=== PATIENT | male | born 1930 | race Caucasian/White ===

== ENCOUNTER 2017-01-13 18:18 | Inpatient (IN) | payer OTHER ==
--- NOTE | 2017-01-13 18:29 | PDOC ---
History of Present Illness - General History Source: Patient, EMS Exam Limitations: Other - History of Present Illness Initial Comments: 01/13/17 18:45 The patient is a 86 year old male, with a significant past medical history of A- Fib(on coumadin), CHF, hypertension, aortic aneurysm repair, aortic valve replacement, GI bleeds(Hgb was stable so they put the pt back on coumadin due to hx of A-Fib)who presents to the ED BIBA from [facility] for possible sepsis. Per EMS patient was found to be hypotensive when they arrived on scene[facility] reported patient was confused and not at his baseline mental status. As per Dr. Davila, patient did not appear well and bloodwork was done. Dr. Davila reports patient's INR was 3, but the patient does not have H&H results at this ti,e. Patient denies any abdominal pain, nausea, vomiting, diarrhea, or constipation. He denies any chest pain, shortness of breath, diaphoresis, or palpitations. Patients history is limited due to clinical condition. Allergies: NKDA Past Surgical History: Aortic aneurysm repair, aortic valve replacement. Social History: Current everyday smoker. No ETOH or recreational drug use reported. <Aline Steve - Last Filed: 01/13/17 19:08> <Lala Krause - Last Filed: 01/13/17 20:13> - General Stated Complaint: BLOOD PRESSURE PROBLEM Time Seen by Provider: 01/13/17 18:29 Past History <Aline Steve - Last Filed: 01/13/17 19:08> <Lala Krause - Last Filed: 01/13/17 20:13> - Past Medical History Allergies/Adverse Reactions: Allergies Allergy/AdvReac Type Severity Reaction Status Date / Time No Known Allergies Allergy Verified 01/13/17 18:29 Review of Systems - Review of Systems Able to Perform ROS?: No Comments:: 01/13/17 18:45 Unable to obtain due to clinical condition. <Aline Steve - Last Filed: 01/13/17 19:08> *Physical Exam - Vital Signs Last Vital Signs Temp Pulse Resp BP Pulse Ox 96.4 F L 62 18 79/45 89 L 01/13/17 18:20 01/13/17 18:20 01/13/17 18:20 01/13/17 18:20 01/13/17 18:20 - Physical Exam Comments: 01/13/17 18:46 GENERAL: Awake and confused, in no acute distress HEAD: No signs of trauma EYES: PERRLA, EOMI, sclera anicteric, conjunctiva clear ENT: Auricles normal inspection, hearing grossly normal, nares patent, oropharynx clear without exudates. Moist mucosa NECK: Normal ROM, supple, no lymphadenopathy, JVD, or masses LUNGS: Diffuse rales and ronchi. No wheezes, and no crackles HEART: Irregularly irregular. Tachycardic. normal S1 and S2, no murmurs, rubs or gallops ABDOMEN: Soft, nontender, normoactive bowel sounds. No guarding, no rebound. No masses EXTREMITIES: Normal range of motion, no edema. No clubbing or cyanosis. No cords, erythema, or tenderness NEUROLOGICAL: Cranial nerves II through XII grossly intact. limited speech, gait deferred SKIN: Warm, Dry, normal turgor, no rashes or lesions noted. <Aline Steve - Last Filed: 01/13/17 19:08> Heart Score/ECG Review - ECG Intrepretation Comment:: 01/13/17 18:46 Afib at 108, right bundle branch block. t wave inversions in the inferior leads. Abnormal EKG. <Aline Steve - Last Filed: 01/13/17 19:08> ED Treatment Course - LABORATORY CBC & Chemistry Diagram: 01/13/17 19:00 01/13/17 19:00 <Lala Krause - Last Filed: 01/13/17 20:13> Medical Decision Making - Critical Care Time Total Critical Care Time (minutes): 45 Critical Care Statement: The care of this patient involved high complexity decision making to prevent further life threatening deterioration of the patient 's condition and/or to evaluate & treat vital organ system(s) failure or risk of failure. <Aline Steve - Last Filed: 01/13/17 19:08> - Critical Care Time Total Critical Care Time (minutes): 45 Critical Care Statement: The care of this patient involved high complexity decision making to prevent further life threatening deterioration of the patient 's condition and/or to evaluate & treat vital organ system(s) failure or risk of failure. - Medical Decision Making 01/13/17 20:06 a/p: 86yo male presents for eval of hypotension and confusion -pt with hx of aortic valve replacement, gi bleed, on coumadin, hx of aortic aneurysm repair at [place], hx of etoh use. -pt with melena -pt with hematuria -pt hypotensive and tachycardic upon arrival -INR per PMD was 3 today -hx of GI bleeding requiring 14units pRBC transfusion. -sepsis protocol started -ivf hydration, labs, cultures, stool for c diff and for heme -bipap for resp distress -pt will need admission and ICU consultation 01/13/17 20:08 pt verbally agreed to blood transfusion. Verbalized full understanding of transufsion. AAOx3 01/13/17 20:08 pt signed out to the oncoming ED physician pending labs, further workup <Lala Krause - Last Filed: 01/13/17 20:13> *DC/Admit/Observation/Transfer - Attestations Scribe Attestion: 01/13/17 18:46 Documentation prepared by Aline Steve, acting as medical doctor md/medical director for Lala Krause DO. <Aline Steve - Last Filed: 01/13/17 19:08> <Lala Krause - Last Filed: 01/13/17 20:13> Diagnosis at time of Disposition: Hypotension, Acidosis, Respiratory acidosis, Gastrointestinal hemorrhage, Hematuria - Discharge Dispostion Condition at time of disposition: Critical - Referrals Referrals: Roque Chandra MD [Primary Care Provider] -
[2017-01-13] MEDS ORDERED: SODIUM CHLORIDE 0.9% 1000 ML INFUS.BAG IV ONE (18:43)
[2017-01-13 18:49] VITALS: BMI 32.5
[2017-01-13 19:20] LABS: BASOPHIL 0.2 % (0-2.0); EOSINOPHIL 0.5 % (0-4.5); MCH 31.2 pg (25.7-33.7); MCHC 32.9 g/dl (32.0-35.9); MEAN CELL VOLUME 94.7 fl (80-96); MEAN PLT VOLUME 7.3 fl (7.5-11.1); NEUTROPHILS 75.8 % (42.8-82.8); PLATELET COUNT 255 K/MM3 (134-434)
--- NOTE | 2017-01-13 19:31 | PDOC ---
*Physical Exam - Vital Signs Last Vital Signs Temp Pulse Resp BP Pulse Ox 96.3 F L 107 H 24 85/55 99 01/13/17 20:30 01/13/17 21:00 01/13/17 21:00 01/13/17 21:00 01/13/17 21:00 <YudiSandra A - Last Filed: 01/13/17 21:50> - Vital Signs Last Vital Signs Temp Pulse Resp BP Pulse Ox 96.4 F L 62 18 79/45 89 L 01/13/17 18:20 01/13/17 18:20 01/13/17 18:20 01/13/17 18:20 01/13/17 18:20 <Cristobal Dejesus - Last Filed: 01/14/17 05:30> ED Treatment Course - LABORATORY CBC & Chemistry Diagram: 01/13/17 19:00 01/13/17 19:00 - ADDITIONAL ORDERS Additional order review: Laboratory Results 01/13/17 01/13/17 01/13/17 21:35 21:35 20:40 INR PTT (Actin FS) Puncture Site Right brachial ABG pH 7.04 L* ABG pCO2 at Pt Temp 84.5 H* ABG pO2 at Pt Temp 133.0 H D ABG HCO3 21.7 L ABG O2 Sat (Measured) 98.2 ABG O2 Content 12.6 L ABG Base Excess -9.5 L Price Test Positive Carboxyhemoglobin 2.0 Methemoglobin 0.6 O2 Delivery Device Bi-pap Oxygen Flow Rate 60% Vent Mode S/t Vent Rate 17 PEEP 0.0 Pressure Support Vent 14/7 Sodium Potassium Chloride Carbon Dioxide Anion Gap BUN Creatinine Creat Clearance w eGFR Random Glucose Lactic Acid Calcium Magnesium Total Bilirubin AST ALT Alkaline Phosphatase Ammonia Creatine Kinase Troponin I B-Natriuretic Peptide Total Protein Albumin Lipase Urine Color Urine Appearance Urine pH Urine Protein Urine Glucose (UA) Urine Ketones Urine Blood Urine Nitrite Urine Bilirubin Urine Urobilinogen Urine RBC Urine WBC Ur Epithelial Cells Urine Bacteria Hyaline Casts Urine Mucus Stool Occult Blood Alcohol, Quantitative Blood Type O NEGATIVE Antibody Screen Crossmatch 01/13/17 01/13/17 01/13/17 20:25 19:40 19:38 INR PTT (Actin FS) Puncture Site Right radial ABG pH 7.08 L* ABG pCO2 at Pt Temp 78.9 H* ABG pO2 at Pt Temp 159.0 H* ABG HCO3 22.3 ABG O2 Sat (Measured) 98.9 ABG O2 Content 13.0 L ABG Base Excess -8.1 L Price Test Positive Carboxyhemoglobin 2.3 H Methemoglobin 0.6 O2 Delivery Device Bi-pap Oxygen Flow Rate 100% Vent Mode S/t Vent Rate 16 PEEP 0.0 Pressure Support Vent 14/7 Sodium Potassium Chloride Carbon Dioxide Anion Gap BUN Creatinine Creat Clearance w eGFR Random Glucose Lactic Acid Calcium Magnesium Total Bilirubin AST ALT Alkaline Phosphatase Ammonia Creatine Kinase Troponin I B-Natriuretic Peptide Total Protein Albumin Lipase Urine Color Urine Appearance Urine pH Urine Protein Urine Glucose (UA) Urine Ketones Urine Blood Urine Nitrite Urine Bilirubin Urine Urobilinogen Urine RBC Urine WBC Ur Epithelial Cells Urine Bacteria Hyaline Casts Urine Mucus Stool Occult Blood Alcohol, Quantitative 96.2 H* Blood Type Antibody Screen Crossmatch 01/13/17 01/13/17 01/13/17 19:00 19:00 19:00 INR PTT (Actin FS) Puncture Site ABG pH ABG pCO2 at Pt Temp ABG pO2 at Pt Temp ABG HCO3 ABG O2 Sat (Measured) ABG O2 Content ABG Base Excess Price Test Carboxyhemoglobin Methemoglobin O2 Delivery Device Oxygen Flow Rate Vent Mode Vent Rate PEEP Pressure Support Vent Sodium Potassium Chloride Carbon Dioxide Anion Gap BUN Creatinine Creat Clearance w eGFR Random Glucose Lactic Acid 2.7 H* Calcium Magnesium Total Bilirubin AST ALT Alkaline Phosphatase Ammonia 27.79 Creatine Kinase Troponin I B-Natriuretic Peptide Total Protein Albumin Lipase Urine Color Urine Appearance Urine pH Urine Protein Urine Glucose (UA) Urine Ketones Urine Blood Urine Nitrite Urine Bilirubin Urine Urobilinogen Urine RBC Urine WBC Ur Epithelial Cells Urine Bacteria Hyaline Casts Urine Mucus Stool Occult Blood Positive Alcohol, Quantitative Blood Type Antibody Screen Crossmatch 01/13/17 01/13/17 01/13/17 19:00 19:00 19:00 INR PTT (Actin FS) Puncture Site ABG pH ABG pCO2 at Pt Temp ABG pO2 at Pt Temp ABG HCO3 ABG O2 Sat (Measured) ABG O2 Content ABG Base Excess Price Test Carboxyhemoglobin Methemoglobin O2 Delivery Device Oxygen Flow Rate Vent Mode Vent Rate PEEP Pressure Support Vent Sodium 133 L Potassium 5.3 H Chloride 98 Carbon Dioxide 22 Anion Gap 13 BUN 73 H Creatinine 4.1 H Creat Clearance w eGFR 13.97 Random Glucose 121 H Lactic Acid Calcium 8.1 L Magnesium 2.3 Total Bilirubin 0.5 AST 17 ALT 15 Alkaline Phosphatase 72 Ammonia Creatine Kinase 43 Troponin I 0.03 B-Natriuretic Peptide 40076.41 H Total Protein 6.3 L Albumin 2.8 L Lipase 477 H Urine Color Urine Appearance Urine pH Urine Protein Urine Glucose (UA) Urine Ketones Urine Blood Urine Nitrite Urine Bilirubin Urine Urobilinogen Urine RBC Urine WBC Ur Epithelial Cells Urine Bacteria Hyaline Casts Urine Mucus Stool Occult Blood Alcohol, Quantitative Blood Type O NEGATIVE Antibody Screen Negative Crossmatch See Detail 01/13/17 01/13/17 19:00 19:00 INR 6.46 H* PTT (Actin FS) 67.5 H Puncture Site ABG pH ABG pCO2 at Pt Temp ABG pO2 at Pt Temp ABG HCO3 ABG O2 Sat (Measured) ABG O2 Content ABG Base Excess Price Test Carboxyhemoglobin Methemoglobin O2 Delivery Device Oxygen Flow Rate Vent Mode Vent Rate PEEP Pressure Support Vent Sodium Potassium Chloride Carbon Dioxide Anion Gap BUN Creatinine Creat Clearance w eGFR Random Glucose Lactic Acid Calcium Magnesium Total Bilirubin AST ALT Alkaline Phosphatase Ammonia Creatine Kinase Troponin I B-Natriuretic Peptide Total Protein Albumin Lipase Urine Color Dk. orange Urine Appearance Sl cloudy Urine pH 5.0 Urine Protein 1+ H Urine Glucose (UA) Negative Urine Ketones Negative Urine Blood 3+ H Urine Nitrite Negative Urine Bilirubin 1+ H Urine Urobilinogen 1.0 Urine RBC 1387 Urine WBC 27 Ur Epithelial Cells Rare Urine Bacteria Rare Hyaline Casts 3 Urine Mucus Rare Stool Occult Blood Alcohol, Quantitative Blood Type Antibody Screen Crossmatch 01/13/17 19:00 RBC 2.95 L MCV 94.7 MCHC 32.9 RDW 16.0 H MPV 7.3 L Neutrophils % 75.8 Lymphocytes % 9.8 Monocytes % 13.7 H Eosinophils % 0.5 Basophils % 0.2 - Medications Given in the ED: ED Medications Discontinued Medications Generic Name Dose Route Start Last Admin Trade Name Freq PRN Reason Stop Dose Admin Albuterol/Ipratropium 1 amp 01/13/17 21:06 01/13/17 21:33 Duoneb - NEB 01/13/17 21:07 1 amp ONCE ONE Administration Pantoprazole Sodium 80 mg/ 100 mls @ 200 mls/hr 01/13/17 20:03 01/13/17 20:23 Sodium Chloride IVPB 01/13/17 20:32 200 mls/hr ONCE ONE Administration Methylprednisolone Sodium Succinate 125 mg 01/13/17 20:12 01/13/17 21:20 Solu-Medrol - IVPB 01/13/17 20:13 125 mg ONCE ONE Administration Phytonadione 5 mg 01/13/17 19:56 01/13/17 20:30 Aqua Mephyton Injection - IVPB 01/13/17 19:57 5 mg ONCE ONE Administration Sodium Chloride 2,000 ml 01/13/17 18:43 01/13/17 19:25 Normal Saline - IV 01/13/17 18:44 2,000 ml ONCE ONE Administration <Sandra Bagley - Last Filed: 01/13/17 21:50> - LABORATORY CBC & Chemistry Diagram: 01/14/17 02:30 01/14/17 02:30 - ADDITIONAL ORDERS Additional order review: Laboratory Results 01/13/17 19:00 Stool Occult Blood Positive 01/13/17 19:00 RBC 2.95 L MCV 94.7 MCHC 32.9 RDW 16.0 H MPV 7.3 L Neutrophils % 75.8 Lymphocytes % 9.8 Monocytes % 13.7 H Eosinophils % 0.5 Basophils % 0.2 - Medications Given in the ED: ED Medications Discontinued Medications Generic Name Dose Route Start Last Admin Trade Name Yasmaniq PRN Reason Stop Dose Admin Sodium Chloride 2,000 ml 01/13/17 18:43 01/13/17 19:25 Normal Saline - IV 01/13/17 18:44 2,000 ml ONCE ONE Administration <Cristobal Dejesus - Last Filed: 01/14/17 05:30> Medical Decision Making - Medical Decision Making 01/13/17 21:[address] Dylon Chandra. [phone]. 01/13/17 21:[address] Dory Whipple. [phone]. 01/13/17 21:[address] Merissa So. [phone]. 01/13/17 21:[address] Gregorio Lazo. [phone]. <Sandra Bagley A - Last Filed: 01/13/17 21:50> - Medical Decision Making 01/13/17 19:29 Pt sigend out to me from Dr. Krause pt is an 86 yM hx of chf, copd, ckd, afib on coumadin c/p pm, s/p avr and aortic aneyrusm repair presents with AMS/Hypotension and melena/hematuria 01/13/17 20:08 pts labs reivewed hbg of 9 inr of 6 pt noted to be acidodic with an elevated bicarb - cmp pending will give FFP/vitamin K to reverse INR due to the pts hypotension willgive iu of probc to start pt agrees to blood transfusion anticipate ICU admission per [place] staff, pt also drinks daily, with melena, concern for GIB - will give octreotide and protonix gtt etoh level pending 01/13/17 21:28 pt clinically in improving mental status nguyen, aox3 bp still tenous with MAP around 65 perfusion seems to be improving with cap refill approx 1.5 sec awaiting blood will admit to ICU will consult GI case dw dr. obrien agree with mangement, requests admissiion under dr. bustamante service awaiting call back from dr. whipple 01/13/17 21:45 case evette whipple agree with admission to ICU requests consultation with dr. Rodriguez 01/13/17 21:[address] white agree with admission and reversal of INR and blood product & icu admission Case discussed in detail with admitting physician including history, physical exam and ancillary studies. Admitting physician has assumed care for the patient, will follow all pending diagnostics and will complete the evaluation and treatment. 01/13/17 22:50 case evette costa of ICU accepted for admission to icu latest ABG was prior to treatemtn with dina - will repeat another abg, as pt clnically is improving (AOx3), will defer intubatio for respiratory failure - if worsening mental status or blood gas will consider intubation. bp stable in the MAP 65 range. consider pressors/central line if persistently hyptensive <Cristobal Dejesus - Last Filed: 01/14/17 05:30> *DC/Admit/Observation/Transfer <Sandra Bagley - Last Filed: 01/13/17 21:50> - Discharge Dispostion Admit: Yes <Anjelica,Cristobal - Last Filed: 01/14/17 05:30> Diagnosis at time of Disposition: Acidosis, Respiratory acidosis Hypotension Qualifiers: Hypotension type: unspecified hypotension type Qualified Code(s): I95.9 - Hypotension, unspecified GI bleed Qualifiers: GI bleed type/associated pathology: melena Qualified Code(s): K92.1 - Melena Hematuria Qualifiers: Hematuria type: unspecified type Qualified Code(s): R31.9 - Hematuria, unspecified - Discharge Dispostion Condition at time of disposition: Critical - Referrals - Patient Instructions - Post Discharge Activity
[2017-01-13 19:37] LABS: PROTHROMBIN TIME (PATIENT) 73.8 SEC (9.98-11.88)
[2017-01-13 19:39] LABS: ARTERIAL BLD GAS O2 SATURATION 98.9 % (90-98.9); ARTERIAL BLOOD GAS BASE EXCESS -8.1 meq/l (-2-2); ARTERIAL BLOOD GAS HCO3 22.3 meq/L (22-26)
[2017-01-13 19:40] LABS: ACTIVATED PTT 67.5 SECONDS (26.9-34.4)
[2017-01-13 19:41] LABS: ALLENS TEST POSITIVE; ART PUNCT SITE RIGHT RADIAL; LPM/O2% 100%; PT. ON O2? YES; TYPE OF O2 BI-PAP; VENT RATE 16; VT/PRESS 14/7
[2017-01-13 19:42] LABS: ARTERIAL BLOOD GAS pH 7.08 (7.35-7.45)
[2017-01-13 19:44] LABS: METHEMOGLOBIN 0.6 % (0.4-1.5)
[2017-01-13 19:47] LABS: INR 6.46 (0.82-1.09)
[2017-01-13 19:50] LABS: URINE APPEARANCE SL CLOUDY; URINE BILIRUBIN 1+ (NEGATIVE); URINE BLOOD 3+ (NEGATIVE); URINE COLOR DK. ORANGE; URINE GLUCOSE (UA) NEGATIVE (NEGATIVE); URINE KETONE NEGATIVE (NEGATIVE); URINE NITRITE NEGATIVE (NEGATIVE); URINE PROTEIN 1+ (NEGATIVE)
[2017-01-13] MEDS ORDERED: PHYTONADIONE 10 MG/1 ML AMP IVPB ONE (19:56)
[2017-01-13] MEDS ORDERED: PANTOPRAZOLE SODIUM 80 MG in SODIUM CHLORIDE 100 ML IVPB ONE (20:03)
[2017-01-13 20:11] LABS: URINE BACTERIA RARE /hpf (NONE SEEN); URINE HYALINE CAST 3 /lpf; URINE MUCUS RARE; URINE RBC 1387 /hpf (0-3); URINE WBC 27 /hpf (3-5)
[2017-01-13] MEDS ORDERED: methylPREDNISolone NA SUCC 125 MG/2 ML VIAL IVPB ONE (20:12)
[2017-01-13] MEDS ORDERED: OCTREOTIDE ACETATE 1,200 MCG in DEXTROSE 5%-WATER - 488 ML IVPB SCH (20:15)
[2017-01-13] MEDS ORDERED: PANTOPRAZOLE SODIUM 80 MG in SODIUM CHLORIDE 100 ML IVPB SCH (20:15)
[2017-01-13] MEDS ORDERED: PANTOPRAZOLE SODIUM 40 MG VIAL ONE (20:19)
[2017-01-13] MEDS ORDERED: PANTOPRAZOLE SODIUM 200 ML IVPB ONE (20:19)
[2017-01-13] MEDS ORDERED: PHYTONADIONE 10 MG/1 ML AMP ONE (20:19)
[2017-01-13 20:37] LABS: ALBUMIN 2.8 g/dl (3.4-5.0); ALK PHOS 72 U/L (45-117); ANION GAP 13 (8-16); BILIRUBIN,TOTAL 0.5 mg/dL (0.2-1.0); CALCIUM 8.1 mg/dL (8.5-10.1); CO2 22 mmol/L (21-32); CPK 43 IU/L (39-308); CREATININE 4.1 mg/dL (0.7-1.3); GLUCOSE,RANDOM 121 mg/dL (74-106); MAGNESIUM 2.3 mg/dL (1.8-2.4); SGOT/AST 17 U/L (15-37); SGPT/ALT 15 U/L (12-78); TOT PROT 6.3 g/dl (6.4-8.2); TROPONIN I 0.03 ng/ml (0.00-0.05)
[2017-01-13] MEDS: PANTOPRAZOLE SODIUM 80 MG in SODIUM CHLORIDE 100 ML IVPB SCH (20:55)
[2017-01-13] MEDS ORDERED: ALBUTEROL SO4 2.5/IPRATROPIUM 0.5 INH SOL 3 ML VIAL.NEB. NEB ONE ×2 (21:06→21:30)
[2017-01-13] MEDS ORDERED: methylPREDNISolone NA SUCC 125 MG/2 ML VIAL ONE (21:12)
[2017-01-13 21:45] LABS: ARTERIAL BLD GAS O2 SATURATION 98.2 % (90-98.9); ARTERIAL BLOOD GAS BASE EXCESS -9.5 meq/l (-2-2); ARTERIAL BLOOD GAS HCO3 21.7 meq/L (22-26)
[2017-01-13 21:46] LABS: ALLENS TEST POSITIVE; ART PUNCT SITE RIGHT BRACHIAL; LPM/O2% 60%; PT. ON O2? YES; TYPE OF O2 BI-PAP; VENT RATE 17; VT/PRESS 14/7
[2017-01-13 21:47] LABS: ARTERIAL BLOOD GAS pH 7.04 (7.35-7.45)
[2017-01-13 21:48] LABS: METHEMOGLOBIN 0.6 % (0.4-1.5)
[2017-01-13] MEDS ORDERED: PHENYLEPHRINE HCL 10 MG/1 ML SINGLE DOSE VIAL ONE (23:50)
--- NOTE | 2017-01-14 00:27 | CONSULT ---
Consult Consult Specialty:: Pulm/CCM Reason for Consultation:: GIB in setting of supratherapeutic INR on coumadin - History of Present Illness Chief Complaint: AMS; respiratory acidosis History of Present Illness: 86yom [place] resident PMHx HTN, CHF, A-fib on coumadin, Aortic valve repair, Pacemaker, GIB, CKD was sent from [place] with report of melena, hypotension and AMS. In ED with hypercarbic respiratory failure, failing NIVV support. He was transferred to ICU for management In ED BP 82/53 after 1L NS bolus Had melena and hematuria. Labs notable for INR 6.46, WBC 8.0, Hgb 9.2, Lact 2.7, BUN/Creat 73/4.1, BNP 34,797.4, alcohol level 96.2urine WBC 27. Started on Protonix and octreotide drips for alcohol level and hx of daily ETOH use. ABG on NIVV 16/12 7.08, 78, 159. CXR with LLL consolidation and pulm congestion. Given Vit K 5mg. Transferred to ICU on NIVV In ICU intubated for hypercarbic respiratory failure. Started on phenylephrine drip for hypotension. FFP and PRBC reordered. Sedated with propofol. Dobutamine and Lasix started for diuresis and Azithro and Zosyn for possible pneumonia. - History Source Limitations to Obtaining History: Other (Lethargic) - Past Medical History Cardio/Vascular: Yes: CHF, HTN Gastrointestinal: Yes: GI Bleed Renal/: Yes: Renal Failure - Alcohol/Substance Use Hx Alcohol Use: No - Smoking History Smoking history: Current every day smoker Aproximately how many cigarettes per day: 10 - Social History Usual Living Arrangement: [facility]) History of Recent Travel: No Home Medications - Allergies Allergies/Adverse Reactions: Allergies Allergy/AdvReac Type Severity Reaction Status Date / Time No Known Allergies Allergy Verified 01/13/17 18:29 - Home Medications Home Medications: Ambulatory Orders Enalapril Maleate [Vasotec -] 10 mg PO DAILY 01/13/17 Ferrous Sulfate 325 mg PO BID 01/13/17 Folic Acid 1 mg PO DAILY 01/13/17 Guaifenesin [Mucinex] 600 mg PO BID 01/13/17 Pantoprazole Sodium 40 mg PO DAILY 01/13/17 Potassium Chloride [K-Tab ER] 10 meq PO DAILY 01/13/17 Simvastatin 40 mg PO HS 01/13/17 Sucralfate [Carafate -] 1 gm PO AC 01/13/17 Warfarin Na [Coumadin] 5 mg PO DAILY 01/13/17 Review of Systems Unable to obtain ROS, reason: Lethargic - Review of Systems Constitutional: reports: Lethargy Physical Exam Vital Signs: Vital Signs Temperature 96.3 F L 01/13/17 20:30 Pulse Rate 107 H 01/13/17 21:00 Respiratory Rate 24 01/13/17 21:00 Blood Pressure 85/55 01/13/17 21:00 O2 Sat by Pulse Oximetry (%) 100 01/13/17 23:34 Constitutional: Yes: Obese Eyes: Yes: Conjunctiva Clear, PERRL HENT: Yes: Atraumatic Neck: Yes: Supple Cardiovascular: Yes: Pulse Irregular, Gallop, S1, S2 Respiratory: Yes: Diminished, On BiPap Gastrointestinal: Yes: Soft, Abdomen, Obese, Melena Renal/: Yes: Concepcion Present, Hematuria Musculoskeletal: Yes: WNL Edema: No Peripheral Pulses WNL: Yes Neurological: Yes: Lethargy, Other (Easily aroused; follows commands) Psychiatric: Yes: Other (lethargic) Labs: CBC,CMP WBC 8.0 K/mm3 (4.0-10.0) 01/13/17 19:00 RBC 2.95 M/mm3 (4.00-5.60) L 01/13/17 19:00 Hgb 9.2 GM/dL (11.7-16.9) L 01/13/17 19:00 Hct 28.0 % (35.4-49) L 01/13/17 19:00 MCV 94.7 fl (80-96) 01/13/17 19:00 MCH 31.2 pg (25.7-33.7) 01/13/17 19:00 MCHC 32.9 g/dl (32.0-35.9) 01/13/17 19:00 RDW 16.0 % (11.9-15.9) H 01/13/17 19:00 Plt Count 255 K/MM3 (134-434) 01/13/17 19:00 MPV 7.3 fl (7.5-11.1) L 01/13/17 19:00 Neutrophils % 75.8 % (42.8-82.8) 01/13/17 19:00 Lymphocytes % 9.8 % (8-40) 01/13/17 19:00 Monocytes % 13.7 % (3.8-10.2) H 01/13/17 19:00 Eosinophils % 0.5 % (0-4.5) 01/13/17 19:00 Basophils % 0.2 % (0-2.0) 01/13/17 19:00 Sodium 133 mmol/L (136-145) L 01/13/17 19:00 Potassium 5.3 mmol/L (3.5-5.1) H 01/13/17 19:00 Chloride 98 mmol/L (98-107) 01/13/17 19:00 Carbon Dioxide 22 mmol/L (21-32) 01/13/17 19:00 Anion Gap 13 (8-16) 01/13/17 19:00 BUN 73 mg/dL (7-18) H 01/13/17 19:00 Creatinine 4.1 mg/dL (0.7-1.3) H 01/13/17 19:00 Creat Clearance w eGFR 13.97 (>60) 01/13/17 19:00 Random Glucose 121 mg/dL (74-106) H 01/13/17 19:00 Lactic Acid 2.7 mmol/L (0.4-2.0) H* 01/13/17 19:00 Calcium 8.1 mg/dL (8.5-10.1) L 01/13/17 19:00 Magnesium 2.3 mg/dL (1.8-2.4) 01/13/17 19:00 Total Bilirubin 0.5 mg/dL (0.2-1.0) 01/13/17 19:00 AST 17 U/L (15-37) 01/13/17 19:00 ALT 15 U/L (12-78) 01/13/17 19:00 Alkaline Phosphatase 72 U/L (45-117) 01/13/17 19:00 Ammonia 27.79 umol/L (11-32) 01/13/17 19:00 Creatine Kinase 43 IU/L (39-308) 01/13/17 19:00 Troponin I 0.03 ng/ml (0.00-0.05) 01/13/17 19:00 B-Natriuretic Peptide 13321.41 pg/ml (5-450) H 01/13/17 19:00 Total Protein 6.3 g/dl (6.4-8.2) L 01/13/17 19:00 Albumin 2.8 g/dl (3.4-5.0) L 01/13/17 19:00 Lipase 477 U/L (73-393) H 01/13/17 19:00 Current Medications Albuterol/Ipratropium (Duoneb -) 1 amp NEB QIDR JESSICA Octreotide Acetate 1,200 mcg/ (Dextrose) 500 mls @ 20.83 mls/hr IVPB ASDIR JESSICA PRN Reason: 50 MCG/HR Last Admin: 01/13/17 21:11 Dose: 20.83 mls/hr Pantoprazole Sodium 80 mg/ (Sodium Chloride) 100 mls @ 10 mls/hr IVPB Q10H JESSICA PRN Reason: 8 MG/HR Last Admin: 01/13/17 20:55 Dose: 10 mls/hr Phenylephrine HCl 20,000 mcg/ (Sodium Chloride) 250 mls @ 75 mls/hr IVPB ASDIR JESSICA; 100 MCG/MIN PRN Reason: Protocol Last Admin: 01/14/17 00:30 Dose: 75 mls/hr Dobutamine HCl/Dextrose (Dobutamine 250 Mg/D5w -) 250 mls @ 16.329 mls/hr IV TITR JESSICA; 2.5 MCG/KG/MIN PRN Reason: Protocol Last Admin: 01/14/17 01:50 Dose: 16.329 mls/hr Propofol (Diprivan -) 100 mls @ 3.265 mls/hr IVPB TITR JESSICA; 5 MCG/KG/MIN PRN Reason: Protocol Last Admin: 01/14/17 01:15 Dose: 3.265 mls/hr Azithromycin (Zithromax 500mg Ivpb (Pre-Docked)) 250 mls @ 250 mls/hr IVPB DAILY JESSICA Piperacillin Sod/Tazobactam Sod (Zosyn 3.375gm Ivpb (Pre-Docked)) 3.375 gm IVPB ONCE ONE PRN Reason: Protocol Stop: 01/14/17 02:46 Piperacillin Sod/Tazobactam Sod (Zosyn 3.375gm Ivpb (Pre-Docked)) 3.375 gm IVPB BID JESSICA PRN Reason: Protocol Vent AC/VC /500/40/5 Intake & Output 01/11/17 01/12/17 01/13/17 01/14/17 23:59 23:59 23:59 23:59 Output Total 10 Balance -10 Weight 108.862 kg 108.817 kg Imaging - Results Chest X-ray: Image Reviewed (Lt lung consolidation, pulm congestion) Problem List - Problems (1) Acidosis Code(s): E87.2 - ACIDOSIS (2) GI bleed Code(s): K92.2 - GASTROINTESTINAL HEMORRHAGE, UNSPECIFIED Qualifiers: GI bleed type/associated pathology: melena Qualified Code(s): K92.1 - Melena (3) Hematuria Code(s): R31.9 - HEMATURIA, UNSPECIFIED Qualifiers: Hematuria type: unspecified type Qualified Code(s): R31.9 - Hematuria, unspecified (4) Hypotension Code(s): I95.9 - HYPOTENSION, UNSPECIFIED Qualifiers: Hypotension type: unspecified hypotension type Qualified Code(s): I95.9 - Hypotension, unspecified (5) Respiratory acidosis Code(s): E87.2 - ACIDOSIS (6) Renal failure (ARF), acute on chronic Code(s): N17.9 - ACUTE KIDNEY FAILURE, UNSPECIFIED N18.9 - CHRONIC KIDNEY DISEASE, UNSPECIFIED Assessment/Plan 86 yom [place] resident PMHx HTN, CHF, A-fib on coumadin, Aortic valve repair, Pacemaker, GIB, CKD was sent from [place] with report of melena, hypotension and AMS. Admitted to ICU with hypercarbic respiratory failure requiring intubation m /l @/@ to CHF exacerbation +/- PNA possibly aspiration in setting of AMS d/t? intoxication. Ccb supratherapeutic INR c/b GIB, hgb stable also with shock poss hemorhagic +/- sepsis, also with oliguric acute on chronic renal failure. Plan: Pulm: Intubated d/t hypercarbic resp failure-CHF exacerbation+/- PNA -LTVV goal Plat <30 -ABG -Sedation for vent synchrony -cont nebs -Antibiotics for poss PNA CV: Shock; CHF exacerbation -Vaspressor as needed for MAP>60 -Consider dobutamine for inotropy -Lasix diuresis with blood products -TTE in am -Trend troponin and lactate ID: ? Aspiration PNA +/- UTI -Azithro and Zosyn for empiric coverage -F/u cultures Heme/GI: GIB and hematuria in setting of supratherapeutic INR -GI consult for poss EGD/Colonoscopy -Hold coumadin -2UFFP and 1U PRBC now -Monitor CBC and coags q6 -Cont vit K1mg daily for goal INR<2 -Cont Protonix drip -Consider d/c octreotide if LFTs wnl -Maintain large bore IVs -Monitor LFTs and ammonia Renal: Acute on chronic renal failure m/l pre renal re CHF and bleed -Nephrology consult -Monitor BMP and UOP -Diuresis -renal dose meds Neuro: ETOH abuse; sedation for vent synchrony -Propofol drip for RASS -2-3 -CIWA protocol DVT proph: SCDs Sienna Pereyra ACNP
[2017-01-14] MEDS: PHENYLEPHRINE HCL 20,000 MCG in SODIUM CHLORIDE 248 ML IVPB SCH (00:30)
[2017-01-14] MEDS ORDERED: FUROSEMIDE 40 MG/4 ML INJECTABLE VIAL IVPUSH ONE (00:41)
[2017-01-14] MEDS ORDERED: DOBUTAMINE 250 MG/D5W - 250 ML IV SCH (00:45)
[2017-01-14] MEDS ORDERED: MIDAZOLAM HCL 2 MG/2 ML SINGLE DOSE VIAL ONE (00:56)
[2017-01-14] MEDS: PROPOFOL 100 ML IVPB SCH ×4 (01:15→20:24)
--- NOTE | 2017-01-14 01:15 | PROC ---
Procedure Note Procedure: Anesthesia Fire Sprinkler Inspector Called to intubate pt with respiratory failure. Using glyde scope #7.5 ETT passed without trauma after direct visualization of the cord. +etco2 + bs=B Tube taped at 22cm at the lip 2mg versed used Sat 100% BP 126/68 p 76 Care left to the ICU team Jagjit Gonzalez MD
[2017-01-14 01:45] LABS: ARTERIAL BLOOD GAS pH 7.07 (7.35-7.45)
[2017-01-14] MEDS ORDERED: CEFTRIAXONE 50 ML IVPB SCH ×2 (01:45→10:00)
[2017-01-14 01:46] LABS: ALLENS TEST POSITIVE; ART PUNCT SITE RIGHT BRACHIAL; ARTERIAL BLD GAS O2 SATURATION 93.7 % (90-98.9); ARTERIAL BLOOD GAS BASE EXCESS -9.1 meq/l (-2-2); ARTERIAL BLOOD GAS HCO3 21.5 meq/L (22-26); ARTERIAL BLOOD GAS PO2 80.6 mmHg (68-100); LPM/O2% 40; PT. ON O2? YES; TYPE OF O2 BIPAP; VENT RATE 20; VT/PRESS 18/10
[2017-01-14 02:23] LABS: ARTERIAL BLD GAS O2 SATURATION 94.8 % (90-98.9); ARTERIAL BLOOD GAS BASE EXCESS -6.9 meq/l (-2-2); ARTERIAL BLOOD GAS HCO3 20.8 meq/L (22-26); ARTERIAL BLOOD GAS PO2 79.1 mmHg (68-100)
[2017-01-14] MEDS ORDERED: MIDAZOLAM HCL 2 MG/2 ML SINGLE DOSE VIAL IVPUSH ONE (02:25)
[2017-01-14 02:28] LABS: ALLENS TEST POSITIVE; ART PUNCT SITE LEFT RADIAL; ARTERIAL BLOOD GAS pH 7.19 (7.35-7.45); LPM/O2% 40; PT. ON O2? YES; TYPE OF O2 VENT; VENT RATE 20; VT/PRESS 450
[2017-01-14 02:39] LABS: MCHC 32.9 g/dl (32.0-35.9); MEAN CELL VOLUME 94.3 fl (80-96); MEAN PLT VOLUME 7.3 fl (7.5-11.1); PLATELET COUNT 233 K/MM3 (134-434); RDW 15.9 % (11.9-15.9); WHITE BLOOD COUNT 5.6 K/mm3 (4.0-10.0)
[2017-01-14] MEDS: AZITHROMYCIN IVPB 250 ML IVPB SCH ×2 (02:44→11:57)
[2017-01-14] MEDS ORDERED: PIPERACILLIN/TAZOB 3.375 GM/50 ML PRE-DOCKED IVPB ONE (02:45)
[2017-01-14] MEDS ORDERED: PROPOFOL 100 ML ONE (02:48)
[2017-01-14 02:50] LABS: INR 2.33 (0.82-1.09); PROTHROMBIN TIME (PATIENT) 26.1 SEC (9.98-11.88)
[2017-01-14 02:53] LABS: ACTIVATED PTT 40.3 SECONDS (26.9-34.4)
[2017-01-14 03:00] LABS: ALBUMIN 2.8 g/dl (3.4-5.0); ALK PHOS 69 U/L (45-117); ANION GAP 13 (8-16); BILIRUBIN,TOTAL 0.6 mg/dL (0.2-1.0); CALCIUM 8.3 mg/dL (8.5-10.1); CO2 22 mmol/L (21-32); CREATININE 4.3 mg/dL (0.7-1.3); GLUCOSE,RANDOM 168 mg/dL (74-106); SGOT/AST 19 U/L (15-37); SGPT/ALT 15 U/L (12-78); TOT PROT 6.1 g/dl (6.4-8.2)
[2017-01-14 03:08] LABS: TROPONIN I 0.03 ng/ml (0.00-0.05)
[2017-01-14] MEDS ORDERED: PHENYLEPHRINE HCL 10 MG/1 ML SINGLE DOSE VIAL ONE (04:05)
[2017-01-14] MEDS ORDERED: PT OWN MED DRAWER 7, Y5N ONE ×2 (05:12→09:01)
[2017-01-14 06:18] LABS: MCH 31.2 pg (25.7-33.7); MCHC 33.5 g/dl (32.0-35.9); MEAN CELL VOLUME 92.9 fl (80-96); MEAN PLT VOLUME 7.3 fl (7.5-11.1); PLATELET COUNT 236 K/MM3 (134-434); RDW 15.4 % (11.9-15.9); WHITE BLOOD COUNT 6.6 K/mm3 (4.0-10.0)
[2017-01-14] MEDS: ALBUTEROL SO4 2.5/IPRATROPIUM 0.5 INH SOL 3 ML VIAL.NEB. NEB SCH ×3 (06:30→19:00)
[2017-01-14 06:32] LABS: INR 2.02 (0.82-1.09); PROTHROMBIN TIME (PATIENT) 22.5 SEC (9.98-11.88)
[2017-01-14] MEDS: PANTOPRAZOLE SODIUM 80 MG in SODIUM CHLORIDE 100 ML IVPB SCH ×2 (06:37→18:56)
[2017-01-14 06:40] LABS: ALBUMIN 2.7 g/dl (3.4-5.0); ANION GAP 14 (8-16); CALCIUM 7.8 mg/dL (8.5-10.1); CO2 20 mmol/L (21-32); GLUCOSE,RANDOM 203 mg/dL (74-106)
[2017-01-14 06:44] LABS: ALK PHOS 69 U/L (45-117); BILIRUBIN,TOTAL 0.9 mg/dL (0.2-1.0); CREATININE 3.9 mg/dL (0.7-1.3); SGOT/AST 19 U/L (15-37); SGPT/ALT 14 U/L (12-78); TOT PROT 5.9 g/dl (6.4-8.2)
[2017-01-14 07:35] LABS: ARTERIAL BLD GAS O2 SATURATION 97.6 % (90-98.9); ARTERIAL BLOOD GAS BASE EXCESS -6.4 meq/l (-2-2); ARTERIAL BLOOD GAS HCO3 17.5 meq/L (22-26)
[2017-01-14 07:37] LABS: ARTERIAL BLOOD GAS PO2 88.8 mmHg (68-100); ARTERIAL BLOOD GAS pH 7.36 (7.35-7.45)
[2017-01-14 07:38] LABS: ALLENS TEST POSITIVE; ART PUNCT SITE LEFT RADIAL; LPM/O2% 40%; MECH. VENT. ESPRIT; PT'S TEMP 100.2; PT. ON O2? YES; TYPE OF O2 MEC.VENT; VENT RATE 26; VT/PRESS 500
[2017-01-14 07:41] LABS: TOTAL CELLS COUNTED 100
--- NOTE | 2017-01-14 08:20 | PN ---
Physical Exam: SUBJECTIVE: Patient seen and examined. OBJECTIVE: Vital Signs Period Temp Pulse Resp BP Sys/Chahal Pulse Ox Last 24 Hr 97 F-100.2 F 95-121 16-26 76-142/38-94 95-100 Constitutional: Yes: Obese Eyes: Yes: Conjunctiva Clear HENT: Yes: Atraumatic, Normocephalic Neck: Yes: Supple, Trachea Midline Cardiovascular: Yes: Pulse Irregular, S1, S2 Respiratory: Yes: Intubated, Mechanically Ventilated, Rhonchi, Other (course breath sounds heard bilaterally) Gastrointestinal Inspection: No: Ascites, Scars ...Auscultate: Yes: Normoactive Bowel Sounds ...Palpate: Yes: Mass (5cm tender mass noted in the lower abdomen on the right, near midline, possibly bladder vs hernia), Soft, Tenderness (lower abdominal tenderness noted on the right). No: Firm/Rigid, Hepatomegaly, Splenomegaly ...Rectal Exam: Yes: Guaiac Positive (Dark black stool) Genitourinary: Yes: Concepcion Present, Hematuria Integumentary: Yes: WNL Neurological: No: Alert, Oriented Psychiatric: No: Alert, Oriented Laboratory Results - last 24 hr 01/14/17 01/14/17 01/14/17 00:10 00:10 00:30 WBC RBC Hgb Hct MCV MCH MCHC RDW Plt Count MPV Total Counted Neutrophils % Neutrophils % (Manual) Band Neuts % (Manual) Lymphocytes % Lymphocytes % (Manual) Monocytes % (Manual) INR PTT (Actin FS) Anticoagulation Therapy Y Puncture Site Right brachial Patient Temperature ABG pH 7.07 L* ABG pCO2 at Pt Temp 77.5 H* ABG pO2 at Pt Temp 80.6 D ABG HCO3 21.5 L ABG O2 Sat (Measured) 93.7 ABG O2 Content 12.6 L ABG Base Excess -9.1 L Price Test Positive O2 Delivery Device Bipap Oxygen Flow Rate 40 Vent Mode Y Vent Rate 20 Mechanical Rate Y PEEP 0.0 Pressure Support Vent 18/10 Sodium Potassium Chloride Carbon Dioxide Anion Gap BUN Creatinine Creat Clearance w eGFR Random Glucose Lactic Acid Calcium Total Bilirubin AST ALT Alkaline Phosphatase Creatine Kinase Troponin I B-Natriuretic Peptide Total Protein Albumin Blood Type O NEGATIVE O NEGATIVE Antibody Screen Negative Crossmatch See Detail 01/14/17 01/14/17 01/14/17 01:50 02:30 02:30 WBC 5.6 RBC 2.94 L Hgb 9.1 L Hct 27.7 L MCV 94.3 MCH 31.0 MCHC 32.9 RDW 15.9 Plt Count 233 MPV 7.3 L Total Counted Neutrophils % Neutrophils % (Manual) Band Neuts % (Manual) Lymphocytes % Lymphocytes % (Manual) Monocytes % (Manual) INR PTT (Actin FS) Anticoagulation Therapy Y Puncture Site Left radial Patient Temperature ABG pH 7.19 L* ABG pCO2 at Pt Temp 56.6 H D ABG pO2 at Pt Temp 79.1 ABG HCO3 20.8 L ABG O2 Sat (Measured) 94.8 ABG O2 Content 11.8 L ABG Base Excess -6.9 L Price Test Positive O2 Delivery Device Vent Oxygen Flow Rate 40 Vent Mode A/c Vent Rate 20 Mechanical Rate Y PEEP 5.0 Pressure Support Vent 450 Sodium 133 L Potassium 5.6 H Chloride 98 Carbon Dioxide 22 Anion Gap 13 BUN 74 H Creatinine 4.3 H Creat Clearance w eGFR 13.22 Random Glucose 168 H D Lactic Acid Calcium 8.3 L Total Bilirubin 0.6 AST 19 ALT 15 Alkaline Phosphatase 69 Creatine Kinase Troponin I B-Natriuretic Peptide Total Protein 6.1 L Albumin 2.8 L Blood Type Antibody Screen Crossmatch 01/14/17 01/14/17 01/14/17 02:30 02:30 02:30 WBC RBC Hgb Hct MCV MCH MCHC RDW Plt Count MPV Total Counted Neutrophils % Neutrophils % (Manual) Band Neuts % (Manual) Lymphocytes % Lymphocytes % (Manual) Monocytes % (Manual) INR 2.33 H D PTT (Actin FS) 40.3 H D Anticoagulation Therapy Puncture Site Patient Temperature ABG pH ABG pCO2 at Pt Temp ABG pO2 at Pt Temp ABG HCO3 ABG O2 Sat (Measured) ABG O2 Content ABG Base Excess Price Test O2 Delivery Device Oxygen Flow Rate Vent Mode Vent Rate Mechanical Rate PEEP Pressure Support Vent Sodium Potassium Chloride Carbon Dioxide Anion Gap BUN Creatinine Creat Clearance w eGFR Random Glucose Lactic Acid 2.0 Calcium Total Bilirubin AST ALT Alkaline Phosphatase Creatine Kinase 62 Troponin I 0.03 B-Natriuretic Peptide Total Protein Albumin Blood Type Antibody Screen Crossmatch 01/14/17 01/14/17 01/14/17 05:00 05:00 05:00 WBC 6.6 RBC 3.21 L Hgb 10.0 L Hct 29.8 L MCV 92.9 MCH 31.2 MCHC 33.5 RDW 15.4 Plt Count 236 MPV 7.3 L Total Counted 100 Neutrophils % Y Neutrophils % (Manual) 85 H Band Neuts % (Manual) 4 Lymphocytes % Y Lymphocytes % (Manual) 9 Monocytes % (Manual) 2 L INR 2.02 H PTT (Actin FS) Anticoagulation Therapy Puncture Site Patient Temperature ABG pH ABG pCO2 at Pt Temp ABG pO2 at Pt Temp ABG HCO3 ABG O2 Sat (Measured) ABG O2 Content ABG Base Excess Price Test O2 Delivery Device Oxygen Flow Rate Vent Mode Vent Rate Mechanical Rate PEEP Pressure Support Vent Sodium 131 L Potassium 6.0 H Chloride 97 L Carbon Dioxide 20 L Anion Gap 14 BUN 77 H Creatinine 3.9 H Creat Clearance w eGFR 14.80 Random Glucose 203 H D Lactic Acid Calcium 7.8 L Total Bilirubin 0.9 D AST 19 ALT 14 Alkaline Phosphatase 69 Creatine Kinase Troponin I B-Natriuretic Peptide Total Protein 5.9 L Albumin 2.7 L Blood Type Antibody Screen Crossmatch 01/14/17 01/14/17 05:00 07:25 WBC RBC Hgb Hct MCV MCH MCHC RDW Plt Count MPV Total Counted Neutrophils % Neutrophils % (Manual) Band Neuts % (Manual) Lymphocytes % Lymphocytes % (Manual) Monocytes % (Manual) INR PTT (Actin FS) Anticoagulation Therapy Puncture Site Left radial Patient Temperature 100.2 ABG pH 7.36 D ABG pCO2 at Pt Temp 32.2 L D ABG pO2 at Pt Temp 88.8 ABG HCO3 17.5 L ABG O2 Sat (Measured) 97.6 ABG O2 Content 12.6 L ABG Base Excess -6.4 L Price Test Positive O2 Delivery Device Mec.vent Oxygen Flow Rate 40% Vent Mode A/c Vent Rate 26 Mechanical Rate Esprit PEEP 5.0 Pressure Support Vent 500 Sodium Potassium Chloride Carbon Dioxide Anion Gap BUN Creatinine Creat Clearance w eGFR Random Glucose Lactic Acid Calcium Total Bilirubin AST ALT Alkaline Phosphatase Creatine Kinase Troponin I B-Natriuretic Peptide 03327.71 H Total Protein Albumin Blood Type Antibody Screen Crossmatch Active Medications Generic Name Dose Route Start Last Admin Trade Name Freq PRN Reason Stop Dose Admin Albuterol/Ipratropium 1 amp 01/14/17 06:00 01/14/17 06:30 Duoneb - NEB 1 amp QIDR JESSICA Administration Octreotide Acetate 1,200 mcg/ 500 mls @ 20.83 mls/hr 01/13/17 20:15 01/13/17 21 :11 Dextrose IVPB 20.83 mls/hr ASDIR JESSICA Administration 50 MCG/HR Pantoprazole Sodium 80 mg/ 100 mls @ 10 mls/hr 01/13/17 20:30 01/14/17 06:37 Sodium Chloride IVPB 10 mls/hr Q10H JESSICA Administration 8 MG/HR Phenylephrine HCl 20,000 mcg/ 250 mls @ 75 mls/hr 01/14/17 00:30 01/14/17 06:37 Sodium Chloride IVPB 15 mcg/min ASDIR JESSICA Titration Protocol 100 MCG/MIN Propofol 100 mls @ 3.265 mls/hr 01/14/17 01:15 01/14/17 06:37 Diprivan - IVPB 50 mcg/kg/min TITR JESSICA Titration Protocol 5 MCG/KG/MIN Azithromycin 250 mls @ 250 mls/hr 01/14/17 01:45 01/14/17 02:44 Zithromax 500mg Ivpb (Pre-Docked) IVPB 250 mls/hr DAILY JESSICA Administration Phytonadione 1 mg 01/14/17 10:00 Aqua Mephyton Injection - IVPB 01/14/17 10:01 ONCE ONE Piperacillin Sod/Tazobactam Sod 3.375 gm 01/14/17 10:00 Zosyn 3.375gm Ivpb (Pre-Docked) IVPB BID JESSICA Protocol CT THORAX AND ABDOMEN IMPRESSION: 1. Complete atelectasis of the left lower lobe and multi segment left upper lobe atelectasis secondary to occluded central and peripheral airways throughout the left lung, most likely secondary to mucus impaction. Pulmonary hygiene is recommended. Follow-up imaging is recommended after completion of therapy to exclude endobronchial lesions. 2. No pleural effusion. 3. Normal-appearing appendix. No renal or ureteral calculi. No hydroureteronephrosis. 4. Concepcion catheter balloon and small volume of hemorrhage within the urinary bladder. Gas within the urinary bladder is likely secondary to recent Concepcion catheter placement/ manipulation. 5. Aneurysmal enlargement of the ascending thoracic aorta measuring 4.4 cm and proximal descending thoracic aorta measuring 4.3 cm. 6. Fusiform infrarenal abdominal aortic aneurysm measuring up to 6.2 cm in diameter, status post aortobiiliac vascular stent graft. Right common iliac artery aneurysm measuring 3.7 cm, a 2.5 ASSESSMENT/PLAN: 86 yom [facility] resident PMHx HTN, CHF, A-fib on coumadin, Aortic valve repair, Pacemaker, GIB, CKD was sent from [place] with report of melena, hypotension and AMS. Admitted to ICU with hypercarbic respiratory failure requiring intubation m /l @/@ to CHF exacerbation +/- PNA possibly aspiration in setting of AMS d/t? intoxication. Ccb supratherapeutic INR c/b GIB, hgb stable also with shock poss hemorhagic +/- sepsis, also with oliguric acute on chronic renal failure. Pulm: Intubated d/t hypercarbic resp failure-CHF exacerbation+/- PNA -LTVV goal Plat <30 -Azithro and Zosyn for empiric coverage for poss PNA - f/u blood + urine cultures CV: Shock; CHF exacerbation -Vaspressor as needed for MAP>60 Heme/GI: GIB and hematuria in setting of supratherapeutic INR -Endoscopy when patient more stable -Hold coumadin -Monitor CBC and coags q6 -Cont vit K1mg daily for goal INR<2 -Cont Protonix drip -Monitor LFTs and ammonia RENAL - Received Kayexalate via NGT for hyperkalemia of 6 Check Urine studies and imaging of abd to r/o obstruction -Propofol drip for RASS -2-3 -CIWA protocol DVT proph: SCDs Visit type - Emergency Visit Emergency Visit: No - New Patient This patient is new to me today: Yes Date on this admission: 01/14/17 - Critical Care Critical Care patient: Yes Total Critical Care Time (in minutes): 45 Critical Care Statement: The care of this patient involved high complexity decision making to prevent further life threatening deterioration of the patient 's condition and/or to evaluate & treat vital organ system(s) failure or risk of failure.
--- NOTE | 2017-01-14 09:51 | CON.GI ---
Consult Consult Specialty:: GI Reason for Consultation:: GI bleed - History of Present Illness History of Present Illness: 86 year old male pmh HTN, CHF, A-fib on coumadin, aortic valve repair, pacemaker , GIB, CKD was sent from senior care hypotensive with reported melena and altered mental status. Patient is on hospital day #2. Per nurse, he was transferred to the ICU for respiratory failure possibly due to CHF or PNA and intubated/sedated. Patient was previously found to have a supratherapeutic INR and positive stool occult blood. Hemoglobin has been stable (9.1 at admission and 10 currently). Called senior care to obtain further history. Only able to obtain hx of alcohol use (60ml gin/QD). Unable to obtain information on previous GI history. PMH: hypertension, congestive heart faliure, atrial fibrillation, GI bleed, chronic kidney disease Past Surgical History: aortic valve repair, pacemaker placement Home Medications: Coumadin, sucralfate, simvistatin, KCl, pantoprazole, folate, FeSO4, enalapril Allergies: NKDA Social History: drinks 60mL gin every day with dinner (alcohol quant >90), every day smoker (10 cigs/day) according to medical record - History Source History Provided By: Medical Record, Caregiver Limitations to Obtaining History: Intubated - Past Medical History Cardio/Vascular: Yes: CHF, HTN Gastrointestinal: Yes: GI Bleed Renal/: Yes: Renal Failure - Alcohol/Substance Use Hx Alcohol Use: Yes (60mL gin daily) - Smoking History Smoking history: Current every day smoker Aproximately how many cigarettes per day: 10 - Social History Usual Living Arrangement: [facility] ([facility]) History of Recent Travel: No Home Medications - Allergies Allergies/Adverse Reactions: Allergies Allergy/AdvReac Type Severity Reaction Status Date / Time No Known Allergies Allergy Verified 01/13/17 18:29 - Home Medications Home Medications: Ambulatory Orders Enalapril Maleate [Vasotec -] 10 mg PO DAILY 01/13/17 Ferrous Sulfate 325 mg PO BID 01/13/17 Folic Acid 1 mg PO DAILY 01/13/17 Guaifenesin [Mucinex] 600 mg PO BID 01/13/17 Pantoprazole Sodium 40 mg PO DAILY 01/13/17 Potassium Chloride [K-Tab ER] 10 meq PO DAILY 01/13/17 Simvastatin 40 mg PO HS 01/13/17 Sucralfate [Carafate -] 1 gm PO AC 01/13/17 Warfarin Na [Coumadin] 5 mg PO DAILY 01/13/17 Family Disease History - Family Disease History Family History: Unable to Obtain Review of Systems Unable to obtain ROS, reason: Intubated, Sedated Physical Exam-GI Vital Signs: Vital Signs Temperature 100.2 F H 01/14/17 07:00 Pulse Rate 85 01/14/17 08:00 Respiratory Rate 14 01/14/17 08:00 Blood Pressure 132/78 01/14/17 08:00 O2 Sat by Pulse Oximetry (%) 99 01/14/17 01:30 Constitutional: Yes: Obese Eyes: Yes: Conjunctiva Clear HENT: Yes: Atraumatic, Normocephalic Neck: Yes: Supple, Trachea Midline Cardiovascular: Yes: Pulse Irregular, S1, S2 Respiratory: Yes: Intubated, Mechanically Ventilated, Rhonchi, Other (course breath sounds heard bilaterally) Gastrointestinal Inspection: No: Ascites, Scars ...Auscultate: Yes: Normoactive Bowel Sounds ...Palpate: Yes: Mass (5cm tender mass noted in the lower abdomen on the right, near midline, possibly bladder vs hernia), Soft, Tenderness (lower abdominal tenderness noted on the right). No: Firm/Rigid, Hepatomegaly, Splenomegaly ...Rectal Exam: Yes: Guaiac Positive (Dark black stool) Genitourinary: Yes: Concepcion Present, Hematuria Integumentary: Yes: WNL Neurological: No: Alert, Oriented Psychiatric: No: Alert, Oriented Labs: CBC, BMP 01/14/17 05:00 01/14/17 05:00 INR, PTT INR 2.02 (0.82-1.09) H 01/14/17 05:00 Imaging - Results Chest X-ray: Report Reviewed Problem List - Problems (1) GI bleed Code(s): K92.2 - GASTROINTESTINAL HEMORRHAGE, UNSPECIFIED Qualifiers: GI bleed type/associated pathology: melena Qualified Code(s): K92.1 - Melena (2) Acidosis Code(s): E87.2 - ACIDOSIS (3) Hematuria Code(s): R31.9 - HEMATURIA, UNSPECIFIED Qualifiers: Hematuria type: unspecified type Qualified Code(s): R31.9 - Hematuria, unspecified (4) Hypotension Code(s): I95.9 - HYPOTENSION, UNSPECIFIED Qualifiers: Hypotension type: unspecified hypotension type Qualified Code(s): I95.9 - Hypotension, unspecified Assessment/Plan 86 year old male pmh HTN, CHF, A-fib on coumadin, aortic valve repair, pacemaker , GIB, CKD, seen by GI for evaluation of GI bleed #GI Bleed: suspected melena in the setting of supratherapeutic INR was initially concerning for upper GI bleed. Patient is a heavy alcohol drinker, having more than 60mL per day of gin, and in addition to his previously reported GIB, increases his risk for bleeding from possible variceal bleed vs peptic ulcer vs esophageal tear (adam ebenezer vs boerrhave). Patient is hemodynamically stable, picture is less likely overt GI bleed not necessary for emergent endoscopy. Stabilize patient's labs first -pt given octreotide and vitamin k -hemoglobin stable at 10 after 2U PRBCs and 1U FFP -patient has a history of CHF and structural heart disease, please transfuse if Hgb < 8 -patient no longer hypotensive at 127/67 -careful with fluids considering CHF exacerbation, but monitor volume status and give NS as necessary -liver function tests normal -elevated lipase unconcerning -Considering upper GI endoscopy, stabilize patient first -CT w/o contrast to evaluate abdomen and pelvis
[2017-01-14] MEDS ORDERED: AZITHROMYCIN IVPB 250 ML IVPB SCH (10:00)
[2017-01-14] MEDS ORDERED: PIPERACILLIN/TAZOB 3.375 GM/50 ML PRE-DOCKED IVPB SCH ×2 (10:00)
[2017-01-14] MEDS ORDERED: CEFTRIAXONE 1 GM in DEXTROSE 5%-WATER - 100 ML IVPB SCH (10:00)
[2017-01-14] MEDS ORDERED: PHYTONADIONE 10 MG/1 ML AMP IVPB ONE (10:00)
--- NOTE | 2017-01-14 10:29 | HP ---
Admitting History and Physical - Primary Care Physician PCP: Roque Chandra - Admission Chief Complaint: sepsis History of Present Illness: 86 yrs old male sent from [facility] for altered mentation, bloody stools and hypotension. He was given fluid boluses in ER- placed on BIPAP but incubated later due to hypercapneic respiratory failure.He received FFP and PRBC as his INR was 6 and had GI bleeding. As per [place] records-- pt is alert and oriented, drinks gin every night, had h/o GI bleed but replaced back on coumadin as he was stable and he had chronic persistent AFib. Pt examined in ICU-- intubated and sedated History Source: Medical Record Limitations to Obtaining History: Intubated - Past Medical History Cardiovascular: Yes: AFIB, Aneurysm (h/o aortic aneurysm repair), Aortic Stenosis (s/p AVR), CHF, HTN Gastrointestinal: Yes: GI Bleed Renal/: Yes: Renal Failure - Advance Directives Advance Directives: Yes: MOLST - Smoking History Smoking history: Current every day smoker Aproximately how many cigarettes per day: 10 - Alcohol/Substance Use Hx Alcohol Use: Yes (60mL gin daily) - Social History History of Recent Travel: No Home Medications - Allergies Allergies/Adverse Reactions: Allergies Allergy/AdvReac Type Severity Reaction Status Date / Time No Known Allergies Allergy Verified 01/13/17 18:29 - Home Medications Home Medications: Ambulatory Orders Enalapril Maleate [Vasotec -] 10 mg PO DAILY 01/13/17 Ferrous Sulfate 325 mg PO BID 01/13/17 Folic Acid 1 mg PO DAILY 01/13/17 Guaifenesin [Mucinex] 600 mg PO BID 01/13/17 Pantoprazole Sodium 40 mg PO DAILY 01/13/17 Potassium Chloride [K-Tab ER] 10 meq PO DAILY 01/13/17 Simvastatin 40 mg PO HS 01/13/17 Sucralfate [Carafate -] 1 gm PO AC 01/13/17 Warfarin Na [Coumadin] 5 mg PO DAILY 01/13/17 Review of Systems Unable to obtain ROS, reason: intubated Physical Examination Vital Signs: Vital Signs Temperature 100.2 F H 01/14/17 07:00 Pulse Rate 93 H 01/14/17 10:03 Respiratory Rate 26 H 01/14/17 10:03 Blood Pressure 132/78 01/14/17 08:00 O2 Sat by Pulse Oximetry (%) 96 01/14/17 10:03 Constitutional: Yes: No Distress, Other (intubated) Cardiovascular: Yes: Pulse Irregular, Murmur Respiratory: Yes: Diminished Gastrointestinal: Yes: Normal Bowel Sounds, Soft, Palpable Mass (rt lowe quadrant, tender+), Tenderness (right lower quadrant and suprapubic tenderness) Edema: Yes Labs: CBC, BMP 01/14/17 05:00 01/14/17 05:00 Imaging - Results Chest X-ray: Image Reviewed (left lobe consolidation , effusion) EKG: Image Reviewed (Afib with RVR) Problem List - Problems (1) Acidosis Code(s): E87.2 - ACIDOSIS (2) GI bleed Code(s): K92.2 - GASTROINTESTINAL HEMORRHAGE, UNSPECIFIED Qualifiers: GI bleed type/associated pathology: melena Qualified Code(s): K92.1 - Melena (3) Hypotension Code(s): I95.9 - HYPOTENSION, UNSPECIFIED Qualifiers: Hypotension type: unspecified hypotension type Qualified Code(s): I95.9 - Hypotension, unspecified (4) Renal failure (ARF), acute on chronic Code(s): N17.9 - ACUTE KIDNEY FAILURE, UNSPECIFIED N18.9 - CHRONIC KIDNEY DISEASE, UNSPECIFIED (5) Respiratory acidosis Code(s): E87.2 - ACIDOSIS (6) Respiratory failure Code(s): J96.90 - RESPIRATORY FAILURE, UNSP, UNSP W HYPOXIA OR HYPERCAPNIA Assessment/Plan PLAN IV antibiotics Spoke with ID and Renal will give fluid boluses check CT head.,chest , abdomen and pelvis Echo done ventilator support protonix drip received FFP and PRBC Kayexalate for potassium of 6 Pt has high serum alcohol, monitor for DT on propofol SCD for DVT prophylaxis, INR therapeutic Time spent 40 min coordinating care
[2017-01-14] MEDS ORDERED: SODIUM POLYSTYRENE SULFONATE 15 GM/60 ML BOTTLE PO ONE (10:30)
[2017-01-14 10:51] LABS: MCH 30.9 pg (25.7-33.7); MCHC 33.7 g/dl (32.0-35.9); MEAN CELL VOLUME 91.7 fl (80-96); MEAN PLT VOLUME 7.4 fl (7.5-11.1); PLATELET COUNT 210 K/MM3 (134-434); RDW 15.2 % (11.9-15.9); WHITE BLOOD COUNT 5.6 K/mm3 (4.0-10.0)
[2017-01-14] MEDS ORDERED: SODIUM CHLORIDE 1,000 ML IV STA (10:59)
--- NOTE | 2017-01-14 11:29 | CON.NEP ---
Consult Consult Specialty:: Nephrology Referred by:: Dr. Dory Saldaña Reason for Consultation:: JOE and Hyperkalemia - History of Present Illness Chief Complaint: AMS/Melena/GI bleed History of Present Illness: This is a 86 year old gentleman with PMhx of Afib on Coumadin, CHF, Hypertension , AAA repair, AVR, GI bleed who presented from [facility] with hypotension and AMS and found to have Melena/GI bleed with JOE and hyperkalmeia. Pt is intubated and sedated and not able to provide history. Sue placed in the hospital. Pt anuric overnight and has gross blood in sue catheter. No melena overnight. On pressers and propofol. Pt was on ACEi and Lasix as a outpatient. - History Source History Provided By: Patient Limitations to Obtaining History: No Limitations - Past Medical History Cardio/Vascular: Yes: CHF, HTN Gastrointestinal: Yes: GI Bleed Renal/: Yes: Renal Failure - Alcohol/Substance Use Hx Alcohol Use: Yes (60mL gin daily) - Smoking History Smoking history: Current every day smoker Aproximately how many cigarettes per day: 10 - Social History Usual Living Arrangement: Penitentiary ([facility]) History of Recent Travel: No Home Medications - Allergies Allergies/Adverse Reactions: Allergies Allergy/AdvReac Type Severity Reaction Status Date / Time No Known Allergies Allergy Verified 01/13/17 18:29 - Home Medications Home Medications: Ambulatory Orders Enalapril Maleate [Vasotec -] 10 mg PO DAILY 01/13/17 Ferrous Sulfate 325 mg PO BID 01/13/17 Folic Acid 1 mg PO DAILY 01/13/17 Guaifenesin [Mucinex] 600 mg PO BID 01/13/17 Pantoprazole Sodium 40 mg PO DAILY 01/13/17 Potassium Chloride [K-Tab ER] 10 meq PO DAILY 01/13/17 Simvastatin 40 mg PO HS 01/13/17 Sucralfate [Carafate -] 1 gm PO AC 01/13/17 Warfarin Na [Coumadin] 5 mg PO DAILY 01/13/17 Family Disease History - Family Disease History Family History: Unable to Obtain Review of Systems Unable to obtain ROS, reason: clinical status Nephrology Consult - Height Height: 6 ft - Weight Weight: 239 lb 14.4 oz - BMI Body Mass Index (BMI): 32.5 - Lab Results CBC,BMP: CBC, BMP 01/14/17 10:34 01/14/17 05:00 Anion Gap: Anion Gap Anion Gap 14 (8-16) 01/14/17 05:00 - Imaging Chest X-ray: Report Reviewed - Physical Examination Vital Signs: Vital Signs Temperature 100.5 F H 01/14/17 10:00 Pulse Rate 93 H 01/14/17 10:03 Respiratory Rate 26 H 01/14/17 10:03 Blood Pressure 139/82 01/14/17 10:00 O2 Sat by Pulse Oximetry (%) 96 01/14/17 10:03 Constitutional: Yes: No Distress, Calm, Other (intubated) HENT: Yes: Atraumatic Neck: Yes: Supple Cardiovascular: Yes: Regular Rate and Rhythm Respiratory: Yes: Regular, CTA Bilaterally Gastrointestinal: Yes: Normal Bowel Sounds, Soft, Abdomen, Obese, Tenderness Renal/: Yes: Anuria, Sue Present, Hematuria. No: Bladder Distention Edema: No Neurological: Yes: Alert, Oriented Problem List - Problems (1) Acidosis Code(s): E87.2 - ACIDOSIS (2) GI bleed Code(s): K92.2 - GASTROINTESTINAL HEMORRHAGE, UNSPECIFIED Qualifiers: GI bleed type/associated pathology: melena Qualified Code(s): K92.1 - Melena (3) Hematuria Code(s): R31.9 - HEMATURIA, UNSPECIFIED Qualifiers: Hematuria type: unspecified type Qualified Code(s): R31.9 - Hematuria, unspecified (4) Hypotension Code(s): I95.9 - HYPOTENSION, UNSPECIFIED Qualifiers: Hypotension type: unspecified hypotension type Qualified Code(s): I95.9 - Hypotension, unspecified (5) Renal failure (ARF), acute on chronic Code(s): N17.9 - ACUTE KIDNEY FAILURE, UNSPECIFIED N18.9 - CHRONIC KIDNEY DISEASE, UNSPECIFIED (6) Respiratory failure Code(s): J96.90 - RESPIRATORY FAILURE, UNSP, UNSP W HYPOXIA OR HYPERCAPNIA Assessment/Plan 86 year old gentleman with PMhx of Afib on Coumadin, CHF, Hypertension, AAA repair, AVR, GI bleed who presented from [facility] with hypotension and AMS and found to have Melena/GI bleed with JOE and hyperkalmeia. #Acute Anuric Renal Failure with hx of CKD (? baseline Cr) with Hyperkalemia Differential includes ATN, Volume depletion, obstruction vs progressive CKD Check Urine studies and imaging of abd to r/o obstruction Give NS 1L bolous Keep MAP >65-70 Dose all meds for Cr Cl less then 10 Give Kayexalate via NGT check EKG r/o changes due to hyperkalemia No acute indication for [employer] will need to obtain baseline renal function from PMD/NH #Anion gap metabolic acidosis from renal failure Lactic acid improved no indication for bicarb at this time trend BID #Sepsis/Hypvolemic shock Transfuse as needed f/u cultures on Zosyn and Azithromycin #Resp Failure CT chest to r/o loculated effusion vs. other etiology of left sided lung pathology Thank you Will follow Ludwig Storm DO Current Medications Albuterol/Ipratropium (Duoneb -) 1 amp NEB QIDR JESSICA Last Admin: 01/14/17 06:30 Dose: 1 amp Octreotide Acetate 1,200 mcg/ (Dextrose) 500 mls @ 20.83 mls/hr IVPB ASDIR JESSICA PRN Reason: 50 MCG/HR Last Admin: 01/13/17 21:11 Dose: 20.83 mls/hr Pantoprazole Sodium 80 mg/ (Sodium Chloride) 100 mls @ 10 mls/hr IVPB Q10H JESSICA PRN Reason: 8 MG/HR Last Admin: 01/14/17 06:37 Dose: 10 mls/hr Phenylephrine HCl 20,000 mcg/ (Sodium Chloride) 250 mls @ 75 mls/hr IVPB ASDIR JESSICA; 100 MCG/MIN PRN Reason: Protocol Last Titration: 01/14/17 06:37 Dose: 15 mcg/min Propofol (Diprivan -) 100 mls @ 3.265 mls/hr IVPB TITR JESSICA; 5 MCG/KG/MIN PRN Reason: Protocol Last Admin: 01/14/17 09:02 Dose: 32.645 mls/hr Azithromycin (Zithromax 500mg Ivpb (Pre-Docked)) 250 mls @ 250 mls/hr IVPB DAILY JESSICA Last Admin: 01/14/17 02:44 Dose: 250 mls/hr Sodium Chloride (Normal Saline -) 1,000 mls @ 83 mls/hr IV ASDIR JESSICA Sodium Chloride (Normal Saline -) 1,000 mls @ 1,000 mls/hr IV ASDIR STA Stop: 01/14/17 11:58 Piperacillin Sod/Tazobactam Sod (Zosyn 3.375gm Ivpb (Pre-Docked)) 3.375 gm IVPB BID JESSICA PRN Reason: Protocol
--- NOTE | 2017-01-14 11:53 | EKG ---
Test Reason : Blood Pressure : / mmHG Vent. Rate : 108 BPM Atrial Rate : 094 BPM P-R Int : 000 ms QRS Dur : 170 ms QT Int : 350 ms P-R-T Axes : 000 092 -46 degrees QTc Int : 469 ms ATRIAL FIBRILLATION WITH RAPID VENTRICULAR RESPONSE WITH PREMATURE VENTRICULAR OR ABERRANTLY CONDUCTED COMPLEXES RIGHT BUNDLE BRANCH BLOCK T WAVE ABNORMALITY, CONSIDER INFERIOR ISCHEMIA ABNORMAL ECG NO PREVIOUS ECGS AVAILABLE CLINICAL CORRELATION IS RECOMMENDED AND REPEAT EKG INDICATED Confirmed by SHRUTI EDWARD MD ([id number]) on 01/14/2017 11:53:33 AM Referred By: Confirmed By:SHRUTI EDWARD MD
[2017-01-14] MEDS: SODIUM CHLORIDE 1,000 ML IV SCH (11:58)
--- NOTE | 2017-01-14 12:01 | EKG ---
Test Reason : Blood Pressure : / mmHG Vent. Rate : 092 BPM Atrial Rate : 111 BPM P-R Int : 000 ms QRS Dur : 160 ms QT Int : 426 ms P-R-T Axes : 000 106 026 degrees QTc Int : 526 ms ATRIAL FIBRILLATION WITH CONTROLLED VENTRICULAR RESPONSE RIGHT BUNDLE BRANCH BLOCK ABNORMAL ECG WHEN COMPARED WITH ECG OF 13-JAN-2017 18:32, T WAVE INVERSION NO LONGER EVIDENT IN INFERIOR LEADS QT HAS LENGTHENED ABSENCE OF VENTRICULAR BEATS Confirmed by SHRUTI EDWARD MD ([id number]) on 01/14/2017 12:01:17 PM Referred By: Cristina SOLARES Confirmed By:SHRUTI EDWARD MD
--- NOTE | 2017-01-14 12:14 | PN ---
Progress Note (short form) - Note Progress Note: ID Consult dictated Respiratory failure Exacerbation COPD Septic v hemorrhagic shock L pneumonia asp v HCAP GI bleed Gross hematuria Coagulopathy CKD/ Azotemia S/P AVR, PPM Toxic metabolic encephalopathy v. ETOH intoxication Await sepsis workup Continue ventilatory/ hemodynamic support Empiric zosyn/ vancomycin adjusted for renal failure Prognosis guarded Critical care time 40min
--- NOTE | 2017-01-14 12:42 | PN ---
Teaching Attending Note Name of Resident: Jagjit Sifuentes ATTENDING PHYSICIAN STATEMENT I saw and evaluated the patient. I reviewed the resident's note and discussed the case with the resident. I agree with the resident's findings and plan as documented. SUBJECTIVE: 86M admitted from [place] for evaluation of confusion. noted to he hypotensive ? of melena. had an elevated blood alcohol level and drinks alcohol on a daily basis per the [place] Received 2 units of PRBC. No active melena reported OBJECTIVE: On exam: OGT in place: lavaged with 70cc water. bilious non-bloody fluid aspirated Anicteric Hrt RRR, + 2/6 systolic murmur with audible artificial valve click Lungs: decreased BS at bases b/l Abdomen: soft, + normoactive BS, non-distended, no tympany. some grimacing upon palpation in the suprapubic region SHAAN: dark brown / ? iron stained stool Sue in blood with blood in sue bag Labs: hgb 9.4 ASSESSMENT Anemia, noted guaiac + with question of melena vs. iron stained stool. Alcohol intoxication Fevers It does not appear as though active GI bleeding is the primary cause of current clinical condition PLAN: D/C protonix drip. Continue BID Protonix 40mg for now CT scan of the abdomen and pelvis has been ordered to evaluate suprapubic tenderness Monitor H/H, hemodynamics and for signs of active GI bleeding I called Fr. Simmons's niece Alyse. She had limited information regarding Fr. Simmons's previous medical history but she did know that he was noted to be anemic, has required blood transfusions (the last times possibly in may and july) and may have had bleeding episodes and cauterization. She directed me to Brother Hai Wick to obtain more information. I called and left a message. When medically optimized, upper endoscopy could be undertaken.
[2017-01-14] MEDS ORDERED: MIDAZOLAM HCL 5 MG/1 ML Single Dose Vial IVPUSH ONE (12:46)
[2017-01-14] MEDS ORDERED: VANCOMYCIN 1,000 MG in DEXTROSE 5%-WATER - 250 ML IVPB ONE (13:00)
--- NOTE | 2017-01-14 13:59 | CONS ---
INFECTIOUS DISEASE CONSULTATION DATE OF CONSULTATION: DATE OF DICTATION: 01/14/2017 HISTORY OF PRESENT ILLNESS: The patient is an 86-year-old male evaluated for sepsis. History is obtained from the chart as he cannot give a history. He is presently intubated in the intensive care unit. He is a custodial resident. According to the notes, he was noted to have altered mental status and low blood pressure. EMS was summoned. He was noted to be hypotensive. His course was complicated by melena. He was evaluated in the emergency room where the patient was tachycardic, hypotensive, and short of breath. He was noted to have an INR of 6.4. He was placed on BiPAP. His clinical course was subsequently complicated by respiratory failure requiring intubation. Chest x-ray shows almost-complete opacification of the left hemithorax. The patient was treated with fresh frozen plasma and blood products. He is presently intubated on mechanical ventilation in the intensive care unit. He is hypotensive, on pressors. Concepcion catheter is in place and is draining gross hematuria. His unit course notable for low-grade fever with a normal white blood cell count. Patient was noted on admission to have an alcohol level of 96. PAST MEDICAL HISTORY: Positive for coronary artery disease, valvular heart disease status post aortic valve replacement, COPD, atrial fibrillation, congestive heart failure, GI bleed, hypertension, chronic kidney disease. PAST SURGICAL HISTORY: Status post abdominal aortic aneurysm repair, aortic valve replacement, and permanent pacemaker. ALLERGIES: No known allergies. MEDICATIONS: Vasotec, iron, folic acid, Protonix, simvastatin, Carafate, Coumadin. SOCIAL HISTORY: He is a custodial resident. Positive history of tobacco and alcohol. According to the notes, he consumes alcohol on a daily basis. SYSTEMS REVIEW: Neurologic: Positive for altered mentation. No loss of consciousness, seizure activity, or focal weakness. Cardiac: Negative chest pain or palpitations. Respiratory: As per HPI. Gastrointestinal: No vomiting. Positive melena. Genitourinary: Positive for gross hematuria. LABORATORY DATA: White blood cell count 5.6, hematocrit 28.0, platelet count 210. BUN 77, creatinine 3.9. Urinalysis: Red cells 1387, white cells 27. Liver enzymes normal. Cultures are pending. PHYSICAL EXAMINATION: General: The patient is sedated, on the ventilator. Vital Signs: His temperature is 100.5; blood pressure 139/82; pulse 102, irregular; respirations 14 per minute. HEENT: Sclerae anicteric. Patient is orally intubated. Heart: Sounds irregular. S1, S2, with a positive murmur with a metallic click. Lungs: Air entry bilaterally. Mechanically ventilated. Abdomen: Obese, soft, and no tenderness elicited. No mass, rebound, or rigidity. Extremities: Positive for edema and chronic venous stasis dermatitis Genitourinary: Concepcion catheter in place. Gross hematuria noted. IMPRESSION: 1. Acute respiratory failure. 2. Exacerbation of chronic obstructive pulmonary disease. 3. Septic versus hemorrhagic shock. 4. Left-sided pneumonia, aspiration versus healthcare associated. 5. Gastrointestinal bleed. 6. Gross hematuria. 7. Coagulopathy. 8. Chronic kidney disease/azotemia. 9. Status post aortic valve replacement and permanent pacemaker. 10. Toxic metabolic encephalopathy versus acute alcohol intoxication. Await sepsis workup. Continue ventilatory and hemodynamic support. Empiric antibiotic coverage with vancomycin and Zosyn adjusted for renal failure. Prognosis is guarded. CRITICAL CARE TIME: Forty minutes. Thank you for the kind referral. MARGOT DAWN M.D. [id number]
[2017-01-14 15:51] LABS: ANION GAP 15 (8-16); CALCIUM 7.9 mg/dL (8.5-10.1); CO2 19 mmol/L (21-32); CREATININE 3.5 mg/dL (0.7-1.3); GLUCOSE,RANDOM 206 mg/dL (74-106)
[2017-01-14 18:09] LABS: MCH 31.5 pg (25.7-33.7); MCHC 34.7 g/dl (32.0-35.9); MEAN CELL VOLUME 90.6 fl (80-96); MEAN PLT VOLUME 7.5 fl (7.5-11.1); PLATELET COUNT 210 K/MM3 (134-434); RDW 15.4 % (11.9-15.9); WHITE BLOOD COUNT 5.4 K/mm3 (4.0-10.0)
[2017-01-14] MEDS: PIPERACILLIN/TAZOB 2.25 GM 50 ML IVPB SCH (18:55)
[2017-01-14 20:10] LABS: PLATELET ESTIMATE ADEQUATE (NORMAL)
[2017-01-14 20:11] LABS: REACTIVE LYMPHOCYTES 1 % (0-80); TOTAL CELLS COUNTED 100
[2017-01-14] MEDS ORDERED: PANTOPRAZOLE 40 MG TABLET (FP) PO SCH (22:00)
[2017-01-14] MEDS: PANTOPRAZOLE SODIUM 40 MG in SODIUM CHLORIDE 100 ML IVPB SCH (23:50)
[2017-01-15] MEDS: ALBUTEROL SO4 2.5/IPRATROPIUM 0.5 INH SOL 3 ML VIAL.NEB. NEB SCH ×4 (00:03→18:00)
[2017-01-15] MEDS: PHENYLEPHRINE HCL 20,000 MCG in SODIUM CHLORIDE 248 ML IVPB SCH (00:35)
[2017-01-15] MEDS: PIPERACILLIN/TAZOB 2.25 GM 50 ML IVPB SCH ×3 (02:22→21:54)
[2017-01-15] MEDS: PROPOFOL 100 ML IVPB SCH ×3 (02:22→08:55)
[2017-01-15 06:15] LABS: MCH 30.6 pg (25.7-33.7); MCHC 34.2 g/dl (32.0-35.9); MEAN CELL VOLUME 89.6 fl (80-96); MEAN PLT VOLUME 7.3 fl (7.5-11.1); PLATELET COUNT 238 K/MM3 (134-434); RDW 15.9 % (11.9-15.9); WHITE BLOOD COUNT 7.8 K/mm3 (4.0-10.0)
[2017-01-15 06:26] LABS: INR 1.31 (0.82-1.09); PROTHROMBIN TIME (PATIENT) 14.5 SEC (9.98-11.88)
[2017-01-15 06:41] LABS: ALBUMIN 2.5 g/dl (3.4-5.0); ANION GAP 11 (8-16); CALCIUM 7.9 mg/dL (8.5-10.1); CO2 23 mmol/L (21-32); GLUCOSE,RANDOM 176 mg/dL (74-106); MAGNESIUM 1.9 mg/dL (1.8-2.4)
[2017-01-15 06:46] LABS: ALK PHOS 56 U/L (45-117); BILIRUBIN,TOTAL 0.5 mg/dL (0.2-1.0); CREATININE 2.8 mg/dL (0.7-1.3); PHOSPHOROUS 2.5 mg/dL (2.5-4.9); SGOT/AST 11 U/L (15-37); SGPT/ALT 12 U/L (12-78); TOT PROT 5.3 g/dl (6.4-8.2)
[2017-01-15 07:32] LABS: TOTAL CELLS COUNTED 100
[2017-01-15] MEDS ORDERED: PT OWN MED DRAWER 7, Y5N ONE (08:52)
[2017-01-15] MEDS: SODIUM CHLORIDE 1,000 ML IV SCH ×2 (09:05→14:00)
[2017-01-15] MEDS: AZITHROMYCIN IVPB 250 ML IVPB SCH (09:59)
[2017-01-15] MEDS: PANTOPRAZOLE SODIUM 40 MG in SODIUM CHLORIDE 100 ML IVPB SCH (09:59)
[2017-01-15 10:24] LABS: MCH 30.7 pg (25.7-33.7); MCHC 34.1 g/dl (32.0-35.9); MEAN CELL VOLUME 89.9 fl (80-96); MEAN PLT VOLUME 6.7 fl (7.5-11.1); PLATELET COUNT 207 K/MM3 (134-434); RDW 15.9 % (11.9-15.9); WHITE BLOOD COUNT 7.3 K/mm3 (4.0-10.0)
--- NOTE | 2017-01-15 10:29 | PN ---
Progress Note, Physician History of Present Illness: Sedated on ventilator Off pressors Afebrile WBC WNL BC prelim no growth CT shows L atelectasis/ consolidation - Current Medication List Current Medications: Active Medications Albuterol/Ipratropium (Duoneb -) 1 amp NEB QIDR JESSICA Last Admin: 01/15/17 06:40 Dose: 1 amp Phenylephrine HCl 20,000 mcg/ (Sodium Chloride) 250 mls @ 75 mls/hr IVPB ASDIR JESSICA; 100 MCG/MIN PRN Reason: Protocol Last Admin: 01/15/17 00:35 Dose: Not Given Propofol (Diprivan -) 100 mls @ 3.265 mls/hr IVPB TITR JESSICA; 5 MCG/KG/MIN PRN Reason: Protocol Last Admin: 01/15/17 08:55 Dose: 35.91 mls/hr Azithromycin (Zithromax 500mg Ivpb (Pre-Docked)) 250 mls @ 250 mls/hr IVPB DAILY JESSICA Last Admin: 01/15/17 09:59 Dose: 250 mls/hr Sodium Chloride (Normal Saline -) 1,000 mls @ 83 mls/hr IV ASDIR JESSICA Last Admin: 01/15/17 09:05 Dose: 83 mls/hr Piperacillin Sod/Tazobactam Sod (Zosyn 2.25gm Ivpb (Pre-Docked)) 50 mls @ 100 mls/hr IVPB Q8H-IV JESSICA PRN Reason: Protocol Last Admin: 01/15/17 09:01 Dose: 100 mls/hr Pantoprazole Sodium 40 mg/ (Sodium Chloride) 100 mls @ 200 mls/hr IVPB BID JESSICA Last Admin: 01/15/17 09:59 Dose: 200 mls/hr - Objective Vital Signs: Vital Signs Temperature 97.9 F 01/15/17 10:00 Pulse Rate 79 01/15/17 10:19 Respiratory Rate 26 H 01/15/17 10:17 Blood Pressure 112/51 01/15/17 10:00 O2 Sat by Pulse Oximetry (%) 95 01/15/17 10:19 Constitutional: Yes: No Distress Eyes: Yes: Conjunctiva Clear Cardiovascular: Yes: Regular Rate and Rhythm, S1, S2 Respiratory: Yes: Mechanically Ventilated Gastrointestinal: Yes: Normal Bowel Sounds, Soft, Abdomen, Obese. No: Tenderness Genitourinary: Yes: Concepcion Present, Other (dark tea- colored urine) Edema: LLE: 1+, RLE: 1+ Labs: CBC, BMP 01/15/17 10:18 01/15/17 05:00 INR, PTT INR 1.31 (0.82-1.09) H D 01/15/17 05:00 Assessment/Plan Respiratory failure/ COPD exacerbation Atelectasis, possible pneumonia asp v. HCAP Septic v hemorrhagic shock-improved GI bleed CKD/ azotemia-improved S/P AVR, PPM Coagulopathy- resolved Continue empiric zosyn pending cultures Ventilatory/ hemodynamic support
--- NOTE | 2017-01-15 11:13 | PN ---
Progress Note, Physician Chief Complaint: awake , on vent sue-- bloody urine - Current Medication List Current Medications: Active Medications Albuterol/Ipratropium (Duoneb -) 1 amp NEB QIDR JESSICA Last Admin: 01/15/17 06:40 Dose: 1 amp Phenylephrine HCl 20,000 mcg/ (Sodium Chloride) 250 mls @ 75 mls/hr IVPB ASDIR JESSICA; 100 MCG/MIN PRN Reason: Protocol Last Admin: 01/15/17 00:35 Dose: Not Given Propofol (Diprivan -) 100 mls @ 3.265 mls/hr IVPB TITR JESSICA; 5 MCG/KG/MIN PRN Reason: Protocol Last Admin: 01/15/17 08:55 Dose: 35.91 mls/hr Azithromycin (Zithromax 500mg Ivpb (Pre-Docked)) 250 mls @ 250 mls/hr IVPB DAILY [facility] Last Admin: 01/15/17 09:59 Dose: 250 mls/hr Sodium Chloride (Normal Saline -) 1,000 mls @ 83 mls/hr IV ASDIR JESSICA Last Admin: 01/15/17 09:05 Dose: 83 mls/hr Piperacillin Sod/Tazobactam Sod (Zosyn 2.25gm Ivpb (Pre-Docked)) 50 mls @ 100 mls/hr IVPB Q8H-IV JESSICA PRN Reason: Protocol Last Admin: 01/15/17 09:01 Dose: 100 mls/hr Pantoprazole Sodium 40 mg/ (Sodium Chloride) 100 mls @ 200 mls/hr IVPB BID JESSICA Last Admin: 01/15/17 09:59 Dose: 200 mls/hr - Objective Vital Signs: Vital Signs Temperature 97.9 F 01/15/17 10:00 Pulse Rate 79 01/15/17 10:19 Respiratory Rate 26 H 01/15/17 10:17 Blood Pressure 112/51 01/15/17 10:00 O2 Sat by Pulse Oximetry (%) 99 01/15/17 11:02 Constitutional: Yes: No Distress, Other (intubated) Cardiovascular: Yes: Regular Rate and Rhythm Respiratory: Yes: Diminished Gastrointestinal: Yes: Normal Bowel Sounds, Soft. No: Distention, Tenderness Edema: No Labs: CBC, BMP 01/15/17 10:18 01/15/17 05:00 INR, PTT INR 1.31 (0.82-1.09) H D 01/15/17 05:00 Problem List - Problems (1) Acidosis Code(s): E87.2 - ACIDOSIS (2) GI bleed Code(s): K92.2 - GASTROINTESTINAL HEMORRHAGE, UNSPECIFIED Qualifiers: GI bleed type/associated pathology: melena Qualified Code(s): K92.1 - Melena (3) Hypotension Code(s): I95.9 - HYPOTENSION, UNSPECIFIED Qualifiers: Hypotension type: unspecified hypotension type Qualified Code(s): I95.9 - Hypotension, unspecified (4) Renal failure (ARF), acute on chronic Code(s): N17.9 - ACUTE KIDNEY FAILURE, UNSPECIFIED N18.9 - CHRONIC KIDNEY DISEASE, UNSPECIFIED (5) Respiratory acidosis Code(s): E87.2 - ACIDOSIS (6) Respiratory failure Code(s): J96.90 - RESPIRATORY FAILURE, UNSP, UNSP W HYPOXIA OR HYPERCAPNIA Assessment/Plan PLAN Had sue flushed and obtained bloody urine with clots-- renal function now improving IV antibiotics renal function better CT head.,chest , abdomen and pelvis-- noted Echo done-- noted ?loculated pericardial effusion , hypokinetic posterolateral wall and inferior wall ventilator support protonix drip INR low SCD for DVT prophylaxis
--- NOTE | 2017-01-15 12:05 | PN ---
GI Progress Note Subjective: No acute events reported by Fr. Simmons's nurse No melena Afebrile and now off pressors Being evaluated for vent weaning - Objective Vital Signs: Vital Signs Temperature 97.9 F 01/15/17 10:00 Pulse Rate 79 01/15/17 10:19 Respiratory Rate 26 H 01/15/17 10:17 Blood Pressure 112/51 01/15/17 10:00 O2 Sat by Pulse Oximetry (%) 99 01/15/17 11:02 Constitutional: Calm Eyes: No: Sclera Icterus Cardiovascular: Yes: Tachycardia, Pulse Irregular Respiratory: Yes: Diminished (at bases bilaterally with poor insp. effort) Gastrointestinal Inspection: No: Scars ...Auscultate: Yes: Normoactive Bowel Sounds ...Palpate: No: Hepatomegaly, Splenomegaly, Tenderness (No grimacing upon palpation) ...Percussion: No: Tympanitic Edema: Yes (trace LE edema ) Edema: LLE: Trace (chronic stasis changes), RLE: Trace (chronic stasis changes) Neurological: Yes: Other (Awake, intubated on vent) Labs: CBC, BMP 01/15/17 10:18 01/15/17 05:00 INR, PTT INR 1.31 (0.82-1.09) H D 01/15/17 05:00 Problem List - Problems (1) Anemia Assessment/Plan: No overt bleeding with bilious NGT aspirate Unclear what Fr. Simmons's baseline H/H is however his niece does allude to him having an anemia Called Brother Hai Wick yesterday and left message to have him call me back re: previous history of anemia / GI bleeding. Awaiting call back Continue daily PPI for now. Monitor magnesium levels while patient on PPI If A/C needed given a.fib / mechanical valve, then would anticoagulate with monitoring h/h and for overt bleeding Code(s): D64.9 - ANEMIA, UNSPECIFIED
--- NOTE | 2017-01-15 12:15 | PN ---
Progress Note (short form) - Note Progress Note: Renal follow up for JOE Pt seen and examined in the ICU awake and alert on Vent, off sedation good urine output, urine is dark/bloody no fevers, BP stable overnight Vital Signs Temperature 97.9 F 01/15/17 10:00 Pulse Rate 79 01/15/17 10:19 Respiratory Rate 26 H 01/15/17 10:17 Blood Pressure 112/51 01/15/17 10:00 O2 Sat by Pulse Oximetry (%) 99 01/15/17 11:02 Intake & Output 01/12/17 01/13/17 01/14/17 01/15/17 23:59 23:59 23:59 23:59 Intake Total 3273.5 1616 Output Total 10 1850 800 Balance -10 1423.5 816 Weight 239 lb 8 oz 239 lb 14.4 oz 255 lb 9.6 oz Gen: NAD, awake and alert ET Tbe in place CVS: RRR, No M/R Lungs: Dec BS left lung, no rales Abd: soft NT/ND Ext: No edema, clubbing or cyanosis CBC, BMP 01/15/17 10:18 01/15/17 05:00 Laboratory Tests 01/14/17 01/14/17 01/14/17 20:15 20:15 20:15 Calcium Phosphorus Magnesium Albumin U Random Total Protein Ur Random Sodium 62 Ur Random Urea Nitrogn 257 Urine Creatinine 43.3 01/14/17 01/15/17 20:15 05:00 Calcium 7.9 L Phosphorus 2.5 Magnesium 1.9 Albumin 2.5 L U Random Total Protein 247 H Ur Random Sodium Ur Random Urea Nitrogn Urine Creatinine Current Medications Albuterol/Ipratropium (Duoneb -) 1 amp NEB QIDR JESSICA Last Admin: 01/15/17 11:37 Dose: 1 amp Propofol (Diprivan -) 100 mls @ 3.265 mls/hr IVPB TITR JESSICA; 5 MCG/KG/MIN PRN Reason: Protocol Last Admin: 01/15/17 08:55 Dose: 35.91 mls/hr Azithromycin (Zithromax 500mg Ivpb (Pre-Docked)) 250 mls @ 250 mls/hr IVPB DAILY JESSICA Last Admin: 01/15/17 09:59 Dose: 250 mls/hr Piperacillin Sod/Tazobactam Sod (Zosyn 2.25gm Ivpb (Pre-Docked)) 50 mls @ 100 mls/hr IVPB Q8H-IV JESSICA PRN Reason: Protocol Last Admin: 01/15/17 09:01 Dose: 100 mls/hr Sodium Chloride (Normal Saline -) 1,000 mls @ 42 mls/hr IV ASDIR JESSICA Pantoprazole Sodium 40 mg/ (Sodium Chloride) 100 mls @ 200 mls/hr IVPB DAILY JESSICA A/P 86 year old gentleman with PMhx of Afib on Coumadin, CHF, Hypertension, AAA repair, AVR, GI bleed who presented from [facility] with hypotension and AMS and found to have Melena/GI bleed with JOE and hyperkalmeia. #Acute Anuric Renal Failure with hx of CKD (? baseline Cr) with Hyperkalemia Etiology of JOE appears to be ATN FeNa was 4.5% indicating tubular damage Renal function improving with IVF and maintenance of BP would continue present IVF Pt is non-oliguric still awaiting outpatient labs off ACEi Keep MAP > 65 #Anion gap metabolic acidosis from renal failure improved now #Sepsis/Hypvolemic shock Continue management as per ICU #Resp Failure Continue Vent support possible extubation today pulmonary follow up Thank you Will follow Ludwig Storm DO Problem List - Problems (1) Acidosis Code(s): E87.2 - ACIDOSIS (2) GI bleed Code(s): K92.2 - GASTROINTESTINAL HEMORRHAGE, UNSPECIFIED Qualifiers: GI bleed type/associated pathology: melena Qualified Code(s): K92.1 - Melena (3) Hematuria Code(s): R31.9 - HEMATURIA, UNSPECIFIED Qualifiers: Hematuria type: unspecified type Qualified Code(s): R31.9 - Hematuria, unspecified (4) Hypotension Code(s): I95.9 - HYPOTENSION, UNSPECIFIED Qualifiers: Hypotension type: unspecified hypotension type Qualified Code(s): I95.9 - Hypotension, unspecified (5) Renal failure (ARF), acute on chronic Code(s): N17.9 - ACUTE KIDNEY FAILURE, UNSPECIFIED N18.9 - CHRONIC KIDNEY DISEASE, UNSPECIFIED (6) Respiratory failure Code(s): J96.90 - RESPIRATORY FAILURE, UNSP, UNSP W HYPOXIA OR HYPERCAPNIA
--- NOTE | 2017-01-15 12:26 | PN ---
Teaching Attending Note Name of Resident: Martha Calix ATTENDING PHYSICIAN STATEMENT I saw and evaluated the patient. I reviewed the resident's note and discussed the case with the resident. I agree with the resident's findings and plan as documented. SUBJECTIVE: Pt seen and examined in the ICU. Remains intubated, sedated. Off pressors. OBJECTIVE: Last Vital Signs Temp Pulse Resp BP Pulse Ox 97.9 F 79 26 H 112/51 99 01/15/17 10:00 01/15/17 10:19 01/15/17 10:17 01/15/17 10:00 01/15/17 11:02 Intake & Output 01/12/17 01/13/17 01/14/17 01/15/17 23:59 23:59 23:59 23:59 Intake Total 3273.5 1616 Output Total 10 1850 800 Balance -10 1423.5 816 Weight 239 lb 8 oz 239 lb 14.4 oz 255 lb 9.6 oz Gen: intubated, sedated Heart: RRR Lung: scattered rhonchi Abd: soft, nontender Ext: no edema CBC, BMP 01/15/17 10:18 01/15/17 05:00 Active Medications Albuterol/Ipratropium (Duoneb -) 1 amp NEB QIDR JESSICA Last Admin: 01/15/17 11:37 Dose: 1 amp Propofol (Diprivan -) 100 mls @ 3.265 mls/hr IVPB TITR JESSICA; 5 MCG/KG/MIN PRN Reason: Protocol Last Admin: 01/15/17 08:55 Dose: 35.91 mls/hr Azithromycin (Zithromax 500mg Ivpb (Pre-Docked)) 250 mls @ 250 mls/hr IVPB DAILY JESSICA Last Admin: 01/15/17 09:59 Dose: 250 mls/hr Piperacillin Sod/Tazobactam Sod (Zosyn 2.25gm Ivpb (Pre-Docked)) 50 mls @ 100 mls/hr IVPB Q8H-IV JESSICA PRN Reason: Protocol Last Admin: 01/15/17 09:01 Dose: 100 mls/hr Sodium Chloride (Normal Saline -) 1,000 mls @ 42 mls/hr IV ASDIR JESSICA Pantoprazole Sodium 40 mg/ (Sodium Chloride) 100 mls @ 200 mls/hr IVPB DAILY JESSICA ASSESSMENT AND PLAN: Acute Hypoxic and Hypercapneic Respiratory Failure Pneumonia Atelectasis UTI Septic Shock Acute Kidney Injury likely Post-obstructive Lactic Acidosis LV Systolic Dysfunction r/o GI Bleed Supratherapeutic INR improved Atrial Fibrillation - continue antibiotics - f/u cultures - IVF - monitoring off pressors, maintain MAP >65 - monitor urine output, creatinine - monitor H/H - protonix - hold sedation to assess mental status - spontaneous breathing trials when mental status improved - enteral feeds if unable to extubate - DVT/GI prophylaxis critical care time spent in reviewing chart, evaluating patient and formulating plan 35 min
--- NOTE | 2017-01-15 15:29 | PN ---
Physical Exam: SUBJECTIVE: Patient seen and examined OBJECTIVE: Vital Signs Period Temp Pulse Resp BP Sys/Chahal Pulse Ox Last 24 Hr 97.9 F-99.6 F 67-124 16-26 95-138/51-77 95-99 Gen: intubated, sedated Heart: RRR Lung: scattered rhonchi Abd: soft, nontender Ext: no edema Laboratory Results - last 24 hr 01/14/17 01/14/17 01/14/17 14:30 17:20 20:15 WBC 5.4 RBC 2.85 L Hgb 9.0 L Hct 25.8 L MCV 90.6 MCH 31.5 MCHC 34.7 RDW 15.4 Plt Count 210 MPV 7.5 Total Counted 100 Neutrophils % Y Neutrophils % (Manual) 82 Band Neuts % (Manual) 3 D Lymphocytes % Y Lymphocytes % (Manual) 8 Monocytes % (Manual) 5 D Other Cell Type Platelet Estimate Adequate Platelet Comment Few giant plts INR Sodium 134 L Potassium 4.9 Chloride 100 Carbon Dioxide 19 L Anion Gap 15 BUN 77 H Creatinine 3.5 H Creat Clearance w eGFR Random Glucose 206 H Calcium 7.9 L Phosphorus Magnesium Total Bilirubin AST ALT Alkaline Phosphatase Total Protein Albumin U Random Total Protein Ur Random Sodium 62 Ur Random Urea Nitrogn Urine Creatinine Random Vancomycin 01/14/17 01/14/17 01/14/17 20:15 20:15 20:15 WBC RBC Hgb Hct MCV MCH MCHC RDW Plt Count MPV Total Counted Neutrophils % Neutrophils % (Manual) Band Neuts % (Manual) Lymphocytes % Lymphocytes % (Manual) Monocytes % (Manual) Other Cell Type Platelet Estimate Platelet Comment INR Sodium Potassium Chloride Carbon Dioxide Anion Gap BUN Creatinine Creat Clearance w eGFR Random Glucose Calcium Phosphorus Magnesium Total Bilirubin AST ALT Alkaline Phosphatase Total Protein Albumin U Random Total Protein 247 H Ur Random Sodium Ur Random Urea Nitrogn 257 Urine Creatinine 43.3 Random Vancomycin 01/15/17 01/15/17 01/15/17 05:00 05:00 05:00 WBC 7.8 D RBC 3.03 L Hgb 9.3 L Hct 27.1 L MCV 89.6 MCH 30.6 MCHC 34.2 RDW 15.9 Plt Count 238 MPV 7.3 L Total Counted 100 Neutrophils % Y Neutrophils % (Manual) 87 H Band Neuts % (Manual) 3 Lymphocytes % Y Lymphocytes % (Manual) 3 L D Monocytes % (Manual) 7 Other Cell Type Platelet Estimate Platelet Comment INR Sodium 135 L Potassium 4.4 Chloride 101 Carbon Dioxide 23 D Anion Gap 11 BUN 78 H Creatinine 2.8 H Creat Clearance w eGFR 21.70 Random Glucose 176 H Calcium 7.9 L Phosphorus 2.5 Magnesium 1.9 Total Bilirubin 0.5 D AST 11 L D ALT 12 Alkaline Phosphatase 56 Total Protein 5.3 L Albumin 2.5 L U Random Total Protein Ur Random Sodium Ur Random Urea Nitrogn Urine Creatinine Random Vancomycin 8.159 01/15/17 01/15/17 05:00 10:18 WBC 7.3 RBC 3.02 L Hgb 9.3 L Hct 27.2 L MCV 89.9 MCH 30.7 MCHC 34.1 RDW 15.9 Plt Count 207 MPV 6.7 L Total Counted Neutrophils % Neutrophils % (Manual) Band Neuts % (Manual) Lymphocytes % Lymphocytes % (Manual) Monocytes % (Manual) Other Cell Type Platelet Estimate Platelet Comment INR 1.31 H D Sodium Potassium Chloride Carbon Dioxide Anion Gap BUN Creatinine Creat Clearance w eGFR Random Glucose Calcium Phosphorus Magnesium Total Bilirubin AST ALT Alkaline Phosphatase Total Protein Albumin U Random Total Protein Ur Random Sodium Ur Random Urea Nitrogn Urine Creatinine Random Vancomycin Active Medications Generic Name Dose Route Start Last Admin Trade Name Freq PRN Reason Stop Dose Admin Albuterol/Ipratropium 1 amp 01/14/17 06:00 01/15/17 11:37 Duoneb - NEB 1 amp QIDR JESSICA Administration Propofol 100 mls @ 3.265 mls/hr 01/14/17 01:15 01/15/17 08:55 Diprivan - IVPB 35.91 mls/hr TITR JESSICA Administration Protocol 5 MCG/KG/MIN Azithromycin 250 mls @ 250 mls/hr 01/14/17 01:45 01/15/17 09:59 Zithromax 500mg Ivpb (Pre-Docked) IVPB 250 mls/hr DAILY JESSICA Administration Piperacillin Sod/Tazobactam Sod 50 mls @ 100 mls/hr 01/14/17 18:00 01/15/17 09: 01 Zosyn 2.25gm Ivpb (Pre-Docked) IVPB 100 mls/hr Q8H-IV JESSICA Administration Protocol Sodium Chloride 1,000 mls @ 42 mls/hr 01/15/17 11:48 Normal Saline - IV ASDIR JESSICA Pantoprazole Sodium 40 mg/ 100 mls @ 200 mls/hr 01/16/17 10:00 Sodium Chloride IVPB DAILY [facility] ASSESSMENT/PLAN: 86 year old gentleman with PMhx of Afib on Coumadin, CHF, Hypertension, AAA repair, AVR, GI bleed who presented from [facility] with hypotension and AMS and found to have Melena/GI bleed with JOE and hyperkalemia. RENAL Acute Anuric Renal Failure -monitoring off pressors, maintain MAP >65 - monitor urine output, creatinine Continue NS at reduced rate of 42cc/hr Cardiovascular - monitor H/H ID - Cultures negative. Still on zosyn and azythromycin PULMONARY - Extubated today, off sedation - To investigate mass in bladder seen in bedside u/s GI - continue protonix - DVT/GI prophylaxis Visit type - Emergency Visit Emergency Visit: No - New Patient This patient is new to me today: No - Critical Care Critical Care patient: Yes Total Critical Care Time (in minutes): 20
[2017-01-16] MEDS: ALBUTEROL SO4 2.5/IPRATROPIUM 0.5 INH SOL 3 ML VIAL.NEB. NEB SCH ×5 (00:10→23:30)
[2017-01-16] MEDS: PIPERACILLIN/TAZOB 2.25 GM 50 ML IVPB SCH ×2 (03:02→10:18)
[2017-01-16] MEDS: SODIUM CHLORIDE 1,000 ML IV SCH ×2 (03:03→18:41)
[2017-01-16 06:33] LABS: MCH 30.8 pg (25.7-33.7); MEAN CELL VOLUME 93.2 fl (80-96); MEAN PLT VOLUME 7.2 fl (7.5-11.1); PLATELET COUNT 215 K/MM3 (134-434); RDW 16.4 % (11.9-15.9); WHITE BLOOD COUNT 5.9 K/mm3 (4.0-10.0)
[2017-01-16 06:36] LABS: ALBUMIN 2.6 g/dl (3.4-5.0); ALK PHOS 51 U/L (45-117); ANION GAP 10 (8-16); BILIRUBIN,TOTAL 0.5 mg/dL (0.2-1.0); CALCIUM 8.3 mg/dL (8.5-10.1); CO2 26 mmol/L (21-32); CREATININE 1.8 mg/dL (0.7-1.3); GLUCOSE,RANDOM 116 mg/dL (74-106); MAGNESIUM 1.9 mg/dL (1.8-2.4); PHOSPHOROUS 3.4 mg/dL (2.5-4.9); SGOT/AST 8 U/L (15-37); SGPT/ALT 11 U/L (12-78); TOT PROT 5.4 g/dl (6.4-8.2)
[2017-01-16 07:24] LABS: TOTAL CELLS COUNTED 100
--- NOTE | 2017-01-16 08:24 | PN ---
Physical Exam: SUBJECTIVE: Patient seen and examined. New onset deafness. PAtiewnt niece told me that he permanently lost hearing in one ear in the past due to antibiotics. OBJECTIVE: Vital Signs Period Temp Pulse Resp BP Sys/Chahal Pulse Ox Last 24 Hr 97.9 F-98.6 F 79-124 16-26 91-118/51-78 95-99 Gen: new onset deafness. irritable Heart: Irregularly irregular consistent witrh h/o a-fib. Notable systemic click consistent with aortic valve replacement Lung: scattered rhonchi Abd: soft, nontender Ext: no edema Intake & Output 01/13/17 01/14/17 01/15/17 01/16/17 23:59 23:59 23:59 23:59 Intake Total 3273.5 2809.7 554 Output Total 10 1850 3150 1600 Balance -10 1423.5 -340.3 -1046 Weight 108.635 kg 108.817 kg 115.938 kg 111.782 kg Laboratory Results - last 24 hr 01/15/17 01/16/17 01/16/17 10:18 05:00 05:00 WBC 7.3 5.9 RBC 3.02 L 3.07 L Hgb 9.3 L 9.4 L Hct 27.2 L 28.6 L MCV 89.9 93.2 MCH 30.7 30.8 MCHC 34.1 33.0 RDW 15.9 16.4 H Plt Count 207 215 MPV 6.7 L 7.2 L Total Counted 100 Neutrophils % Y Neutrophils % (Manual) 68 D Band Neuts % (Manual) 4 D Lymphocytes % Y Lymphocytes % (Manual) 15 D Monocytes % (Manual) 12 H Eosinophils % (Manual) 1 Sodium 145 Potassium 4.0 Chloride 109 H Carbon Dioxide 26 Anion Gap 10 BUN 63 H Creatinine 1.8 H D Creat Clearance w eGFR 36.13 Random Glucose 116 H D Calcium 8.3 L Phosphorus 3.4 D Magnesium 1.9 Total Bilirubin 0.5 AST 8 L D ALT 11 L Alkaline Phosphatase 51 Total Protein 5.4 L Albumin 2.6 L Active Medications Generic Name Dose Route Start Last Admin Trade Name Freq PRN Reason Stop Dose Admin Albuterol/Ipratropium 1 amp 01/14/17 06:00 01/16/17 06:20 Duoneb - NEB 1 amp QIDR JESSICA Administration Azithromycin 250 mls @ 250 mls/hr 01/14/17 01:45 01/15/17 09:59 Zithromax 500mg Ivpb (Pre-Docked) IVPB 250 mls/hr DAILY JESSICA Administration Piperacillin Sod/Tazobactam Sod 50 mls @ 100 mls/hr 01/14/17 18:00 01/16/17 03: 02 Zosyn 2.25gm Ivpb (Pre-Docked) IVPB 100 mls/hr Q8H-IV JESSICA Administration Protocol Sodium Chloride 1,000 mls @ 42 mls/hr 01/15/17 11:48 01/16/17 03:03 Normal Saline - IV 42 mls/hr ASDIR JESSICA Administration Pantoprazole Sodium 40 mg/ 100 mls @ 200 mls/hr 01/16/17 10:00 Sodium Chloride IVPB DAILY JESSICA ASSESSMENT/PLAN: 86 year old gentleman with PMhx of Afib on Coumadin, CHF, Hypertension, AAA repair, AVR, GI bleed who presented from [facility] with hypotension and AMS and found to have Melena/GI bleed with JOE and hyperkalemia. RENAL Acute Anuric Renal Failure -monitoring off pressors, maintain MAP >65 - monitor urine output, creatinine Continue NS at reduced rate of 42cc/hr Cardiovascular - monitor H/H - Started on lovenox. Id stable, transition back tp Coumadin ID - Cultures negative. Still on zosyn and azythromycin PULMONARY - Extubated yesterday, off sedation - To investigate mass in bladder seen in bedside u/s GI - continue protonix - Diet upgraded to normal diet Neuro: New onset Hearing loss likely due to antibiotics. Evaluation by ID or ENT ? - DVT/GI prophylaxis - TRANSFERRED TO FLOORS Visit type - Emergency Visit Emergency Visit: No - New Patient This patient is new to me today: No - Critical Care Critical Care patient: Yes Total Critical Care Time (in minutes): 30 Critical Care Statement: The care of this patient involved high complexity decision making to prevent further life threatening deterioration of the patient 's condition and/or to evaluate & treat vital organ system(s) failure or risk of failure.
--- NOTE | 2017-01-16 09:28 | PN ---
Progress Note, Physician History of Present Illness: Extubated Off pressors No acute distress Breathing non-labored Hard of hearing Afebrile WBC WNL BC no growth Renal function improved CXR improved aeration L lung - Current Medication List Current Medications: Active Medications Albuterol/Ipratropium (Duoneb -) 1 amp NEB QIDR [facility] Last Admin: 01/16/17 06:20 Dose: 1 amp Piperacillin Sod/Tazobactam Sod (Zosyn 2.25gm Ivpb (Pre-Docked)) 50 mls @ 100 mls/hr IVPB Q8H-IV JESSICA PRN Reason: Protocol Last Admin: 01/16/17 03:02 Dose: 100 mls/hr Sodium Chloride (Normal Saline -) 1,000 mls @ 42 mls/hr IV ASDIR [facility] Last Admin: 01/16/17 03:03 Dose: 42 mls/hr Pantoprazole Sodium 40 mg/ (Sodium Chloride) 100 mls @ 200 mls/hr IVPB DAILY [facility] - Objective Vital Signs: Vital Signs Temperature 98.4 F 01/16/17 06:00 Pulse Rate 100 H 01/16/17 08:00 Respiratory Rate 22 01/16/17 08:00 Blood Pressure 106/55 01/16/17 08:00 O2 Sat by Pulse Oximetry (%) 95 01/15/17 21:00 Constitutional: Yes: No Distress Eyes: Yes: Conjunctiva Clear Cardiovascular: Yes: Regular Rate and Rhythm, Murmur, S1, S2 Respiratory: Yes: Diminished Gastrointestinal: Yes: Normal Bowel Sounds, Soft, Abdomen, Obese. No: Tenderness Edema: Yes Integumentary: Yes: Venous Stasis Changes Labs: CBC, BMP 01/16/17 05:00 01/16/17 05:00 INR, PTT INR 1.31 (0.82-1.09) H D 01/15/17 05:00 Assessment/Plan Respiratory failure/ COPD exacerbation S/P extubation Atelectasis, possible pneumonia asp v. HCAP Septic v hemorrhagic shock-improved GI bleed CKD/ azotemia-improved S/P AVR, PPM Coagulopathy- resolved Continue empiric zosyn. D/C zithromax
--- NOTE | 2017-01-16 09:52 | PN ---
Progress Note, Physician Chief Complaint: extubated ,off pressors Pt states he could hear prior to fever but now can not hear. No records in [place] papers to say he was hard of hearing. - Current Medication List Current Medications: Active Medications Albuterol/Ipratropium (Duoneb -) 1 amp NEB QIDR JESSICA Last Admin: 01/16/17 06:20 Dose: 1 amp Piperacillin Sod/Tazobactam Sod (Zosyn 2.25gm Ivpb (Pre-Docked)) 50 mls @ 100 mls/hr IVPB Q8H-IV JESSICA PRN Reason: Protocol Last Admin: 01/16/17 03:02 Dose: 100 mls/hr Sodium Chloride (Normal Saline -) 1,000 mls @ 42 mls/hr IV ASDIR JESSICA Last Admin: 01/16/17 03:03 Dose: 42 mls/hr Pantoprazole Sodium 40 mg/ (Sodium Chloride) 100 mls @ 200 mls/hr IVPB DAILY JESSICA - Objective Vital Signs: Vital Signs Temperature 98.4 F 01/16/17 06:00 Pulse Rate 100 H 01/16/17 08:00 Respiratory Rate 22 01/16/17 08:00 Blood Pressure 106/55 01/16/17 08:00 O2 Sat by Pulse Oximetry (%) 95 01/15/17 21:00 Constitutional: Yes: No Distress, Calm Cardiovascular: Yes: Regular Rate and Rhythm, Murmur Respiratory: Yes: Diminished Gastrointestinal: Yes: Normal Bowel Sounds, Soft, Abdomen, Obese. No: Distention, Tenderness Edema: Yes Edema: LLE: Trace, RLE: Trace Psychiatric: Yes: Alert, Oriented Labs: CBC, BMP 01/16/17 05:00 01/16/17 05:00 INR, PTT INR 1.31 (0.82-1.09) H D 01/15/17 05:00 Problem List - Problems (1) Acidosis Code(s): E87.2 - ACIDOSIS (2) GI bleed Code(s): K92.2 - GASTROINTESTINAL HEMORRHAGE, UNSPECIFIED Qualifiers: GI bleed type/associated pathology: melena Qualified Code(s): K92.1 - Melena (3) Hypotension Code(s): I95.9 - HYPOTENSION, UNSPECIFIED Qualifiers: Hypotension type: unspecified hypotension type Qualified Code(s): I95.9 - Hypotension, unspecified (4) Renal failure (ARF), acute on chronic Code(s): N17.9 - ACUTE KIDNEY FAILURE, UNSPECIFIED N18.9 - CHRONIC KIDNEY DISEASE, UNSPECIFIED (5) Respiratory acidosis Code(s): E87.2 - ACIDOSIS (6) Respiratory failure Code(s): J96.90 - RESPIRATORY FAILURE, UNSP, UNSP W HYPOXIA OR HYPERCAPNIA Qualifiers: Chronicity: acute (7) Septic shock Code(s): A41.9 - SEPSIS, UNSPECIFIED ORGANISM R65.21 - SEVERE SEPSIS WITH SEPTIC SHOCK Assessment/Plan PLAN sue- hematuria-- renal function now improving IV antibiotics, dc Zithromax spoke with residents in ICU and ID unsure if due to antibiotics or sepsis, acute renal failure may need ENT evaluation CT head.,chest , abdomen and pelvis-- noted Echo done-- noted ?loculated pericardial effusion , hypokinetic posterolateral wall and inferior wall INR reversed, no further melena SCD for DVT prophylaxis
[2017-01-16] MEDS ORDERED: PANTOPRAZOLE SODIUM 40 MG in SODIUM CHLORIDE 100 ML IVPB SCH (10:00)
[2017-01-16] MEDS ORDERED: PT OWN MED DRAWER 7, Y5N ONE (10:05)
--- NOTE | 2017-01-16 11:10 | PN ---
GI Progress Note Subjective: No acute events Extubated Fr. Simmons is awake but says that he cannot hear I wrote down if he has ever had an endoscopy. He said no. This does not coincide with what has niece had described during my phone conversation with her. No overt melena reported - Objective Vital Signs: Vital Signs Temperature 97.9 F 01/16/17 10:00 Pulse Rate 87 01/16/17 10:19 Respiratory Rate 14 01/16/17 10:00 Blood Pressure 112/65 01/16/17 10:00 O2 Sat by Pulse Oximetry (%) 100 01/16/17 10:19 Constitutional: Calm Eyes: No: Sclera Icterus Cardiovascular: Yes: Pulse Irregular (regular rate) Respiratory: Yes: Diminished (at bases bilaterally) Gastrointestinal Inspection: No: Distention ...Auscultate: Yes: Normoactive Bowel Sounds ...Palpate: No: Tenderness Edema: Yes Edema: LLE: Trace (stasis changes), RLE: Trace (stasis changes) Neurological: Yes: Alert Labs: CBC, BMP 01/16/17 05:00 01/16/17 05:00 INR, PTT INR 1.31 (0.82-1.09) H D 01/15/17 05:00 Problem List - Problems (1) Anemia Assessment/Plan: I have not heard back from Brother Shamika as of yet. I would recommend trying to obtain more information regarding Father Iris's prior endoscopic history and history of anemia I did discuss upper endoscopy with Fr. Simmons: I needed to write down the information as he is hard of hearing. We discussed having the procedure performed as there was concern that he was having dark bowel movements and blood was found in his stool. I explained that he was also noted to be anemic. I wrote down that endoscopy could be performed to evaluate for sources of bleeding. I wrote down the potential risks of the procedure like but not limited to bleeding. perforation requiring surgery to repair, infection, sedation medication effects all of which could be potentially life threatening. He has agreed to the procedure verbally. Plan for potential EGD tomorrow. OK to resume A/C in setting of : Lovenox and hold in AM OK to advance diet. NPO after midnight except meds w/ small sips water Code(s): D64.9 - ANEMIA, UNSPECIFIED
--- NOTE | 2017-01-16 11:48 | PN ---
Progress Note (short form) - Note Progress Note: attempted to get consent for EGD. He now said No to the procedure and "get the hell out of here". EGD cancelled. I had spoken to his niece Alyse previously however she should be notified of his decision change. I spoke with the housestaff Please recall when Fr. Iris amenable to procedures Problem List - Problems (1) Anemia Code(s): D64.9 - ANEMIA, UNSPECIFIED
[2017-01-16] MEDS ORDERED: ENOXAPARIN NA (PORCINE) 100 MG/1 ML DISP.SYRIN SQ SCH (12:15)
[2017-01-16] MEDS ORDERED: ENOXAPARIN NA (PORCINE) 120 MG/0.8 ML DISP.SYRIN SQ SCH (12:24)
--- NOTE | 2017-01-16 12:24 | PN ---
Teaching Attending Note Name of Resident: Ruben Gonzalez ATTENDING PHYSICIAN STATEMENT I saw and evaluated the patient. I reviewed the resident's note and discussed the case with the resident. I agree with the resident's findings and plan as documented. SUBJECTIVE: Pt seen and examined in the ICU. Extubated yesterday without incident. States breathing has improved. Still with some hematuria. Reports bilateral hearing loss. OBJECTIVE: Last Vital Signs Temp Pulse Resp BP Pulse Ox 97.9 F 87 14 112/65 100 01/16/17 10:00 01/16/17 10:19 01/16/17 10:00 01/16/17 10:00 01/16/17 10:19 Intake & Output 01/13/17 01/14/17 01/15/17 01/16/17 23:59 23:59 23:59 23:59 Intake Total 3273.5 2809.7 554 Output Total 10 1850 3150 1600 Balance -10 1423.5 -340.3 -1046 Weight 239 lb 8 oz 239 lb 14.4 oz 255 lb 9.6 oz 246 lb 7 oz Gen: awake, alert HEENT: impacted cerumen right ear Heart: RRR Lung: decreased breath sounds at the bases Abd: soft, nontender Ext: less edema CBC, BMP 01/16/17 05:00 01/16/17 05:00 Active Medications Albuterol/Ipratropium (Duoneb -) 1 amp NEB QIDR [facility] Last Admin: 01/16/17 11:27 Dose: 1 amp Enoxaparin Sodium (Lovenox -) 110 mg SQ BID JESSICA Piperacillin Sod/Tazobactam Sod (Zosyn 2.25gm Ivpb (Pre-Docked)) 50 mls @ 100 mls/hr IVPB Q8H-IV JESSICA PRN Reason: Protocol Last Admin: 01/16/17 10:18 Dose: 100 mls/hr Sodium Chloride (Normal Saline -) 1,000 mls @ 42 mls/hr IV ASDIR [facility] Last Admin: 01/16/17 03:03 Dose: 42 mls/hr Pantoprazole Sodium 40 mg/ (Sodium Chloride) 100 mls @ 200 mls/hr IVPB DAILY [facility] Last Admin: 01/16/17 10:18 Dose: 200 mls/hr ASSESSMENT AND PLAN: Acute Hypoxic and Hypercapneic Respiratory Failure improved Pneumonia Atelectasis UTI Septic Shock resolving Acute Kidney Injury likely Post-obstructive Lactic Acidosis LV Systolic Dysfunction r/o GI Bleed Supratherapeutic INR improved Atrial Fibrillation h/o AVR - continue antibiotics - f/u cultures - monitoring off pressors, maintain MAP >65 - gentle hydration - monitor urine output, creatinine - monitor H/H - protonix - start lovenox - if H/H stable and no signs of bleeding, transition back to coumadin - PO as tolerated - ENT eval for hearing loss - DVT/GI prophylaxis - can monitor on floor critical care time spent in reviewing chart, evaluating patient and formulating plan 35 min
--- NOTE | 2017-01-16 15:36 | PN ---
Progress Note (short form) - Note Progress Note: Renal follow up for JOE Pt seen and examined in the ICU awake and alert extubated yesterday reports that he cannot hear making dark/bloody urine Vital Signs Temperature 97.9 F 01/16/17 14:00 Pulse Rate 81 01/16/17 14:00 Respiratory Rate 22 01/16/17 14:00 Blood Pressure 116/58 01/16/17 14:00 O2 Sat by Pulse Oximetry (%) 100 01/16/17 10:19 Vital Signs Temperature 97.9 F 01/16/17 14:00 Pulse Rate 81 01/16/17 14:00 Respiratory Rate 22 01/16/17 14:00 Blood Pressure 116/58 01/16/17 14:00 O2 Sat by Pulse Oximetry (%) 100 01/16/17 10:19 Gen: NAD, awake and alert ET Tbe in place CVS: RRR, No M/R Lungs: Dec BS left lung, no rales Abd: soft NT/ND Ext: No edema, clubbing or cyanosis CBC, BMP 01/16/17 05:00 01/16/17 05:00 Laboratory Tests 01/14/17 01/14/17 01/14/17 20:15 20:15 20:15 Calcium Phosphorus Albumin U Random Total Protein Ur Random Sodium 62 Ur Random Urea Nitrogn 257 Urine Creatinine 43.3 01/14/17 01/16/17 20:15 05:00 Calcium 8.3 L Phosphorus 3.4 D Albumin 2.6 L U Random Total Protein 247 H Ur Random Sodium Ur Random Urea Nitrogn Urine Creatinine Current Medications Albuterol/Ipratropium (Duoneb -) 1 amp NEB QIDR JESSICA Enoxaparin Sodium (Lovenox -) 110 mg SQ DAILY JESSICA Pantoprazole Sodium (Protonix 40mg Ivpb (Pre-Docked)) 100 mls @ 200 mls/hr IVPB DAILY JESSICA Sodium Chloride (Normal Saline -) 1,000 mls @ 42 mls/hr IV ASDIR JESSICA Piperacillin Sod/Tazobactam Sod (Zosyn 2.25gm Ivpb (Pre-Docked)) 50 mls @ 100 mls/hr IVPB Q8H-IV JESSICA PRN Reason: Protocol A/P 86 year old gentleman with PMhx of Afib on Coumadin, CHF, Hypertension, AAA repair, AVR, GI bleed who presented from [facility] with hypotension and AMS and found to have Melena/GI bleed with JOE and hyperkalmeia. #Acute Anuric Renal Failure with hx of CKD (? baseline Cr) with Hyperkalemia Etiology of JOE appears to be ATN FeNa was 4.5% indicating tubular damage Renal function improving and pt is non-oliguirc urine studies show UPCR of 5.7 -> check SHIRA, HgbA1c (may not be accurate as pt is not in a steady state) continue gentle Hydration with isotonic IVF keep MAP > 65 defer KAEL/ARB, NSAIDs #Sepsis/Hypvolemic shock Continue management as per ICU #Resp Failure s/p extubation ICU management Ludwig Storm DO Problem List - Problems (1) Acidosis Code(s): E87.2 - ACIDOSIS (2) GI bleed Code(s): K92.2 - GASTROINTESTINAL HEMORRHAGE, UNSPECIFIED Qualifiers: GI bleed type/associated pathology: melena Qualified Code(s): K92.1 - Melena (3) Hematuria Code(s): R31.9 - HEMATURIA, UNSPECIFIED Qualifiers: Hematuria type: unspecified type Qualified Code(s): R31.9 - Hematuria, unspecified (4) Hypotension Code(s): I95.9 - HYPOTENSION, UNSPECIFIED Qualifiers: Hypotension type: unspecified hypotension type Qualified Code(s): I95.9 - Hypotension, unspecified (5) Renal failure (ARF), acute on chronic Code(s): N17.9 - ACUTE KIDNEY FAILURE, UNSPECIFIED N18.9 - CHRONIC KIDNEY DISEASE, UNSPECIFIED (6) Respiratory failure Code(s): J96.90 - RESPIRATORY FAILURE, UNSP, UNSP W HYPOXIA OR HYPERCAPNIA Qualifiers: Chronicity: acute
[2017-01-16] MEDS ORDERED: PIPERACILLIN/TAZOB 2.25 GM 50 ML IVPB SCH (18:00)
[2017-01-17] MEDS: PIPERACILLIN/TAZOB 2.25 GM 2.25 GM in DEXTROSE 5%-WATER - 50 ML IVPB SCH ×2 (01:17→09:04)
[2017-01-17] MEDS: SODIUM CHLORIDE 1,000 ML IV SCH ×2 (06:09→13:33)
[2017-01-17 07:15] LABS: MCH 30.8 pg (25.7-33.7); MCHC 33.2 g/dl (32.0-35.9); MEAN PLT VOLUME 6.5 fl (7.5-11.1); PLATELET COUNT 160 K/MM3 (134-434); RDW 16.3 % (11.9-15.9); WHITE BLOOD COUNT 6.3 K/mm3 (4.0-10.0)
[2017-01-17] MEDS: ALBUTEROL SO4 2.5/IPRATROPIUM 0.5 INH SOL 3 ML VIAL.NEB. NEB SCH ×4 (07:20→23:19)
[2017-01-17 07:58] LABS: ALBUMIN 2.3 g/dl (3.4-5.0); ALK PHOS 43 U/L (45-117); ANION GAP 4 (8-16); BILIRUBIN,TOTAL 0.6 mg/dL (0.2-1.0); CALCIUM 8.2 mg/dL (8.5-10.1); CO2 30 mmol/L (21-32); CREATININE 1.1 mg/dL (0.7-1.3); GLUCOSE,RANDOM 92 mg/dL (74-106); MAGNESIUM 1.7 mg/dL (1.8-2.4); PHOSPHOROUS 3.2 mg/dL (2.5-4.9); SGOT/AST 10 U/L (15-37); SGPT/ALT 9 U/L (12-78); TOT PROT 5.2 g/dl (6.4-8.2)
[2017-01-17 08:53] LABS: TOTAL CELLS COUNTED 100
[2017-01-17] MEDS ORDERED: PIPERACILLIN/TAZOBACTAM 2.25 GM VIAL IVPB ONE (08:56)
[2017-01-17] MEDS ORDERED: PT OWN MED DRAWER 7, Y5N ONE (08:56)
[2017-01-17] MEDS ORDERED: DEXTROSE 5%-WATER - 50 ML IVPB ONE (08:57)
[2017-01-17] MEDS: ENOXAPARIN NA (PORCINE) 120 MG/0.8 ML DISP.SYRIN SQ SCH (09:05)
[2017-01-17] MEDS ORDERED: PANTOPRAZOLE SODIUM 100 ML IVPB SCH (10:00)
--- NOTE | 2017-01-17 11:47 | PN ---
Progress Note (short form) - Note Progress Note: Pt seen/ examined chart reviewed. comfortble no distress all f/u noted Vital Signs Temp 98.4 F 01/17/17 09:32 Pulse 94 H 01/17/17 09:32 Resp 18 01/17/17 09:32 BP 127/64 01/17/17 09:32 Pulse Ox 98 01/17/17 09:00 Intake & Output 01/16/17 01/16/17 01/17/17 11:59 23:59 11:59 Intake Total 554 504 650 Output Total 1600 1400 550 Balance -1046 -896 100 Weight 246 lb 7 oz Intake: IV 504 504 500 Normal Saline - 1,000 ml 504 @ 42 mls/hr IV ASDIR [facility] Rx#:[id number] Normal Saline - 1,000 ml 504 500 @ 42 mls/hr IV ASDIR [facility] Rx#:[id number] IVPB 50 50 Oral 0 100 Output: Urine 1600 1400 550 Sue 1600 1400 550 Other: Voiding Method Indwelling Catheter Indwelling Catheter Indwelling Catheter # Unmeasured Voids Sue 2 Bowel Movement No Weight Measurement Method Built in [facility] Active Medications Albuterol/Ipratropium (Duoneb -) 1 amp NEB QIDR [facility] Last Admin: 01/17/17 07:20 Dose: Not Given Enoxaparin Sodium (Lovenox -) 110 mg SQ DAILY [facility] Last Admin: 01/17/17 09:05 Dose: 110 mg Sodium Chloride (Normal Saline -) 1,000 mls @ 42 mls/hr IV ASDIR [facility] Last Admin: 01/17/17 06:09 Dose: 42 mls/hr Piperacillin Sod/Tazobactam (Sod 2.25 gm/ Dextrose) 50 mls @ 100 mls/hr IVPB Q8H-IV JESSICA PRN Reason: Protocol Last Admin: 01/17/17 09:04 Dose: 100 mls/hr Pantoprazole Sodium 40 mg/ (Sodium Chloride) 100 mls @ 200 mls/hr IVPB DAILY [facility] CBC, BMP 01/17/17 06:00 01/17/17 06:00 Physical Exam. Constitutional: Yes: No Distress, Calm/ comfortable Cardiovascular: Yes: Regular Rate and Rhythm, Murmur Respiratory: Yes: Diminished at bases Gastrointestinal: Yes: Normal Bowel Sounds, Soft, Abdomen, Obese. No: Distention, Tenderness Edema: Yes Edema: LLE: Trace, RLE: Trace Psychiatric: Yes: Alert, Oriented Problem List - Problems (1) Acidosis Code(s): E87.2 - ACIDOSIS (2) GI bleed Code(s): K92.2 - GASTROINTESTINAL HEMORRHAGE, UNSPECIFIED Qualifiers: GI bleed type/associated pathology: melena Qualified Code(s): K92.1 - Melena (3) Hypotension Code(s): I95.9 - HYPOTENSION, UNSPECIFIED Qualifiers: Hypotension type: unspecified hypotension type Qualified Code(s): I95.9 - Hypotension, unspecified (4) Renal failure (ARF), acute on chronic Code(s): N17.9 - ACUTE KIDNEY FAILURE, UNSPECIFIED N18.9 - CHRONIC KIDNEY DISEASE, UNSPECIFIED (5) Respiratory acidosis Code(s): E87.2 - ACIDOSIS (6) Respiratory failure Code(s): J96.90 - RESPIRATORY FAILURE, UNSP, UNSP W HYPOXIA OR HYPERCAPNIA Qualifiers: Chronicity: acute (7) Septic shock Code(s): A41.9 - SEPSIS, UNSPECIFIED ORGANISM R65.21 - SEVERE SEPSIS WITH SEPTIC SHOCK Assessment/Plan stable h/h stable sue- hematuria-- renal function better meds reviewed continue present care monitor h/h/ lytes ent consult pending - for hearing loss. will follow.
[2017-01-17] MEDS: PANTOPRAZOLE SODIUM 40 MG in SODIUM CHLORIDE 100 ML IVPB SCH (13:33)
--- NOTE | 2017-01-17 13:51 | PN ---
Progress Note, Physician History of Present Illness: Awake Offers no complaints Breathing non-labored. No cough noted Afebrile WBC WNL Cultures negative - Current Medication List Current Medications: Active Medications Albuterol/Ipratropium (Duoneb -) 1 amp NEB QIDR [facility] Last Admin: 01/17/17 12:01 Dose: Not Given Enoxaparin Sodium (Lovenox -) 110 mg SQ DAILY [facility] Last Admin: 01/17/17 09:05 Dose: 110 mg Sodium Chloride (Normal Saline -) 1,000 mls @ 42 mls/hr IV ASDIR [facility] Last Admin: 01/17/17 13:33 Dose: Not Given Piperacillin Sod/Tazobactam (Sod 2.25 gm/ Dextrose) 50 mls @ 100 mls/hr IVPB Q8H-IV [facility] PRN Reason: Protocol Last Admin: 01/17/17 09:04 Dose: 100 mls/hr Pantoprazole Sodium 40 mg/ (Sodium Chloride) 100 mls @ 200 mls/hr IVPB DAILY [facility] Last Admin: 01/17/17 13:33 Dose: 200 mls/hr - Objective Vital Signs: Vital Signs Temperature 98.4 F 01/17/17 09:32 Pulse Rate 94 H 01/17/17 09:32 Respiratory Rate 18 01/17/17 09:32 Blood Pressure 127/64 01/17/17 09:32 O2 Sat by Pulse Oximetry (%) 98 01/17/17 09:00 Constitutional: Yes: No Distress, Obese Eyes: Yes: Conjunctiva Clear Cardiovascular: Yes: Regular Rate and Rhythm, S1, S2 Respiratory: Yes: Diminished Gastrointestinal: Yes: Normal Bowel Sounds, Soft. No: Tenderness Edema: Yes Edema: LLE: 2+, RLE: 2+ Integumentary: Yes: Venous Stasis Changes Labs: CBC, BMP 01/17/17 06:00 01/17/17 06:00 INR, PTT INR 1.31 (0.82-1.09) H D 01/15/17 05:00 Assessment/Plan Respiratory failure/ COPD exacerbation S/P extubation Atelectasis, possible pneumonia asp v. HCAP Septic v hemorrhagic shock-improved GI bleed CKD/ azotemia-improved S/P AVR, PPM Coagulopathy- resolved Day # 5 antibiotics Substitute po Augmentin 875mg bid x 3d
--- NOTE | 2017-01-17 14:35 | PN ---
Progress Note (short form) - Note Progress Note: Renal follow up for JOE Pt seen and examined at the bedside awake and alert but cannot hear no overnight events continues to have hematuria in seu bag denies any sob, chest pain on IVF Vital Signs Temperature 97.5 F L 01/17/17 13:44 Pulse Rate 94 H 01/17/17 13:44 Respiratory Rate 20 01/17/17 13:44 Blood Pressure 124/67 01/17/17 13:44 O2 Sat by Pulse Oximetry (%) 98 01/17/17 09:00 Intake & Output 01/14/17 01/15/17 01/16/17 01/17/17 23:59 23:59 23:59 23:59 Intake Total 3273.5 2809.7 1058 1150 Output Total 1850 3150 3000 1350 Balance 1423.5 -340.3 -1942 -200 Weight 239 lb 14.4 oz 255 lb 9.6 oz 246 lb 7 oz Gen: NAD, awake and alert ET Tbe in place CVS: RRR, No M/R Lungs: Dec BS left lung, no rales Abd: soft NT/ND Ext: No edema, clubbing or cyanosis CBC, BMP 01/17/17 06:00 01/17/17 06:00 Current Medications Albuterol/Ipratropium (Duoneb -) 1 amp NEB QIDR [facility] Last Admin: 01/17/17 12:01 Dose: Not Given Amoxicillin/Clavulanate Potassium (Augmentin - 875mg Tablet) 1 tab PO BID@0800, 1730 [facility] Enoxaparin Sodium (Lovenox -) 110 mg SQ DAILY [facility] Last Admin: 01/17/17 09:05 Dose: 110 mg Sodium Chloride (Normal Saline -) 1,000 mls @ 42 mls/hr IV ASDIR [facility] Last Admin: 01/17/17 13:33 Dose: Not Given Pantoprazole Sodium 40 mg/ (Sodium Chloride) 100 mls @ 200 mls/hr IVPB DAILY [facility] Last Admin: 01/17/17 13:33 Dose: 200 mls/hr A/P 86 year old gentleman with PMhx of Afib on Coumadin, CHF, Hypertension, AAA repair, AVR, GI bleed who presented from [facility] with hypotension and AMS and found to have Melena/GI bleed with JOE and hyperkalmeia. #Acute Anuric Renal Failure with hx of CKD (? baseline Cr) with Hyperkalemia Renal function with significant improvement continue gentle IVF #Hematuria Bladder US showed large mass that is likely clot vs. hematoma will request urology evaluation Ludwig Storm DO Problem List - Problems (1) Acidosis Code(s): E87.2 - ACIDOSIS (2) GI bleed Code(s): K92.2 - GASTROINTESTINAL HEMORRHAGE, UNSPECIFIED Qualifiers: GI bleed type/associated pathology: melena Qualified Code(s): K92.1 - Melena (3) Hematuria Code(s): R31.9 - HEMATURIA, UNSPECIFIED Qualifiers: Hematuria type: unspecified type Qualified Code(s): R31.9 - Hematuria, unspecified (4) Hypotension Code(s): I95.9 - HYPOTENSION, UNSPECIFIED Qualifiers: Hypotension type: unspecified hypotension type Qualified Code(s): I95.9 - Hypotension, unspecified (5) Renal failure (ARF), acute on chronic Code(s): N17.9 - ACUTE KIDNEY FAILURE, UNSPECIFIED N18.9 - CHRONIC KIDNEY DISEASE, UNSPECIFIED (6) Respiratory failure Code(s): J96.90 - RESPIRATORY FAILURE, UNSP, UNSP W HYPOXIA OR HYPERCAPNIA Qualifiers: Chronicity: acute
[2017-01-17] MEDS ORDERED: MAGNESIUM SULF 50% (8.12 MEQ/2 ML-1 GM VIAL) IVPB ONE ×2 (14:43→17:30)
--- NOTE | 2017-01-17 14:56 | PN ---
Progress Note, Physician History of Present Illness: PULMONARY ALERT,NAD.-DYSPNEA,-TACHYPNEA - Current Medication List Current Medications: Active Medications Albuterol/Ipratropium (Duoneb -) 1 amp NEB QIDR [facility] Last Admin: 01/17/17 12:01 Dose: Not Given Amoxicillin/Clavulanate Potassium (Augmentin - 875mg Tablet) 1 tab PO BID@0800, 1730 [facility] Enoxaparin Sodium (Lovenox -) 110 mg SQ DAILY [facility] Last Admin: 01/17/17 09:05 Dose: 110 mg Sodium Chloride (Normal Saline -) 1,000 mls @ 42 mls/hr IV ASDIR [facility] Last Admin: 01/17/17 13:33 Dose: Not Given Pantoprazole Sodium 40 mg/ (Sodium Chloride) 100 mls @ 200 mls/hr IVPB DAILY [facility] Last Admin: 01/17/17 13:33 Dose: 200 mls/hr - Objective Vital Signs: Vital Signs Temperature 97.5 F L 01/17/17 13:44 Pulse Rate 94 H 01/17/17 13:44 Respiratory Rate 20 01/17/17 13:44 Blood Pressure 124/67 01/17/17 13:44 O2 Sat by Pulse Oximetry (%) 98 01/17/17 09:00 Constitutional: Yes: Well Nourished, Calm Eyes: Yes: WNL HENT: Yes: WNL Neck: Yes: WNL Cardiovascular: Yes: Pulse Irregular, S1, S2 Respiratory: Yes: Diminished Gastrointestinal: Yes: Normal Bowel Sounds, Soft Extremities: Yes: WNL Edema: No Labs: CBC, BMP 01/17/17 06:00 01/17/17 06:00 INR, PTT INR 1.31 (0.82-1.09) H D 01/15/17 05:00 Problem List - Problems (1) Acidosis Code(s): E87.2 - ACIDOSIS (2) Renal failure (ARF), acute on chronic Code(s): N17.9 - ACUTE KIDNEY FAILURE, UNSPECIFIED N18.9 - CHRONIC KIDNEY DISEASE, UNSPECIFIED (3) Respiratory failure Code(s): J96.90 - RESPIRATORY FAILURE, UNSP, UNSP W HYPOXIA OR HYPERCAPNIA Qualifiers: Chronicity: acute (4) Septic shock Code(s): A41.9 - SEPSIS, UNSPECIFIED ORGANISM R65.21 - SEVERE SEPSIS WITH SEPTIC SHOCK (5) Afib Code(s): I48.91 - UNSPECIFIED ATRIAL FIBRILLATION Assessment/Plan ASSESSMENT AND PLAN: Acute Hypoxic and Hypercapneic Respiratory Failure improved Pneumonia clinically improved Atelectasis UTI Septic Shock resolved Acute Kidney Injury 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
--- NOTE | 2017-01-17 16:45 | CON.ENT ---
Consult Consult Specialty:: ENT Reason for Consultation:: Trouble hearing - History of Present Illness Chief Complaint: Sudden decrease in hearing History of Present Illness: PT notes sudden decreased hearing on the right side since admission and treatment for sepsis. Unable to determine his level of hearing prior. - History Source History Provided By: Medical Record Limitations to Obtaining History: Clinical Condition - Past Medical History Cardio/Vascular: Yes: AFIB, Aneurysm (h/o aortic aneurysm repair), Aortic Stenosis (s/p AVR), CHF, HTN Gastrointestinal: Yes: GI Bleed Renal/: Yes: Renal Failure ENT: Yes: Other (hearing loss) - Alcohol/Substance Use Hx Alcohol Use: Yes (60mL gin daily) - Smoking History Smoking history: Current every day smoker Aproximately how many cigarettes per day: 10 - Social History Usual Living Arrangement: Halfway ([facility]) History of Recent Travel: No Home Medications - Allergies Allergies/Adverse Reactions: Allergies Allergy/AdvReac Type Severity Reaction Status Date / Time No Known Allergies Allergy Verified 01/13/17 18:29 - Home Medications Home Medications: Ambulatory Orders Enalapril Maleate [Vasotec -] 10 mg PO DAILY 01/13/17 Ferrous Sulfate 325 mg PO BID 01/13/17 Folic Acid 1 mg PO DAILY 01/13/17 Guaifenesin [Mucinex] 600 mg PO BID 01/13/17 Pantoprazole Sodium 40 mg PO DAILY 01/13/17 Potassium Chloride [K-Tab ER] 10 meq PO DAILY 01/13/17 Simvastatin 40 mg PO HS 01/13/17 Sucralfate [Carafate -] 1 gm PO AC 01/13/17 Warfarin Na [Coumadin] 5 mg PO DAILY 01/13/17 Review of Systems - Review of Systems HENT: reports: Hearing Loss Physical Exam-ENT Vital Signs: Vital Signs Temperature 97.5 F L 01/17/17 13:44 Pulse Rate 94 H 01/17/17 13:44 Respiratory Rate 20 01/17/17 13:44 Blood Pressure 124/67 01/17/17 13:44 O2 Sat by Pulse Oximetry (%) 98 01/17/17 09:00 Constitutional: Yes: No Distress Head: Yes: Atraumatic Face: Yes: WNL Nose: Yes: Pale, Other (O2 nasal) Oral/Pharynx: Yes: WNL Outer Ear: Yes: WNL Ear Canal: Yes: Cerumen Tympanic Membrane: Yes: WNL Neck: Yes: Supple Neurological: Yes: Cran Nerves II-XII Intact Problem List - Problems (1) Hearing loss Assessment/Plan: Recent decreased hearing since hospitalized for sepsis. Impacted cerumen noted on the right side, unable to remove at bedside. Can start on Debrox drops 2x/ day. Patient needs to follow-up as outpatient for removal and audiogram to assess for sensorineural loss(not available as in-patient). Code(s): H91.90 - UNSPECIFIED HEARING LOSS, UNSPECIFIED EAR Qualifiers: Hearing loss type: unspecified Laterality: unspecified laterality Qualified Code(s): H91.90 - Unspecified hearing loss, unspecified ear
--- NOTE | 2017-01-17 17:13 | CON.GU ---
Consult Consult Specialty:: Reason for Consultation:: 86-year-old man with gross hematuria. She was admitted with an elevated INR. He is unable to give an accurate history. CT scan and ultrasound revealed a blood clot within the bladder. - History of Present Illness Chief Complaint: Gross hematuria History of Present Illness: see above. - History Source History Provided By: Medical Record Limitations to Obtaining History: Dementia - Past Medical History Cardio/Vascular: Yes: AFIB, Aneurysm (h/o aortic aneurysm repair), Aortic Stenosis (s/p AVR), CHF, HTN Gastrointestinal: Yes: GI Bleed Renal/: Yes: Renal Failure ENT: Yes: Other (hearing loss) - Alcohol/Substance Use Hx Alcohol Use: Yes (60mL gin daily) - Smoking History Smoking history: Current every day smoker Aproximately how many cigarettes per day: 10 - Social History Usual Living Arrangement: Skilled Nursing ([facility]) History of Recent Travel: No Home Medications - Allergies Allergies/Adverse Reactions: Allergies Allergy/AdvReac Type Severity Reaction Status Date / Time No Known Allergies Allergy Verified 01/13/17 18:29 - Home Medications Home Medications: Ambulatory Orders Enalapril Maleate [Vasotec -] 10 mg PO DAILY 01/13/17 Ferrous Sulfate 325 mg PO BID 01/13/17 Folic Acid 1 mg PO DAILY 01/13/17 Guaifenesin [Mucinex] 600 mg PO BID 01/13/17 Pantoprazole Sodium 40 mg PO DAILY 01/13/17 Potassium Chloride [K-Tab ER] 10 meq PO DAILY 01/13/17 Simvastatin 40 mg PO HS 01/13/17 Sucralfate [Carafate -] 1 gm PO AC 01/13/17 Warfarin Na [Coumadin] 5 mg PO DAILY 01/13/17 Review of Systems - Review of Systems Genitourinary: reports: Hematuria Physical Exam- Vital Signs: Vital Signs Temperature 97.5 F L 01/17/17 13:44 Pulse Rate 94 H 01/17/17 13:44 Respiratory Rate 20 01/17/17 13:44 Blood Pressure 124/67 01/17/17 13:44 O2 Sat by Pulse Oximetry (%) 98 01/17/17 09:00 Renal/: Yes: Concepcion Present, Hematuria Labs: CBC, BMP 01/17/17 06:00 01/17/17 06:00 Assessment/Plan Gross hematuria. Correct his coagulopathy. May remove the Concepcion on FridayJanuary 18. Will need cystoscopy at some point.
[2017-01-17] MEDS: AMOX TR/POT CLAV 875MG/125MG TABLETS (FP) PO SCH (17:27)
[2017-01-17 20:20] LABS: MCH 30.9 pg (25.7-33.7); MCHC 32.6 g/dl (32.0-35.9); MEAN CELL VOLUME 94.6 fl (80-96); PLATELET COUNT 174 K/MM3 (134-434); RDW 16.4 % (11.9-15.9); WHITE BLOOD COUNT 6.7 K/mm3 (4.0-10.0)
[2017-01-17] MEDS: CARBAMIDE PEROXIDE 6.5% OTIC 15 ML BOTTLE AD SCH (21:40)
[2017-01-18] MEDS: ALBUTEROL SO4 2.5/IPRATROPIUM 0.5 INH SOL 3 ML VIAL.NEB. NEB SCH ×4 (05:56→23:23)
[2017-01-18] MEDS ORDERED: PT OWN MED DRAWER 7, Y5N ONE (10:44)
--- NOTE | 2017-01-18 10:45 | PN ---
Progress Note (short form) - Note Progress Note: Renal follow up for JOE Pt seen and examined at the bedside awake and alert being transported to be bathroom sue still with dark urine no overnight events Vital Signs Temperature 97.5 F L 01/18/17 05:55 Pulse Rate 92 H 01/18/17 05:55 Respiratory Rate 20 01/18/17 05:55 Blood Pressure 125/68 01/18/17 05:55 O2 Sat by Pulse Oximetry (%) 99 01/17/17 21:00 Intake & Output 01/15/17 01/16/17 01/17/17 01/18/17 23:59 23:59 23:59 23:59 Intake Total 2809.7 1058 1318 712 Output Total 3150 3000 1850 400 Balance -340.3 -1942 -532 312 Weight 255 lb 9.6 oz 246 lb 7 oz Gen: NAD, awake and alert ET Tbe in place CVS: RRR, No M/R Lungs: Dec BS left lung, no rales Abd: soft NT/ND Ext: No edema, clubbing or cyanosis CBC, BMP 01/17/17 20:00 01/17/17 06:00 Laboratory Tests 01/17/17 06:00 Calcium 8.2 L Phosphorus 3.2 Magnesium 1.7 L Albumin 2.3 L Current Medications Albuterol/Ipratropium (Duoneb -) 1 amp NEB QIDR [facility] Last Admin: 01/18/17 05:56 Dose: Not Given Amoxicillin/Clavulanate Potassium (Augmentin - 875mg Tablet) 1 tab PO BID@0800, 1730 [facility] Last Admin: 01/17/17 17:27 Dose: 1 tab Carbamide Perox/Anhydrous Glycerin (Debrox -) 5 drop AD BID [facility] Last Admin: 01/17/17 21:40 Dose: 5 drop Enoxaparin Sodium (Lovenox -) 110 mg SQ DAILY [facility] Last Admin: 01/17/17 09:05 Dose: 110 mg Sodium Chloride (Normal Saline -) 1,000 mls @ 42 mls/hr IV ASDIR [facility] Last Admin: 01/17/17 13:33 Dose: Not Given Pantoprazole Sodium 40 mg/ (Sodium Chloride) 100 mls @ 200 mls/hr IVPB DAILY [facility] Last Admin: 01/17/17 13:33 Dose: 200 mls/hr A/P 86 year old gentleman with PMhx of Afib on Coumadin, CHF, Hypertension, AAA repair, AVR, GI bleed who presented from [facility] with hypotension and AMS and found to have Melena/GI bleed with JOE and hyperkalmeia. #Acute Anuric Renal Failure with hx of CKD (? baseline Cr) with Hyperkalemia Renal function improved and stable Can D/C IVF Trend BUN/Cr #Hematuria Seen by can d/c linette today and do trial of void Trend CBC Ludwig Storm DO Problem List - Problems (1) Acidosis Code(s): E87.2 - ACIDOSIS (2) GI bleed Code(s): K92.2 - GASTROINTESTINAL HEMORRHAGE, UNSPECIFIED Qualifiers: Qualified Code(s): K92.1 - Melena (3) Hematuria Code(s): R31.9 - HEMATURIA, UNSPECIFIED Qualifiers: Qualified Code(s): R31.9 - Hematuria, unspecified (4) Hypotension Code(s): I95.9 - HYPOTENSION, UNSPECIFIED Qualifiers: Qualified Code(s): I95.9 - Hypotension, unspecified (5) Renal failure (ARF), acute on chronic Code(s): N17.9 - ACUTE KIDNEY FAILURE, UNSPECIFIED N18.9 - CHRONIC KIDNEY DISEASE, UNSPECIFIED (6) Respiratory failure Code(s): J96.90 - RESPIRATORY FAILURE, UNSP, UNSP W HYPOXIA OR HYPERCAPNIA
--- NOTE | 2017-01-18 10:48 | PN ---
Progress Note (short form) - Note Progress Note: Awake and alert. Mumbles. No acute events overnight. NAD on NC O2. Intake & Output 01/15/17 01/16/17 01/17/17 01/18/17 23:59 23:59 23:59 23:59 Intake Total 2809.7 1058 1318 712 Output Total 3150 3000 1850 400 Balance -340.3 -1942 -532 312 Weight 255 lb 9.6 oz 246 lb 7 oz Last Vital Signs Temp Pulse Resp BP Pulse Ox 97.5 F L 92 H 20 125/68 99 01/18/17 05:55 01/18/17 05:55 01/18/17 05:55 01/18/17 05:55 01/17/17 21:00 Active Medications Albuterol/Ipratropium (Duoneb -) 1 amp NEB QIDR [facility] Last Admin: 01/18/17 05:56 Dose: Not Given Amoxicillin/Clavulanate Potassium (Augmentin - 875mg Tablet) 1 tab PO BID@0800, 1730 [facility] Last Admin: 01/17/17 17:27 Dose: 1 tab Carbamide Perox/Anhydrous Glycerin (Debrox -) 5 drop AD BID [facility] Last Admin: 01/17/17 21:40 Dose: 5 drop Enoxaparin Sodium (Lovenox -) 110 mg SQ DAILY [facility] Last Admin: 01/17/17 09:05 Dose: 110 mg Sodium Chloride (Normal Saline -) 1,000 mls @ 42 mls/hr IV ASDIR [facility] Last Admin: 01/17/17 13:33 Dose: Not Given Pantoprazole Sodium 40 mg/ (Sodium Chloride) 100 mls @ 200 mls/hr IVPB DAILY [facility] Last Admin: 01/17/17 13:33 Dose: 200 mls/hr Constitutional: Yes: NAD, Calm Eyes: Yes: WNL HENT: Yes: WNL Neck: Yes: WNL Cardiovascular: Yes: Pulse Irregular, S1, S2 Respiratory: Yes: Diminished Gastrointestinal: Yes: Normal Bowel Sounds, Soft Extremities: Yes: WNL Edema: No Labs: Laboratory Results - last 24 hr 01/17/17 01/17/17 19:30 20:00 WBC 6.7 RBC 3.11 L Hgb 9.6 L Hct 29.5 L MCV 94.6 MCH 30.9 MCHC 32.6 RDW 16.4 H Plt Count 174 MPV 7.0 L Stool Occult Blood Positive Problem List - Problems (1) Acidosis Code(s): E87.2 - ACIDOSIS (2) Renal failure (ARF), acute on chronic Code(s): N17.9 - ACUTE KIDNEY FAILURE, UNSPECIFIED N18.9 - CHRONIC KIDNEY DISEASE, UNSPECIFIED (3) Respiratory failure Code(s): J96.90 - RESPIRATORY FAILURE, UNSP, UNSP W HYPOXIA OR HYPERCAPNIA Qualifiers: Chronicity: acute (4) Septic shock Code(s): A41.9 - SEPSIS, UNSPECIFIED ORGANISM R65.21 - SEVERE SEPSIS WITH SEPTIC SHOCK (5) Afib Code(s): I48.91 - UNSPECIFIED ATRIAL FIBRILLATION Assessment/Plan Acute Hypoxic and Hypercapneic Respiratory Failure improved Pneumonia clinically improved Atelectasis UTI Septic Shock resolved Acute Kidney Injury 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
--- NOTE | 2017-01-18 10:51 | PN ---
Progress Note (short form) - Note Progress Note: pt seen/ examined having diarrea-- dark dark colored urine all f/u / consults noted/ appreciated afebrile Vital Signs Temp 97.5 F L 01/18/17 05:55 Pulse 92 H 01/18/17 05:55 Resp 20 01/18/17 05:55 BP 125/68 01/18/17 05:55 Pulse Ox 99 01/17/17 21:00 Intake & Output 01/17/17 01/17/17 01/18/17 11:59 23:59 11:59 Intake Total 650 668 712 Output Total 550 1300 400 Balance 100 -632 312 Intake: IV 500 168 462 Normal Saline - 1,000 ml 500 168 462 @ 42 mls/hr IV ASDIR [facility] Rx#:[id number] IVPB 50 Oral 100 500 250 Output: Urine 550 1300 400 Sue 550 1300 400 Other: Voiding Method Indwelling Catheter Indwelling Catheter Diaper # Unmeasured Voids Sue 2 Bowel Movement No Yes Active Medications Albuterol/Ipratropium (Duoneb -) 1 amp NEB QIDR [facility] Last Admin: 01/18/17 05:56 Dose: Not Given Amoxicillin/Clavulanate Potassium (Augmentin - 875mg Tablet) 1 tab PO BID@0800, 1730 [facility] Last Admin: 01/17/17 17:27 Dose: 1 tab Carbamide Perox/Anhydrous Glycerin (Debrox -) 5 drop AD BID [facility] Last Admin: 01/17/17 21:40 Dose: 5 drop Enoxaparin Sodium (Lovenox -) 110 mg SQ DAILY [facility] Last Admin: 01/17/17 09:05 Dose: 110 mg Sodium Chloride (Normal Saline -) 1,000 mls @ 42 mls/hr IV ASDIR [facility] Last Admin: 01/17/17 13:33 Dose: Not Given Pantoprazole Sodium 40 mg/ (Sodium Chloride) 100 mls @ 200 mls/hr IVPB DAILY [facility] Last Admin: 01/17/17 13:33 Dose: 200 mls/hr CBC, BMP 01/17/17 20:00 01/17/17 06:00 Physical Exam. Constitutional: Yes: No Distress, comfortable Cardiovascular: Yes: Regular Rate and Rhythm, Murmur Respiratory: Yes: Diminished at bases Gastrointestinal: Yes: Normal Bowel Sounds, Soft, Abdomen, Obese. No: Distention, Tenderness Edema: Yes Edema: LLE: Trace, RLE: Trace Psychiatric: Yes: Alert, Oriented Problem List - Problems (1) Acidosis Code(s): E87.2 - ACIDOSIS (2) GI bleed Code(s): K92.2 - GASTROINTESTINAL HEMORRHAGE, UNSPECIFIED Qualifiers: GI bleed type/associated pathology: melena Qualified Code(s): K92.1 - Melena (3) Hypotension Code(s): I95.9 - HYPOTENSION, UNSPECIFIED Qualifiers: Hypotension type: unspecified hypotension type Qualified Code(s): I95.9 - Hypotension, unspecified (4) Renal failure (ARF), acute on chronic Code(s): N17.9 - ACUTE KIDNEY FAILURE, UNSPECIFIED N18.9 - CHRONIC KIDNEY DISEASE, UNSPECIFIED (5) Respiratory acidosis Code(s): E87.2 - ACIDOSIS (6) Respiratory failure Code(s): J96.90 - RESPIRATORY FAILURE, UNSP, UNSP W HYPOXIA OR HYPERCAPNIA Qualifiers: Chronicity: acute (7) Septic shock Code(s): A41.9 - SEPSIS, UNSPECIFIED ORGANISM R65.21 - SEVERE SEPSIS WITH SEPTIC SHOCK Assessment/Plan having diarrhea selena abx induced check for c diff f/u labs today renal function better d/c sue today ? cystoscopy to be planned if pt agrees will follow
[2017-01-18] MEDS: PANTOPRAZOLE SODIUM 40 MG in SODIUM CHLORIDE 100 ML IVPB SCH (10:52)
[2017-01-18] MEDS: AMOX TR/POT CLAV 875MG/125MG TABLETS (FP) PO SCH ×2 (10:53→18:50)
[2017-01-18] MEDS: CARBAMIDE PEROXIDE 6.5% OTIC 15 ML BOTTLE AD SCH ×2 (10:53→21:37)
[2017-01-18] MEDS: ENOXAPARIN NA (PORCINE) 120 MG/0.8 ML DISP.SYRIN SQ SCH (10:58)
[2017-01-18 11:37] LABS: MCH 30.4 pg (25.7-33.7); MCHC 32.1 g/dl (32.0-35.9); MEAN CELL VOLUME 94.8 fl (80-96); MEAN PLT VOLUME 6.4 fl (7.5-11.1); PLATELET COUNT 156 K/MM3 (134-434); RDW 15.9 % (11.9-15.9); WHITE BLOOD COUNT 6.2 K/mm3 (4.0-10.0)
[2017-01-18 12:06] LABS: ALBUMIN 2.4 g/dl (3.4-5.0); ANION GAP 4 (8-16); BILIRUBIN,TOTAL 0.5 mg/dL (0.2-1.0); CALCIUM 8.2 mg/dL (8.5-10.1); CO2 30 mmol/L (21-32); CREATININE 0.8 mg/dL (0.7-1.3); GLUCOSE,RANDOM 106 mg/dL (74-106); SGOT/AST 12 U/L (15-37); SGPT/ALT 10 U/L (12-78); TOT PROT 5.5 g/dl (6.4-8.2)
[2017-01-18 12:07] LABS: ALK PHOS 46 U/L (45-117)
[2017-01-18 12:47] LABS: METAMYELOCYTE 1 % (0-2); PLATELET COMMENT2 NO CLOTTING DETECTED; PLATELET COMMENT3 FEW LARGE PLTS; PLATELET ESTIMATE ADEQUATE (NORMAL); TOTAL CELLS COUNTED 100
[2017-01-18] MEDS: SODIUM CHLORIDE 1,000 ML IV SCH (19:09)
[2017-01-19] MEDS: ALBUTEROL SO4 2.5/IPRATROPIUM 0.5 INH SOL 3 ML VIAL.NEB. NEB SCH ×5 (06:41→23:47)
[2017-01-19 07:31] LABS: MCH 30.6 pg (25.7-33.7); MCHC 32.4 g/dl (32.0-35.9); MEAN CELL VOLUME 94.5 fl (80-96); MEAN PLT VOLUME 6.8 fl (7.5-11.1); PLATELET COUNT 143 K/MM3 (134-434); RDW 15.2 % (11.9-15.9); WHITE BLOOD COUNT 5.9 K/mm3 (4.0-10.0)
[2017-01-19 07:48] LABS: INR 1.34 (0.82-1.09); PROTHROMBIN TIME (PATIENT) 14.8 SEC (9.98-11.88)
[2017-01-19 08:01] LABS: ALBUMIN 2.3 g/dl (3.4-5.0); ANION GAP 6 (8-16); BILIRUBIN,TOTAL 0.4 mg/dL (0.2-1.0); CALCIUM 8.1 mg/dL (8.5-10.1); CO2 29 mmol/L (21-32); CREATININE 0.6 mg/dL (0.7-1.3); GLUCOSE,RANDOM 88 mg/dL (74-106); MAGNESIUM 1.8 mg/dL (1.8-2.4); PHOSPHOROUS 2.4 mg/dL (2.5-4.9); SGOT/AST 13 U/L (15-37); SGPT/ALT 8 U/L (12-78)
[2017-01-19 08:02] LABS: ALK PHOS 42 U/L (45-117); TOT PROT 5.1 g/dl (6.4-8.2)
[2017-01-19 08:55] LABS: PLATELET ESTIMATE ADEQUATE (NORMAL); TOTAL CELLS COUNTED 100
[2017-01-19 08:56] LABS: METAMYELOCYTE 4 % (0-2); MYELOCYTE 3 % (0-2)
[2017-01-19 08:57] LABS: MACROCYTOSIS 1+; POLYCHROMASIA 1+
[2017-01-19] MEDS ORDERED: PT OWN MED DRAWER 7, Y5N ONE (09:45)
[2017-01-19] MEDS: CARBAMIDE PEROXIDE 6.5% OTIC 15 ML BOTTLE AD SCH ×2 (10:47→21:17)
[2017-01-19] MEDS: AMOX TR/POT CLAV 875MG/125MG TABLETS (FP) PO SCH ×2 (10:47→18:17)
[2017-01-19] MEDS: PANTOPRAZOLE SODIUM 40 MG in SODIUM CHLORIDE 100 ML IVPB SCH (10:48)
--- NOTE | 2017-01-19 10:48 | PN ---
Progress Note (short form) - Note Progress Note: Awake and alert. Denies CP or SOB. RN reports that after sue was removed there was some clotted blood in his groin. He has no discomfort over his suprapubic area and is voiding. NAD on NC O2. Intake & Output 01/16/17 01/17/17 01/18/17 01/19/17 23:59 23:59 23:59 23:59 Intake Total 1058 1318 1162 630 Output Total 3000 1850 1500 Balance -1942 -532 -338 630 Weight 246 lb 7 oz Last Vital Signs Temp Pulse Resp BP Pulse Ox 99.1 F 77 18 128/68 99 01/19/17 09:56 01/19/17 09:56 01/19/17 09:56 01/19/17 09:56 01/18/17 21:00 Active Medications Albuterol/Ipratropium (Duoneb -) 1 amp NEB QIDR [facility] Last Admin: 01/19/17 06:42 Dose: Not Given Amoxicillin/Clavulanate Potassium (Augmentin - 875mg Tablet) 1 tab PO BID@0800, 1730 [facility] Last Admin: 01/18/17 18:50 Dose: 1 tab Carbamide Perox/Anhydrous Glycerin (Debrox -) 5 drop AD BID [facility] Last Admin: 01/18/17 21:37 Dose: 5 drop Sodium Chloride (Normal Saline -) 1,000 mls @ 42 mls/hr IV ASDIR [facility] Last Admin: 01/18/17 19:09 Dose: 42 mls/hr Pantoprazole Sodium 40 mg/ (Sodium Chloride) 100 mls @ 200 mls/hr IVPB DAILY [facility] Last Admin: 01/18/17 10:52 Dose: 200 mls/hr Constitutional: Yes: NAD, Calm Eyes: Yes: WNL HENT: Yes: WNL Neck: Yes: WNL Cardiovascular: Yes: Pulse Irregular, S1, S2 Respiratory: Yes: Diminished Gastrointestinal: Yes: Normal Bowel Sounds, Soft, NT, ND Extremities: Yes: WNL Edema: No Labs: Laboratory Results - last 24 hr 01/18/17 01/18/17 01/19/17 11:15 11:15 06:10 WBC 6.2 5.9 RBC 3.18 L 2.95 L Hgb 9.7 L 9.0 L Hct 30.2 L 27.8 L MCV 94.8 94.5 MCH 30.4 30.6 MCHC 32.1 32.4 RDW 15.9 15.2 Plt Count 156 143 MPV 6.4 L 6.8 L Total Counted 100 100 Neutrophils % No Result Required. Electromechanical Inspector Neutrophils % (Manual) 81 77 Band Neuts % (Manual) 3 D 4 D Lymphocytes % No Result Required. Electromechanical Inspector Lymphocytes % (Manual) 9 6 L D Monocytes % Electromechanical Inspector Monocytes % (Manual) 6 5 Eosinophils % Electromechanical Inspector Eosinophils % (Manual) 1 1 Basophils % Electromechanical Inspector Myelocytes % (Man) 3 H Platelet Estimate Adequate Adequate Platelet Comment No clotting detected RBC Morphology Y Polychromasia 1+ Basophilic Stippling Few Macrocytosis 1+ Rouleaux F PT with INR INR Sodium 143 Potassium 4.2 Chloride 109 H Carbon Dioxide 30 Anion Gap 4 L BUN 20 H D Creatinine 0.8 D Creat Clearance w eGFR > 60 Random Glucose 106 Calcium 8.2 L Phosphorus Magnesium Total Bilirubin 0.5 AST 12 L ALT 10 L Alkaline Phosphatase 46 Total Protein 5.5 L Albumin 2.4 L 01/19/17 01/19/17 06:10 06:10 WBC RBC Hgb Hct MCV MCH MCHC RDW Plt Count MPV Total Counted Neutrophils % Neutrophils % (Manual) Band Neuts % (Manual) Lymphocytes % Lymphocytes % (Manual) Monocytes % Monocytes % (Manual) Eosinophils % Eosinophils % (Manual) Basophils % Myelocytes % (Man) Platelet Estimate Platelet Comment RBC Morphology Polychromasia Basophilic Stippling Macrocytosis Rouleaux PT with INR 14.80 H INR 1.34 H Sodium 145 Potassium 4.4 Chloride 110 H Carbon Dioxide 29 Anion Gap 6 L BUN 15 D Creatinine 0.6 L D Creat Clearance w eGFR > 60 Random Glucose 88 Calcium 8.1 L Phosphorus 2.4 L D Magnesium 1.8 Total Bilirubin 0.4 AST 13 L ALT 8 L Alkaline Phosphatase 42 L Total Protein 5.1 L Albumin 2.3 L Problem List - Problems (1) Acidosis Code(s): E87.2 - ACIDOSIS (2) Renal failure (ARF), acute on chronic Code(s): N17.9 - ACUTE KIDNEY FAILURE, UNSPECIFIED N18.9 - CHRONIC KIDNEY DISEASE, UNSPECIFIED (3) Respiratory failure Code(s): J96.90 - RESPIRATORY FAILURE, UNSP, UNSP W HYPOXIA OR HYPERCAPNIA Qualifiers: Chronicity: acute (4) Septic shock Code(s): A41.9 - SEPSIS, UNSPECIFIED ORGANISM R65.21 - SEVERE SEPSIS WITH SEPTIC SHOCK (5) Afib Code(s): I48.91 - UNSPECIFIED ATRIAL FIBRILLATION Assessment/Plan Acute Hypoxic and Hypercapneic Respiratory Failure improved Pneumonia clinically improved Atelectasis UTI Septic Shock resolved Acute Kidney Injury 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
--- NOTE | 2017-01-19 11:52 | PN ---
Progress Note (short form) - Note Progress Note: pt feels ok. denies pain urine better diarrhea better afebrile discussed with pts Niece yesterday in detail pt agreeable now to egd/ cystoscopy Vital Signs Temp 97.8 F 01/19/17 11:01 Pulse 94 H 01/19/17 11:01 Resp 18 01/19/17 11:01 BP 119/65 01/19/17 11:01 Pulse Ox 99 01/18/17 21:00 Intake & Output 01/18/17 01/18/17 01/19/17 11:59 23:59 11:59 Intake Total 712 450 630 Output Total 1000 500 Balance -288 -50 630 Intake: IV 462 480 Normal Saline - 1,000 ml 462 480 @ 42 mls/hr IV ASDIR [facility] Rx#:[id number] Oral 250 450 150 Output: Urine 1000 500 Concepcion 1000 500 Other: Voiding Method Diaper Diaper Diaper # Unmeasured Voids Concepcion 1 2 Bowel Movement Yes: green,yellow loose No # Bowel Movements 1 Active Medications Albuterol/Ipratropium (Duoneb -) 1 amp NEB QIDR [facility] Last Admin: 01/19/17 06:42 Dose: Not Given Amoxicillin/Clavulanate Potassium (Augmentin - 875mg Tablet) 1 tab PO BID@0800, 1730 [facility] Last Admin: 01/19/17 10:47 Dose: 1 tab Carbamide Perox/Anhydrous Glycerin (Debrox -) 5 drop AD BID [facility] Last Admin: 01/19/17 10:47 Dose: 5 drop Sodium Chloride (Normal Saline -) 1,000 mls @ 42 mls/hr IV ASDIR [facility] Last Admin: 01/18/17 19:09 Dose: 42 mls/hr Pantoprazole Sodium 40 mg/ (Sodium Chloride) 100 mls @ 200 mls/hr IVPB DAILY [facility] Last Admin: 01/19/17 10:48 Dose: 200 mls/hr CBC, BMP 01/19/17 06:10 01/19/17 06:10 Physical Exam. Constitutional: Yes: No Distress, comfortable. Cardiovascular: Yes: Regular Rate and Rhythm, Murmur Respiratory: Yes: Diminished at bases Gastrointestinal: Yes: Normal Bowel Sounds, Soft, Abdomen, Obese. No: Distention, Tenderness Edema: Yes Edema: LLE: Trace, RLE: Trace Psychiatric: Yes: Alert, Oriented Problem List - Problems (1) Acidosis Code(s): E87.2 - ACIDOSIS (2) GI bleed Code(s): K92.2 - GASTROINTESTINAL HEMORRHAGE, UNSPECIFIED Qualifiers: GI bleed type/associated pathology: melena Qualified Code(s): K92.1 - Melena (3) Hypotension Code(s): I95.9 - HYPOTENSION, UNSPECIFIED Qualifiers: Hypotension type: unspecified hypotension type Qualified Code(s): I95.9 - Hypotension, unspecified (4) Renal failure (ARF), acute on chronic Code(s): N17.9 - ACUTE KIDNEY FAILURE, UNSPECIFIED N18.9 - CHRONIC KIDNEY DISEASE, UNSPECIFIED (5) Respiratory acidosis Code(s): E87.2 - ACIDOSIS (6) Respiratory failure Code(s): J96.90 - RESPIRATORY FAILURE, UNSP, UNSP W HYPOXIA OR HYPERCAPNIA Qualifiers: Chronicity: acute (7) Septic shock Code(s): A41.9 - SEPSIS, UNSPECIFIED ORGANISM R65.21 - SEVERE SEPSIS WITH SEPTIC SHOCK Assessment/Plan better c diff -ve h/h stable labs noted gi/ urology to follow discussed with nursing staff also. will follow.
[2017-01-19] MEDS: SODIUM CHLORIDE 1,000 ML IV SCH (18:21)
[2017-01-20] MEDS: ALBUTEROL SO4 2.5/IPRATROPIUM 0.5 INH SOL 3 ML VIAL.NEB. NEB SCH ×3 (06:40→17:29)
[2017-01-20 06:57] LABS: MCH 30.5 pg (25.7-33.7); MCHC 32.4 g/dl (32.0-35.9); MEAN CELL VOLUME 94.2 fl (80-96); MEAN PLT VOLUME 6.8 fl (7.5-11.1); PLATELET COUNT 147 K/MM3 (134-434); RDW 15.2 % (11.9-15.9); WHITE BLOOD COUNT 7.4 K/mm3 (4.0-10.0)
[2017-01-20] MEDS: AMOX TR/POT CLAV 875MG/125MG TABLETS (FP) PO SCH ×2 (08:15→17:30)
--- NOTE | 2017-01-20 09:12 | PN ---
Progress Note (short form) - Note Progress Note: pt seen/examined. feels well. no complains no diarrhea Denies pain. afebrile Vital Signs Temp 98.4 F 01/20/17 08:37 Pulse 117 H 01/20/17 08:38 Resp 20 01/20/17 08:37 BP 142/71 01/20/17 08:37 Pulse Ox 99 01/19/17 21:00 Intake & Output 01/19/17 01/19/17 01/20/17 11:59 23:59 11:59 Intake Total 630 706 460 Balance 630 706 460 Intake: IV 480 336 460 Normal Saline - 1,000 ml 480 336 460 @ 42 mls/hr IV ASDIR [facility] Rx#:[id number] IVPB 100 Oral 150 270 Other: Voiding Method Diaper Incontinent Incontinent # Unmeasured Voids Concepcion 2 2 Void 2 Bowel Movement No Yes Yes # Bowel Movements 1 1 Active Medications Albuterol/Ipratropium (Duoneb -) 1 amp NEB QIDR [facility] Last Admin: 01/20/17 06:40 Dose: 1 amp Amoxicillin/Clavulanate Potassium (Augmentin - 875mg Tablet) 1 tab PO BID@0800, 1730 [facility] Last Admin: 01/20/17 08:15 Dose: 1 tab Carbamide Perox/Anhydrous Glycerin (Debrox -) 5 drop AD BID [facility] Last Admin: 01/19/17 21:17 Dose: 5 drop Sodium Chloride (Normal Saline -) 1,000 mls @ 42 mls/hr IV ASDIR [facility] Last Admin: 01/19/17 18:21 Dose: 42 mls/hr Pantoprazole Sodium 40 mg/ (Sodium Chloride) 100 mls @ 200 mls/hr IVPB DAILY [facility] Last Admin: 01/19/17 10:48 Dose: 200 mls/hr Metoprolol Tartrate (Lopressor -) 25 mg PO BID [facility] CBC, BMP 01/20/17 05:50 01/19/17 06:10 Physical Exam. Constitutional: Yes: No Distress, comfortable. Cardiovascular: Yes: Irregular Respiratory: Yes: Diminished at bases. Gastrointestinal: Yes: Normal Bowel Sounds, Soft, Abdomen, Obese. No: Distention, Tenderness Edema: Yes Edema: Trace Psychiatric: Yes: Alert, Oriented Problem List - Problems (1) Acidosis Code(s): E87.2 - ACIDOSIS (2) GI bleed Code(s): K92.2 - GASTROINTESTINAL HEMORRHAGE, UNSPECIFIED Qualifiers: GI bleed type/associated pathology: melena Qualified Code(s): K92.1 - Melena (3) Hypotension Code(s): I95.9 - HYPOTENSION, UNSPECIFIED Qualifiers: Hypotension type: unspecified hypotension type Qualified Code(s): I95.9 - Hypotension, unspecified (4) Renal failure (ARF), acute on chronic Code(s): N17.9 - ACUTE KIDNEY FAILURE, UNSPECIFIED N18.9 - CHRONIC KIDNEY DISEASE, UNSPECIFIED (5) Respiratory acidosis Code(s): E87.2 - ACIDOSIS (6) Respiratory failure Code(s): J96.90 - RESPIRATORY FAILURE, UNSP, UNSP W HYPOXIA OR HYPERCAPNIA Qualifiers: Chronicity: acute (7) Septic shock Code(s): A41.9 - SEPSIS, UNSPECIFIED ORGANISM R65.21 - SEVERE SEPSIS WITH SEPTIC SHOCK Assessment/Plan stable h/h stable still unable to hear tachy -- irregular start on b amy cardiology consult gi/ urology to follow
[2017-01-20] MEDS ORDERED: PT OWN MED DRAWER 7, Y5N ONE (10:02)
[2017-01-20] MEDS: PANTOPRAZOLE SODIUM 40 MG in SODIUM CHLORIDE 100 ML IVPB SCH (10:16)
[2017-01-20] MEDS: METOPROLOL TARTRATE 25 MG TABLET (FP) PO SCH ×2 (10:16→21:04)
[2017-01-20] MEDS: CARBAMIDE PEROXIDE 6.5% OTIC 15 ML BOTTLE AD SCH ×2 (10:17→21:04)
--- NOTE | 2017-01-20 10:34 | CON.CARD ---
Consult Consult Specialty:: Cardiology Referred by:: Dr. Bull Reason for Consultation:: H/o Afib, mechanical AVR, adm with GI bleed and hematuria with supratherapeutic INR - History of Present Illness Chief Complaint: weakness, ams, sob, bleeding History of Present Illness: 86 year old man with a history of a Mechanical AVR and aortic aneurysm repair, afib, on coumadin, HTN, CHF, h/o GI bleed admitted with AMS, hypotension, supratherapeutic INR, GI and bleeding, possible sepsis. Pt seen and examined today in nad. Pt lost hearing on admission, uncertain etiology. communicated through writing on pad. States he is feeling better. denies chest pain, sob, palpitations. - History Source History Provided By: Patient, Medical Record Limitations to Obtaining History: Physical Impairment - Past Medical History Cardio/Vascular: Yes: AFIB, Aneurysm (h/o aortic aneurysm repair), Aortic Stenosis (s/p AVR), CHF, HTN, Other (h/o mechanical AVR) Gastrointestinal: Yes: GI Bleed Renal/: Yes: Renal Failure ENT: Yes: Other (hearing loss) - Alcohol/Substance Use Hx Alcohol Use: Yes (60mL gin daily) - Smoking History Smoking history: Current every day smoker Aproximately how many cigarettes per day: 10 - Social History Usual Living Arrangement: Assisted ([facility]) History of Recent Travel: No Home Medications - Allergies Allergies/Adverse Reactions: Allergies Allergy/AdvReac Type Severity Reaction Status Date / Time No Known Allergies Allergy Verified 01/13/17 18:29 - Home Medications Home Medications: Ambulatory Orders Enalapril Maleate [Vasotec -] 10 mg PO DAILY 01/13/17 Ferrous Sulfate 325 mg PO BID 01/13/17 Folic Acid 1 mg PO DAILY 01/13/17 Guaifenesin [Mucinex] 600 mg PO BID 01/13/17 Pantoprazole Sodium 40 mg PO DAILY 01/13/17 Potassium Chloride [K-Tab ER] 10 meq PO DAILY 01/13/17 Simvastatin 40 mg PO HS 01/13/17 Sucralfate [Carafate -] 1 gm PO AC 01/13/17 Warfarin Na [Coumadin] 5 mg PO DAILY 01/13/17 Family Disease History - Family Disease History Family History: Denies Review of Systems - Review of Systems Constitutional: reports: Malaise, Weakness. denies: No Symptoms, Chills, Diaphoresis, Fever, Lethargy, Loss of Appetite, Night Sweats, Unintentional Wgt. Loss, Other Eyes: denies: No Symptoms, Blind Spots, Blurred Vision, Double Vision, Eye Pain , Floaters, Photophobia, Recent Change in Vision, Other HENT: denies: No Symptoms, Difficult Swallowing, Ear Discharge, Ear Pain, Epistaxis, Gingival Bleeding, Hearing Loss, Mouth Swelling, Nasal Congestion, Ocular Prosthesis, Throat Pain, Toothache, Ringing in Ears, Other Neck: denies: No Symptoms, Decreased ROM, Lumps, Pain on Movement, Stiffness, Swollen Glands, Tenderness, Other Cardiovascular: denies: No Symptoms, Chest Pain, Edema, Palpitations, Shortness of Breath, Other Respiratory: reports: Cough. denies: No Symptoms, Exercise Intolerance, Hemoptysis, Orthopnea, PND, Snoring, SOB, SOB on Exertion, Wheezing, Other Gastrointestinal: denies: No Symptoms, Abdominal Pain, Bloating, Constipation, Diarrhea, Dysphagia, Indigestion, Melena, Nausea, Rectal Bleeding, Vomiting, Vomiting Blood, Other Genitourinary: denies: No Symptoms, Burning, Discharge, Dysuria, Flank Pain, Frequency, Hematuria, Incontinence, Lesions, Menses, Pain, Testicular Mass, Testicular Pain, Testicular Swelling, Urgency, Vaginal Bleeding, Other Breasts: denies: No Symptoms Reported, See HPI, Breast Implants, Discharge from Nipple, Lumps, Pain, Skin Changes, Other Musculoskeletal: denies: No Symptoms, Back Pain, Crepitus, Decreased ROM, Extremity Pain, Joint Pain, Joint Swelling, Muscle Pain, Muscle Cramps, Muscle Weakness, Other Integumentary: denies: No Symptoms, Blister, Bruising, Change in Color, Eczema, Erythema, Incision, Lesions, Lump, Pallor, Pruritis, Rash, Wound, Other Neurological: reports: Change in LOC. denies: No Symptoms, Change in Speech, Confusion, Dizziness, Headache, Incoordination, Numbness, Parasthesia, Pre- Existing Deficit, Seizure, Syncope, Tremors, Unsteady Gait, Weakness, Other Endocrine: denies: No Symptoms, Excessive Sweating, Flushing, Increased Hunger, Increased Thirst, Intolerance to Cold, Intolerance to Heat, Unexplained Weight Gain, Unexplained Weight Loss, Other Hematology/Lymphatic: denies: No Symptoms, Easily Bruised, Excessive Bleeding, Swollen Glands, Other Psychiatric: denies: No Symptoms, Altered Sleep Pattern, Anxiety, Depression, Hallucinations, Panic, Paranoia, Suicidal, Other - Risk Factors Known Risk Factors: Yes: Age, Hypercholesterolemia, Hypertension Vital Signs: Vital Signs Temperature 98.4 F 01/20/17 08:37 Pulse Rate 82 01/20/17 09:57 Respiratory Rate 20 01/20/17 08:37 Blood Pressure 142/71 01/20/17 08:37 O2 Sat by Pulse Oximetry (%) 96 01/20/17 09:57 Constitutional: Yes: No Distress, Calm Eyes: Yes: Conjunctiva Clear, EOM Intact, PERRL HENT: Yes: Atraumatic, Normocephalic Neck: Yes: Supple, Trachea Midline Respiratory: Yes: Regular, Diminished, Rhonchi. No: Rales, SOB, Wheezes Gastrointestinal: Yes: Normal Bowel Sounds, Soft. No: Distention, Tenderness Cardiovascular: Yes: Pulse Irregular, Other (mechanical valve sound davina). No : Bradycardia, Tachycardia, Gallop, Rub, Varicosities JVD: No Carotid Bruit: No PMI: Non-Displaced Heart Sounds: Yes: S1, S2, Clicks. No: Split S2, S3, S4, Gallop, Rub, Bruit Murmur: Yes: Systolic Murmur. No: Diastolic Murmur Musculoskeletal: Yes: Muscle Weakness Extremities: Yes: WNL Edema: LLE: Trace, RLE: Trace Peripheral Pulses WNL: Yes Peripheral Pulses: 2+ Left Doralis Pedis, 2+ Right Dorsalis Pedis Neurological: Yes: Alert, Oriented, Other (loss of hearing) Psychiatric: Yes: Alert, Oriented - Other Data Labs, Other Data: CBC, BMP 01/20/17 05:50 01/19/17 06:10 INR, PTT INR 1.34 (0.82-1.09) H 01/19/17 06:10 ekg-AFib 92bpm, RBBB, nonspecific St abnl Echo: Report Reviewed Imaging - Results Chest X-ray: Report Reviewed, Image Reviewed EKG: Report Reviewed, Image Reviewed Other: Report Reviewed, Image Reviewed Assessment/Plan 86 year old man with a history of a Mechanical AVR and aortic aneurysm repair, afib, on coumadin, HTN, CHF, h/o GI bleed admitted with AMS, hypotension, supratherapeutic INR, GI and bleeding, possible sepsis. Mechanical AVR/Afib -admitted with a supratherapeutic INR and GI/ bleeding -H/H has been stable -given mechanical AVR and afib, high risk for CVA vs valve thrombosis when off AC -as H/H has been stable will start heparin gtt without a bolus and monitor on full AC for any further signs of bleeding or drop in H/H, if remains stable and if no further procedures planned can then attempt to start warfarin at a lower dose for a goal INR 2-3 but closer to 2 -GI and f/up -echo report reviewed, AVR not well visualized, gradient not significantly elevated Cardiomyopathy -echo report reviewed, tech difficult study, read as at least mod segmental LV dysfunction, AVR not well visualized -pt not sig volume overloaded, required IVF for hypotension -for now hold lasix -cont metoprolol for cardiomyopathy, aneursym, and afib -hold KAEL-I/ARB for now
--- NOTE | 2017-01-20 11:20 | PN ---
Progress Note (short form) - Note Progress Note: PULMONARY States breathing is better. Mild nonproductive cough. No fevers or chills. Remains with hearing loss. Last Vital Signs Temp Pulse Resp BP Pulse Ox 98.4 F 82 20 142/71 96 01/20/17 08:37 01/20/17 09:57 01/20/17 08:37 01/20/17 08:37 01/20/17 09:57 Gen: NAD at rest Heart: RRR, +click Lung: decreased breath sounds at the bases Abd: soft, nontender Ext: less edema CBC, BMP 01/20/17 05:50 01/19/17 06:10 Active Medications Albuterol/Ipratropium (Duoneb -) 1 amp NEB QIDR [facility] Last Admin: 01/20/17 06:40 Dose: 1 amp Amoxicillin/Clavulanate Potassium (Augmentin - 875mg Tablet) 1 tab PO BID@0800, 1730 [facility] Last Admin: 01/20/17 08:15 Dose: 1 tab Carbamide Perox/Anhydrous Glycerin (Debrox -) 5 drop AD BID [facility] Last Admin: 01/20/17 10:17 Dose: 5 drop Sodium Chloride (Normal Saline -) 1,000 mls @ 42 mls/hr IV ASDIR [facility] Last Admin: 01/19/17 18:21 Dose: 42 mls/hr Pantoprazole Sodium 40 mg/ (Sodium Chloride) 100 mls @ 200 mls/hr IVPB DAILY [facility] Last Admin: 01/20/17 10:16 Dose: 200 mls/hr Metoprolol Tartrate (Lopressor -) 25 mg PO BID [facility] Last Admin: 01/20/17 10:16 Dose: 25 mg A/P Acute Hypoxic and Hypercapneic Respiratory Failure improved Pneumonia clinically improved Atelectasis UTI Septic Shock resolved Acute Kidney Injury 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
[2017-01-20] MEDS ORDERED: HEPARIN NA (PORCINE) 5,000 UNITS/ML 1ML VIAL IVPUSH PRN ×2 (12:46)
[2017-01-20] MEDS: HEPARIN INFUSION - 500 ML IVPB SCH (14:41)
[2017-01-20] MEDS: SODIUM CHLORIDE 1,000 ML IV SCH ×2 (15:08→21:28)
[2017-01-20 20:04] LABS: ACTIVATED PTT 42.4 SECONDS (26.9-34.4)
[2017-01-20 20:35] LABS: INR 1.36 (0.82-1.09); PROTHROMBIN TIME (PATIENT) 15.1 SEC (9.98-11.88)
[2017-01-21] MEDS: ALBUTEROL SO4 2.5/IPRATROPIUM 0.5 INH SOL 3 ML VIAL.NEB. NEB SCH ×3 (00:40→17:25)
--- NOTE | 2017-01-21 08:37 | PN ---
Progress Note (short form) - Note Progress Note: pt seen/ examined no complains Had discussed with Dr. Jacques yesterday Agreed to start on heparin with caution as bleeding has stopped and he has mechanical valve and carries high risk of thrombosis pt denies pain. no further bleeding comfortable Vital Signs Temp 98.2 F 01/21/17 05:47 Pulse 86 01/21/17 05:47 Resp 20 01/21/17 05:47 BP 128/66 01/21/17 05:47 Pulse Ox 94 L 01/20/17 20:23 Intake & Output 01/20/17 01/20/17 01/21/17 11:59 23:59 11:59 Intake Total 610 1032 690 Balance 610 1032 690 Weight 248 lb 12.8 oz Intake: IV 460 562 690 Normal Saline - 1,000 ml 460 462 450 @ 42 mls/hr IV ASDIR [facility] Rx#:[id number] Heparin Infusion - 500 ml 100 240 @ 1,000 UNITS/HR 20 mls/ hr IVPB TITR [facility] Rx#: [id number] IVPB 100 Oral 150 370 Other: Voiding Method Diaper Incontinent # Unmeasured Voids Concepcion 1 1 2 Bowel Movement Yes No # Bowel Movements 1 Weight Measurement Method Patient Lift Scale Active Medications Albuterol/Ipratropium (Duoneb -) 1 amp NEB QIDR [facility] Last Admin: 01/21/17 00:40 Dose: Not Given Carbamide Perox/Anhydrous Glycerin (Debrox -) 5 drop AD BID [facility] Last Admin: 01/20/17 21:04 Dose: 5 drop Heparin Sodium (Porcine) (Heparin -) 1,000 unit IVPUSH PRN PRN PRN Reason: Heparin Heparin Sodium (Porcine) (Heparin -) 5,000 unit IVPUSH PRN PRN PRN Reason: Heparin Sodium Chloride (Normal Saline -) 1,000 mls @ 42 mls/hr IV ASDIR [facility] Last Admin: 01/20/17 21:28 Dose: 42 mls/hr Pantoprazole Sodium 40 mg/ (Sodium Chloride) 100 mls @ 200 mls/hr IVPB DAILY [facility] Last Admin: 01/20/17 10:16 Dose: 200 mls/hr Heparin Sodium/Dextrose (Heparin Infusion -) 500 mls @ 20 mls/hr IVPB TITR [facility] ; 1,000 UNITS/HR PRN Reason: Protocol Last Titration: 01/20/17 20:55 Dose: 1,100 units/hr Metoprolol Tartrate (Lopressor -) 25 mg PO BID [facility] Last Admin: 01/20/17 21:04 Dose: 25 mg CARMEN STANFORD 01/20/17 05:50 01/19/17 06:10 Physical Exam. Constitutional: Yes: No Distress, comfortable. Cardiovascular: Yes: Irregular/ metallic click Respiratory: Yes: Diminished at bases. Gastrointestinal: Yes: Normal Bowel Sounds, Soft, Abdomen, Obese. No: Distention, Tenderness Edema: Yes Edema: Trace Psychiatric: Yes: Alert, Oriented Assessment/Plan Clinically stable h/h stable. continue heparin with caution. monitor cbc gi/ urology f/us pending discussed with nursing staff daily oob - chair will follow
--- NOTE | 2017-01-21 08:41 | PN ---
Progress Note (short form) - Note Progress Note: urine grossly clear no suprapubic tenderness on heparin will need cystoscopy, can be done electively as outpt provided no more episodes of hematuria
[2017-01-21] MEDS ORDERED: PT OWN MED DRAWER 7, Y5N ONE (09:14)
[2017-01-21] MEDS: CARBAMIDE PEROXIDE 6.5% OTIC 15 ML BOTTLE AD SCH ×2 (09:22→21:03)
[2017-01-21] MEDS: METOPROLOL TARTRATE 25 MG TABLET (FP) PO SCH ×2 (09:22→21:03)
--- NOTE | 2017-01-21 09:29 | PN ---
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 Jalloh [phone]. Explained that Fr. Simmons has a history of anemia (he last evaluated him at [facility] when his Hgb was 8.8), has had 4-5 EGD's and 4-5 colonoscopies. 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 There were no ulcers. He also has a history of diverticulosis from colonoscopy findings. He is currently being evaluated for ? bladder mass as well. Would defer endoscopic evaluation at this time for evaluation of overt bleeding in favor for evaluation of ? bladder findings. He likely will bleed intermittently from vascular ectasias that can be throughout the GI tract. His INR will need to be carefully monitored. Also, the need for alcohol cessation should be reenforced. Problem List - Problems (1) Anemia Code(s): D64.9 - ANEMIA, UNSPECIFIED
--- NOTE | 2017-01-21 09:39 | PN ---
Progress Note, Physician Chief Complaint: GI note reviewed - Current Medication List Current Medications: Active Medications Albuterol/Ipratropium (Duoneb -) 1 amp NEB QIDR [facility] Last Admin: 01/21/17 00:40 Dose: Not Given Carbamide Perox/Anhydrous Glycerin (Debrox -) 5 drop AD BID [facility] Last Admin: 01/21/17 09:22 Dose: 5 drop Heparin Sodium (Porcine) (Heparin -) 1,000 unit IVPUSH PRN PRN PRN Reason: Heparin Heparin Sodium (Porcine) (Heparin -) 5,000 unit IVPUSH PRN PRN PRN Reason: Heparin Sodium Chloride (Normal Saline -) 1,000 mls @ 42 mls/hr IV ASDIR [facility] Last Admin: 01/20/17 21:28 Dose: 42 mls/hr Heparin Sodium/Dextrose (Heparin Infusion -) 500 mls @ 20 mls/hr IVPB TITR JESSICA ; 1,000 UNITS/HR PRN Reason: Protocol Last Titration: 01/20/17 20:55 Dose: 1,100 units/hr Metoprolol Tartrate (Lopressor -) 25 mg PO BID [facility] Last Admin: 01/21/17 09:22 Dose: 25 mg Pantoprazole Sodium (Protonix -) 40 mg PO DAILY [facility] - Objective Vital Signs: Vital Signs Temperature 98.2 F 01/21/17 08:00 Pulse Rate 90 01/21/17 08:00 Respiratory Rate 20 01/21/17 08:00 Blood Pressure 129/72 01/21/17 08:00 O2 Sat by Pulse Oximetry (%) 94 L 01/20/17 20:23 Constitutional: Yes: No Distress Cardiovascular: Yes: Pulse Irregular, Other (mechanical S2) Respiratory: Yes: CTA Bilaterally Edema: No Labs: CBC, BMP 01/20/17 05:50 01/19/17 06:10 INR, PTT INR 1.36 (0.82-1.09) H 01/20/17 19:05 Laboratory Tests 01/19/17 01/20/17 01/21/17 06:10 05:50 06:00 WBC 7.4 Hgb 9.0 L Plt Count 147 PTT (Actin FS) 59.5 H Sodium 145 Potassium 4.4 Creatinine 0.6 L D Assessment/Plan 86 year old man with a history of a Mechanical AVR and aortic aneurysm repair, afib, on coumadin, HTN, CHF, h/o GI bleed admitted with AMS, hypotension, supratherapeutic INR, GI and bleeding, possible sepsis. REC: Difficult situation as he requires lifelong AC for AF and mechanical valve- there is no other option. If no endoscopic or evaluation is planned on this admission, would resume coumadin and plan to monitor INR and CBC weekly.
[2017-01-21] MEDS: PANTOPRAZOLE 40 MG TABLET (FP) PO SCH (09:44)
--- NOTE | 2017-01-21 10:57 | PN ---
Progress Note (short form) - Note Progress Note: PULMONARY Denies shortness of breath or chest pain. Mild nonproductive cough. No fevers or chills. Remains with hearing loss. Last Vital Signs Temp Pulse Resp BP Pulse Ox 98.2 F 90 20 129/72 94 L 01/21/17 08:00 01/21/17 08:00 01/21/17 08:00 01/21/17 08:00 01/20/17 20:23 Gen: NAD at rest Heart: RRR, +click Lung: decreased breath sounds at the bases Abd: soft, nontender Ext: less edema CBC, BMP 01/20/17 05:50 01/19/17 06:10 Active Medications Albuterol/Ipratropium (Duoneb -) 1 amp NEB QIDR [facility] Last Admin: 01/21/17 00:40 Dose: Not Given Carbamide Perox/Anhydrous Glycerin (Debrox -) 5 drop AD BID [facility] Last Admin: 01/21/17 09:22 Dose: 5 drop Heparin Sodium (Porcine) (Heparin -) 1,000 unit IVPUSH PRN PRN PRN Reason: Heparin Heparin Sodium (Porcine) (Heparin -) 5,000 unit IVPUSH PRN PRN PRN Reason: Heparin Sodium Chloride (Normal Saline -) 1,000 mls @ 42 mls/hr IV ASDIR [facility] Last Admin: 01/20/17 21:28 Dose: 42 mls/hr Heparin Sodium/Dextrose (Heparin Infusion -) 500 mls @ 20 mls/hr IVPB TITR JESSICA ; 1,000 UNITS/HR PRN Reason: Protocol Last Titration: 01/20/17 20:55 Dose: 1,100 units/hr Metoprolol Tartrate (Lopressor -) 25 mg PO BID [facility] Last Admin: 01/21/17 09:22 Dose: 25 mg Pantoprazole Sodium (Protonix -) 40 mg PO DAILY [facility] Last Admin: 01/21/17 09:44 Dose: 40 mg A/P Acute Hypoxic and Hypercapneic Respiratory Failure improved Pneumonia clinically improved Atelectasis UTI Septic Shock resolved Acute Kidney Injury 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
[2017-01-21] MEDS: HEPARIN INFUSION - 500 ML IVPB SCH (12:12)
--- NOTE | 2017-01-21 13:47 | PN ---
Progress Note (short form) - Note Progress Note: Renal follow up for JOE Pt seen and examined at the bedside awake and alert still cannot hear making urine no sob, chest pain Vital Signs Temperature 98.2 F 01/21/17 08:00 Pulse Rate 90 01/21/17 08:00 Respiratory Rate 20 01/21/17 08:00 Blood Pressure 129/72 01/21/17 08:00 O2 Sat by Pulse Oximetry (%) 96 01/21/17 09:00 Intake & Output 01/18/17 01/19/17 01/20/17 01/21/17 23:59 23:59 23:59 23:59 Intake Total 1162 1336 1642 690 Output Total 1500 Balance -338 1336 1642 690 Weight 248 lb 12.8 oz Gen: NAD, awake and alert ET Tbe in place CVS: RRR, No M/R Lungs: Dec BS left lung, no rales Abd: soft NT/ND Ext: No edema, clubbing or cyanosis CBC, BMP 01/20/17 05:50 01/19/17 06:10 Laboratory Tests 01/19/17 06:10 Phosphorus 2.4 L D Magnesium 1.8 Albumin 2.3 L Current Medications Albuterol/Ipratropium (Duoneb -) 1 amp NEB QIDR [facility] Last Admin: 01/21/17 00:40 Dose: Not Given Carbamide Perox/Anhydrous Glycerin (Debrox -) 5 drop AD BID [facility] Last Admin: 01/21/17 09:22 Dose: 5 drop Heparin Sodium (Porcine) (Heparin -) 1,000 unit IVPUSH PRN PRN PRN Reason: Heparin Heparin Sodium (Porcine) (Heparin -) 5,000 unit IVPUSH PRN PRN PRN Reason: Heparin Heparin Sodium/Dextrose (Heparin Infusion -) 500 mls @ 20 mls/hr IVPB TITR JESSICA ; 1,000 UNITS/HR PRN Reason: Protocol Last Admin: 01/21/17 12:12 Dose: 22 mls/hr Metoprolol Tartrate (Lopressor -) 25 mg PO BID [facility] Last Admin: 01/21/17 09:22 Dose: 25 mg Pantoprazole Sodium (Protonix -) 40 mg PO DAILY [facility] Last Admin: 01/21/17 09:44 Dose: 40 mg A/P 86 year old gentleman with PMhx of Afib on Coumadin, CHF, Hypertension, AAA repair, AVR, GI bleed who presented from [facility] with hypotension and AMS and found to have Melena/GI bleed with JOE and hyperkalmeia. #Acute Anuric Renal Failure with hx of CKD (? baseline Cr) with Hyperkalemia no new chemistry today will send labs now off IVF trend BUN/Cr #Hematuria sue discontinued pt voiding for outpatient cysto #Hypophospahtemia will check levels today oral diet as tolerated Ludwig Storm DO Problem List - Problems (1) Acidosis Code(s): E87.2 - ACIDOSIS (2) GI bleed Code(s): K92.2 - GASTROINTESTINAL HEMORRHAGE, UNSPECIFIED Qualifiers: Qualified Code(s): K92.1 - Melena (3) Hematuria Code(s): R31.9 - HEMATURIA, UNSPECIFIED Qualifiers: Qualified Code(s): R31.9 - Hematuria, unspecified (4) Hypotension Code(s): I95.9 - HYPOTENSION, UNSPECIFIED Qualifiers: Qualified Code(s): I95.9 - Hypotension, unspecified (5) Renal failure (ARF), acute on chronic Code(s): N17.9 - ACUTE KIDNEY FAILURE, UNSPECIFIED N18.9 - CHRONIC KIDNEY DISEASE, UNSPECIFIED (6) Respiratory failure Code(s): J96.90 - RESPIRATORY FAILURE, UNSP, UNSP W HYPOXIA OR HYPERCAPNIA
[2017-01-21 15:35] LABS: ANION GAP 5 (8-16); CALCIUM 8.3 mg/dL (8.5-10.1); CO2 33 mmol/L (21-32); CREATININE 0.7 mg/dL (0.7-1.3); GLUCOSE,RANDOM 109 mg/dL (74-106); MAGNESIUM 1.6 mg/dL (1.8-2.4); PHOSPHOROUS 2.5 mg/dL (2.5-4.9)
[2017-01-22 07:32] LABS: BASOPHIL 0.2 % (0-2.0); EOSINOPHIL 5.3 % (0-4.5); MCH 30.4 pg (25.7-33.7); MCHC 32.5 g/dl (32.0-35.9); MEAN CELL VOLUME 93.5 fl (80-96); MEAN PLT VOLUME 6.9 fl (7.5-11.1); PLATELET COUNT 158 K/MM3 (134-434); RDW 14.9 % (11.9-15.9); WHITE BLOOD COUNT 6.3 K/mm3 (4.0-10.0)
[2017-01-22 07:54] LABS: ALBUMIN 2.1 g/dl (3.4-5.0); ANION GAP 3 (8-16); CALCIUM 8.1 mg/dL (8.5-10.1); CO2 32 mmol/L (21-32); CREATININE 0.7 mg/dL (0.7-1.3); GLUCOSE,RANDOM 87 mg/dL (74-106); PHOSPHOROUS 2.5 mg/dL (2.5-4.9); SGOT/AST 14 U/L (15-37); SGPT/ALT 8 U/L (12-78)
[2017-01-22 07:55] LABS: ALK PHOS 42 U/L (45-117); BILIRUBIN,TOTAL 0.4 mg/dL (0.2-1.0); TOT PROT 5.1 g/dl (6.4-8.2)
--- NOTE | 2017-01-22 09:00 | PN ---
Progress Note, Physician Chief Complaint: comfortable - Current Medication List Current Medications: Active Medications Carbamide Perox/Anhydrous Glycerin (Debrox -) 5 drop AD BID [facility] Last Admin: 01/21/17 21:03 Dose: 5 drop Heparin Sodium (Porcine) (Heparin -) 1,000 unit IVPUSH PRN PRN PRN Reason: Heparin Heparin Sodium (Porcine) (Heparin -) 5,000 unit IVPUSH PRN PRN PRN Reason: Heparin Heparin Sodium/Dextrose (Heparin Infusion -) 500 mls @ 20 mls/hr IVPB TITR JESSICA ; 1,000 UNITS/HR PRN Reason: Protocol Last Admin: 01/21/17 12:12 Dose: 22 mls/hr Metoprolol Tartrate (Lopressor -) 25 mg PO BID [facility] Last Admin: 01/21/17 21:03 Dose: 25 mg Pantoprazole Sodium (Protonix -) 40 mg PO DAILY [facility] Last Admin: 01/21/17 09:44 Dose: 40 mg Warfarin Sodium (Coumadin -) 5 mg PO DAILY@1800 [facility] - Objective Vital Signs: Vital Signs Temperature 98.6 F 01/22/17 05:00 Pulse Rate 84 01/22/17 05:00 Respiratory Rate 20 01/22/17 05:00 Blood Pressure 123/61 01/22/17 05:00 O2 Sat by Pulse Oximetry (%) 96 01/21/17 20:57 Constitutional: Yes: No Distress Cardiovascular: Yes: Regular Rate and Rhythm ([facility] S2) Respiratory: Yes: CTA Bilaterally Gastrointestinal: Yes: Soft Edema: No Neurological: Yes: Alert, Oriented Labs: CBC, BMP 01/22/17 06:00 01/22/17 06:00 INR, PTT INR 1.36 (0.82-1.09) H 01/20/17 19:05 Laboratory Tests 01/22/17 01/22/17 01/22/17 06:00 06:00 06:00 WBC 6.3 Hgb 8.9 L Plt Count 158 PTT (Actin FS) 63.5 H Potassium 4.0 Creatinine 0.7 Assessment/Plan Assessment/Plan 86 year old man with a history of a Mechanical AVR and aortic aneurysm repair, afib, on coumadin, HTN, CHF, h/o GI bleed admitted with AMS, hypotension, supratherapeutic INR, GI and bleeding, possible sepsis. REC: Difficult situation as he requires lifelong AC for AF and mechanical valve- coumadin resumed. Can D/C heparin when INR 2-3. Monitor CBC daily.
[2017-01-22] MEDS ORDERED: PT OWN MED DRAWER 7, Y5N ONE ×2 (09:27→21:20)
[2017-01-22] MEDS: PANTOPRAZOLE 40 MG TABLET (FP) PO SCH (09:33)
[2017-01-22] MEDS: METOPROLOL TARTRATE 25 MG TABLET (FP) PO SCH ×2 (09:33→21:30)
[2017-01-22] MEDS: HEPARIN INFUSION - 500 ML IVPB SCH ×2 (09:34→16:08)
[2017-01-22] MEDS: CARBAMIDE PEROXIDE 6.5% OTIC 15 ML BOTTLE AD SCH ×2 (09:34→21:30)
--- NOTE | 2017-01-22 10:48 | PN ---
Progress Note, Physician Chief Complaint: no complaints no GI bleeding - Current Medication List Current Medications: Active Medications Carbamide Perox/Anhydrous Glycerin (Debrox -) 5 drop AD BID [facility] Last Admin: 01/22/17 09:34 Dose: 5 drop Heparin Sodium (Porcine) (Heparin -) 1,000 unit IVPUSH PRN PRN PRN Reason: Heparin Heparin Sodium (Porcine) (Heparin -) 5,000 unit IVPUSH PRN PRN PRN Reason: Heparin Heparin Sodium/Dextrose (Heparin Infusion -) 500 mls @ 20 mls/hr IVPB TITR JESSICA ; 1,000 UNITS/HR PRN Reason: Protocol Last Admin: 01/22/17 09:34 Dose: 22 mls/hr Metoprolol Tartrate (Lopressor -) 25 mg PO BID [facility] Last Admin: 01/22/17 09:33 Dose: 25 mg Pantoprazole Sodium (Protonix -) 40 mg PO DAILY [facility] Last Admin: 01/22/17 09:33 Dose: 40 mg Warfarin Sodium (Coumadin -) 5 mg PO DAILY@1800 [facility] - Objective Vital Signs: Vital Signs Temperature 98.6 F 01/22/17 05:00 Pulse Rate 84 01/22/17 05:00 Respiratory Rate 20 01/22/17 05:00 Blood Pressure 123/61 01/22/17 05:00 O2 Sat by Pulse Oximetry (%) 96 01/21/17 20:57 Constitutional: Yes: No Distress Cardiovascular: Yes: Pulse Irregular Respiratory: Yes: Diminished Gastrointestinal: Yes: Normal Bowel Sounds, Soft, Abdomen, Obese. No: Distention, Tenderness Edema: Yes Labs: CBC, BMP 01/22/17 06:00 01/22/17 06:00 INR, PTT INR 1.36 (0.82-1.09) H 01/20/17 19:05 Problem List - Problems (1) Acidosis Code(s): E87.2 - ACIDOSIS (2) GI bleed Code(s): K92.2 - GASTROINTESTINAL HEMORRHAGE, UNSPECIFIED Qualifiers: Qualified Code(s): K92.1 - Melena (3) Hypotension Code(s): I95.9 - HYPOTENSION, UNSPECIFIED Qualifiers: Qualified Code(s): I95.9 - Hypotension, unspecified (4) Renal failure (ARF), acute on chronic Code(s): N17.9 - ACUTE KIDNEY FAILURE, UNSPECIFIED N18.9 - CHRONIC KIDNEY DISEASE, UNSPECIFIED (5) Respiratory acidosis Code(s): E87.2 - ACIDOSIS (6) Respiratory failure Code(s): J96.90 - RESPIRATORY FAILURE, UNSP, UNSP W HYPOXIA OR HYPERCAPNIA (7) Septic shock Code(s): A41.9 - SEPSIS, UNSPECIFIED ORGANISM R65.21 - SEVERE SEPSIS WITH SEPTIC SHOCK Assessment/Plan A/P mechanical AVR Afib HTN Bladder mass GI bleeding-- resolved hemorrhagic disorder due to extrinsic agent-- anticoagulation ,supratherpeutic INR -- start coumadin today monitor INR - on Heparin drip also no bleeding work up for mass in bladder as outpt per check CBC spoke with Cardiology PT arnold
--- NOTE | 2017-01-22 11:36 | PN ---
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
--- NOTE | 2017-01-22 14:40 | PN ---
Progress Note (short form) - Note Progress Note: Renal follow up for JOE Pt seen and examined at the bedside no acute complaints no overnight events on hepari gtt Vital Signs Temperature 98.3 F 01/22/17 09:00 Pulse Rate 75 01/22/17 09:00 Respiratory Rate 20 01/22/17 09:00 Blood Pressure 127/86 01/22/17 09:00 O2 Sat by Pulse Oximetry (%) 97 01/22/17 09:00 Intake & Output 01/19/17 01/20/17 01/21/17 01/22/17 23:59 23:59 23:59 23:59 Intake Total 1336 1642 1214 250 Balance 1336 1642 1214 250 Weight 248 lb 12.8 oz 249 lb 1.6 oz Gen: NAD, awake and alert ET Tbe in place CVS: RRR, No M/R Lungs: Dec BS left lung, no rales Abd: soft NT/ND Ext: No edema, clubbing or cyanosis CBC, BMP 01/22/17 06:00 01/22/17 06:00 Current Medications Carbamide Perox/Anhydrous Glycerin (Debrox -) 5 drop AD BID [facility] Last Admin: 01/22/17 09:34 Dose: 5 drop Heparin Sodium (Porcine) (Heparin -) 1,000 unit IVPUSH PRN PRN PRN Reason: Heparin Heparin Sodium (Porcine) (Heparin -) 5,000 unit IVPUSH PRN PRN PRN Reason: Heparin Heparin Sodium/Dextrose (Heparin Infusion -) 500 mls @ 20 mls/hr IVPB TITR JESSICA ; 1,000 UNITS/HR PRN Reason: Protocol Last Admin: 01/22/17 09:34 Dose: 22 mls/hr Metoprolol Tartrate (Lopressor -) 25 mg PO BID [facility] Last Admin: 01/22/17 09:33 Dose: 25 mg Pantoprazole Sodium (Protonix -) 40 mg PO DAILY [facility] Last Admin: 01/22/17 09:33 Dose: 40 mg Warfarin Sodium (Coumadin -) 5 mg PO DAILY@1800 JESSICA A/P 86 year old gentleman with PMhx of Afib on Coumadin, CHF, Hypertension, AAA repair, AVR, GI bleed who presented from [facility] with hypotension and AMS and found to have Melena/GI bleed with JOE and hyperkalmeia. #Acute Anuric Renal Failure with hx of CKD (? baseline Cr) with Hyperkalemia Renal function improved and stable K is within normal limits off IVF pt is voiding w/o catheter would trend BUN/Cr as inpatient #Hematuria no gross hematuria at the present time Outpatient cysto H/H stable Ludwig Storm DO Problem List - Problems (1) Acidosis Code(s): E87.2 - ACIDOSIS (2) GI bleed Code(s): K92.2 - GASTROINTESTINAL HEMORRHAGE, UNSPECIFIED Qualifiers: GI bleed type/associated pathology: melena Qualified Code(s): K92.1 - Melena (3) Hematuria Code(s): R31.9 - HEMATURIA, UNSPECIFIED Qualifiers: Hematuria type: unspecified type Qualified Code(s): R31.9 - Hematuria, unspecified (4) Hypotension Code(s): I95.9 - HYPOTENSION, UNSPECIFIED Qualifiers: Hypotension type: unspecified hypotension type Qualified Code(s): I95.9 - Hypotension, unspecified (5) Renal failure (ARF), acute on chronic Code(s): N17.9 - ACUTE KIDNEY FAILURE, UNSPECIFIED N18.9 - CHRONIC KIDNEY DISEASE, UNSPECIFIED (6) Respiratory failure Code(s): J96.90 - RESPIRATORY FAILURE, UNSP, UNSP W HYPOXIA OR HYPERCAPNIA Qualifiers: Chronicity: acute
[2017-01-22] MEDS: WARFARIN NA 5 MG TABLET (UD) PO SCH (17:20)
[2017-01-23 07:23] LABS: BASOPHIL 0.2 % (0-2.0); EOSINOPHIL 4.6 % (0-4.5); MCH 30.2 pg (25.7-33.7); MCHC 32.5 g/dl (32.0-35.9); MEAN CELL VOLUME 93.1 fl (80-96); MEAN PLT VOLUME 7.1 fl (7.5-11.1); NEUTROPHILS 76.9 % (42.8-82.8); PLATELET COUNT 176 K/MM3 (134-434); RDW 15.1 % (11.9-15.9); WHITE BLOOD COUNT 5.5 K/mm3 (4.0-10.0)
[2017-01-23 07:52] LABS: ANION GAP 4 (8-16); CALCIUM 8.2 mg/dL (8.5-10.1); CO2 33 mmol/L (21-32); CREATININE 0.7 mg/dL (0.7-1.3); GLUCOSE,RANDOM 90 mg/dL (74-106); PHOSPHOROUS 2.5 mg/dL (2.5-4.9)
[2017-01-23 08:03] LABS: ACTIVATED PTT 62.2 SECONDS (26.9-34.4)
[2017-01-23] MEDS: HEPARIN INFUSION - 500 ML IVPB SCH ×2 (08:38→17:12)
[2017-01-23] MEDS ORDERED: PT OWN MED DRAWER 7, Y5N ONE (09:43)
[2017-01-23] MEDS: PANTOPRAZOLE 40 MG TABLET (FP) PO SCH (09:44)
[2017-01-23] MEDS: METOPROLOL TARTRATE 25 MG TABLET (FP) PO SCH ×2 (09:44→21:02)
[2017-01-23] MEDS: CARBAMIDE PEROXIDE 6.5% OTIC 15 ML BOTTLE AD SCH ×2 (09:44→21:03)
--- NOTE | 2017-01-23 10:17 | PN ---
Progress Note, Physician History of Present Illness: seen and examined today in [facility]. awake and alert. frustrated with having to stay in the hospital. still cannot hear. no overnight events. no new complaints. - Current Medication List Current Medications: Active Medications Carbamide Perox/Anhydrous Glycerin (Debrox -) 5 drop AD BID [facility] Last Admin: 01/23/17 09:44 Dose: 5 drop Heparin Sodium (Porcine) (Heparin -) 1,000 unit IVPUSH PRN PRN PRN Reason: Heparin Heparin Sodium (Porcine) (Heparin -) 5,000 unit IVPUSH PRN PRN PRN Reason: Heparin Heparin Sodium/Dextrose (Heparin Infusion -) 500 mls @ 20 mls/hr IVPB TITR JESSICA ; 1,000 UNITS/HR PRN Reason: Protocol Last Admin: 01/23/17 08:38 Dose: 22 mls/hr Metoprolol Tartrate (Lopressor -) 25 mg PO BID [facility] Last Admin: 01/23/17 09:44 Dose: 25 mg Pantoprazole Sodium (Protonix -) 40 mg PO DAILY [facility] Last Admin: 01/23/17 09:44 Dose: 40 mg Warfarin Sodium (Coumadin -) 5 mg PO DAILY@1800 [facility] Last Admin: 01/22/17 17:20 Dose: 5 mg - Objective Vital Signs: Vital Signs Temperature 98.1 F 01/23/17 05:54 Pulse Rate 89 01/23/17 05:54 Respiratory Rate 20 01/23/17 05:54 Blood Pressure 119/63 01/23/17 05:54 O2 Sat by Pulse Oximetry (%) 99 01/22/17 21:00 Constitutional: Yes: No Distress, Calm, Obese Eyes: Yes: Conjunctiva Clear, EOM Intact, PERRL HENT: Yes: Atraumatic, Normocephalic, Other (deafness) Neck: Yes: Supple, Trachea Midline Cardiovascular: Yes: Pulse Irregular, Murmur, S1, S2, Other (mechanical AVR sound heard). No: Regular Rate and Rhythm, Bradycardia, Tachycardia, Bruit, JVD , Gallop, Rub, S3, S4, Varicosities Respiratory: Yes: Regular, Diminished. No: Rales, Rhonchi, SOB, Wheezes Gastrointestinal: Yes: Normal Bowel Sounds, Soft. No: Distention, Tenderness Edema: LLE: Trace, RLE: Trace Peripheral Pulses WNL: Yes Neurological: Yes: Alert, Oriented, Other (deaf) Psychiatric: Yes: Alert, Oriented Labs: CBC, BMP 01/23/17 06:00 01/23/17 06:00 INR, PTT INR 1.36 (0.82-1.09) H 01/20/17 19:05 - ....Imaging Chest X-ray: Report Reviewed, Image Reviewed EKG: Report Reviewed, Image Reviewed Other: Report Reviewed, Image Reviewed Assessment/Plan 86 year old man with a history of a Mechanical AVR and aortic aneurysm repair, afib, on coumadin, HTN, CHF, h/o GI bleed admitted with AMS, hypotension, supratherapeutic INR, GI and bleeding, possible sepsis. Mechanical AVR/Afib -requires lifelong AC especially for mechanical AVR -cont heparin bridge to coumadin. (Goal INR for both mech AVR and Afib is 2-3) would target maintaining closer to 2 than 3 given bleeding -admitted with a supratherapeutic INR and GI/ bleeding thus his outpatient dose will likely need to be reduced -monitor for bleeding and monitor H/H -GI f/up appreciated - to consider outpatient cystoscopy -echo report reviewed, AVR not well visualized, gradient not significantly elevated Cardiomyopathy -echo report reviewed, tech difficult study, read as at least mod segmental LV dysfunction, AVR not well visualized -intravascular depletion on admission likely a combination of bleeding and sepsis, required IVF -still not sig volume overloaded, hold diuresis a this point -cont metoprolol for cardiomyopathy, aneursym, and afib -hold KAEL-I/ARB for now given elevated creatinine on admission and BP in normal range
--- NOTE | 2017-01-23 10:21 | PN ---
Progress Note (short form) - Note Progress Note: PULMONARY Denies shortness of breath or chest pain. Remains with hearing loss. Last Vital Signs Temp Pulse Resp BP Pulse Ox 98.1 F 89 20 119/63 99 01/23/17 05:54 01/23/17 05:54 01/23/17 05:54 01/23/17 05:54 01/22/17 21:00 Gen: NAD at rest Heart: RRR, +click Lung: decreased breath sounds at the bases Abd: soft, nontender Ext: less edema CBC, BMP 01/23/17 06:00 01/23/17 06:00 Active Medications Carbamide Perox/Anhydrous Glycerin (Debrox -) 5 drop AD BID [facility] Last Admin: 01/23/17 09:44 Dose: 5 drop Heparin Sodium (Porcine) (Heparin -) 1,000 unit IVPUSH PRN PRN PRN Reason: Heparin Heparin Sodium (Porcine) (Heparin -) 5,000 unit IVPUSH PRN PRN PRN Reason: Heparin Heparin Sodium/Dextrose (Heparin Infusion -) 500 mls @ 20 mls/hr IVPB TITR JESSICA ; 1,000 UNITS/HR PRN Reason: Protocol Last Admin: 01/23/17 08:38 Dose: 22 mls/hr Metoprolol Tartrate (Lopressor -) 25 mg PO BID [facility] Last Admin: 01/23/17 09:44 Dose: 25 mg Pantoprazole Sodium (Protonix -) 40 mg PO DAILY [facility] Last Admin: 01/23/17 09:44 Dose: 40 mg Warfarin Sodium (Coumadin -) 5 mg PO DAILY@1800 [facility] Last Admin: 01/22/17 17:20 Dose: 5 mg A/P Acute Hypoxic and Hypercapneic Respiratory Failure improved Pneumonia clinically improved Atelectasis UTI Septic Shock resolved Acute Kidney Injury 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
[2017-01-23 10:45] LABS: INR 1.52 (0.82-1.09); PROTHROMBIN TIME (PATIENT) 16.9 SEC (9.98-11.88)
--- NOTE | 2017-01-23 10:54 | PN ---
Progress Note, Physician Chief Complaint: no complaints no GI bleeding still has difficulty hearing-- communication is through written notes - Current Medication List Current Medications: Active Medications Carbamide Perox/Anhydrous Glycerin (Debrox -) 5 drop AD BID [facility] Last Admin: 01/23/17 09:44 Dose: 5 drop Heparin Sodium (Porcine) (Heparin -) 1,000 unit IVPUSH PRN PRN PRN Reason: Heparin Heparin Sodium (Porcine) (Heparin -) 5,000 unit IVPUSH PRN PRN PRN Reason: Heparin Heparin Sodium/Dextrose (Heparin Infusion -) 500 mls @ 20 mls/hr IVPB TITR JESSICA ; 1,000 UNITS/HR PRN Reason: Protocol Last Admin: 01/23/17 08:38 Dose: 22 mls/hr Metoprolol Tartrate (Lopressor -) 25 mg PO BID [facility] Last Admin: 01/23/17 09:44 Dose: 25 mg Pantoprazole Sodium (Protonix -) 40 mg PO DAILY [facility] Last Admin: 01/23/17 09:44 Dose: 40 mg Warfarin Sodium (Coumadin -) 5 mg PO DAILY@1800 [facility] Last Admin: 01/22/17 17:20 Dose: 5 mg - Objective Vital Signs: Vital Signs Temperature 98.6 F 01/23/17 10:00 Pulse Rate 88 01/23/17 10:00 Respiratory Rate 20 01/23/17 10:00 Blood Pressure 115/54 01/23/17 10:00 O2 Sat by Pulse Oximetry (%) 96 01/23/17 09:00 Constitutional: Yes: No Distress Cardiovascular: Yes: Pulse Irregular, Murmur Respiratory: Yes: Diminished Gastrointestinal: Yes: Normal Bowel Sounds, Soft, Abdomen, Obese. No: Distention, Tenderness Edema: Yes (decreased) Psychiatric: Yes: Alert, Oriented Labs: CBC, BMP 01/23/17 06:00 01/23/17 06:00 INR, PTT INR 1.52 (0.82-1.09) H 01/23/17 06:00 Problem List - Problems (1) Acidosis Code(s): E87.2 - ACIDOSIS (2) GI bleed Code(s): K92.2 - GASTROINTESTINAL HEMORRHAGE, UNSPECIFIED Qualifiers: GI bleed type/associated pathology: melena Qualified Code(s): K92.1 - Melena (3) Hypotension Code(s): I95.9 - HYPOTENSION, UNSPECIFIED Qualifiers: Hypotension type: unspecified hypotension type Qualified Code(s): I95.9 - Hypotension, unspecified (4) Renal failure (ARF), acute on chronic Code(s): N17.9 - ACUTE KIDNEY FAILURE, UNSPECIFIED N18.9 - CHRONIC KIDNEY DISEASE, UNSPECIFIED (5) Respiratory acidosis Code(s): E87.2 - ACIDOSIS (6) Respiratory failure Code(s): J96.90 - RESPIRATORY FAILURE, UNSP, UNSP W HYPOXIA OR HYPERCAPNIA Qualifiers: Chronicity: acute (7) Septic shock Code(s): A41.9 - SEPSIS, UNSPECIFIED ORGANISM R65.21 - SEVERE SEPSIS WITH SEPTIC SHOCK (8) Hemorrhagic disorder due to extrinsic circulating anticoagulants Code(s): D68.32 - HEMORRHAGIC DISORD D/T EXTRINSIC CIRCULATING ANTICOAGULANTS Assessment/Plan A/P mechanical AVR Afib HTN Bladder mass GI bleeding-- resolved hemorrhagic disorder due to extrinsic agent-- anticoagulation ,supratherpeutic INR -- on coumadin along with heparin infusion monitor INR no bleeding work up for mass in bladder as outpt per CBC stable PT eval
[2017-01-23 11:34] LABS: MAGNESIUM 1.3 mg/dL (1.8-2.4)
--- NOTE | 2017-01-23 16:36 | PN ---
Progress Note (short form) - Note Progress Note: Renal follow up for JOE Pt seen and examined at the bedside awake and alert stil remains very hard of hearing no acute complaints (no sob, cp, abd pain) making good urine Vital Signs Temperature 98.7 F 01/23/17 14:15 Pulse Rate 94 H 01/23/17 14:15 Respiratory Rate 20 01/23/17 14:15 Blood Pressure 109/65 01/23/17 14:15 O2 Sat by Pulse Oximetry (%) 96 01/23/17 09:00 Intake & Output 01/20/17 01/21/17 01/22/17 01/23/17 23:59 23:59 23:59 23:59 Intake Total 1642 1214 714 618 Balance 1642 1214 714 618 Weight 248 lb 12.8 oz 249 lb 1.6 oz 248 lb 12.8 oz Gen: NAD, awake and alert ET Tbe in place CVS: RRR, No M/R Lungs: Dec BS left lung, no rales Abd: soft NT/ND Ext: No edema, clubbing or cyanosis CBC, BMP 01/23/17 06:00 01/23/17 06:00 Current Medications Carbamide Perox/Anhydrous Glycerin (Debrox -) 5 drop AD BID JESSICA Last Admin: 01/23/17 09:44 Dose: 5 drop Heparin Sodium (Porcine) (Heparin -) 1,000 unit IVPUSH PRN PRN PRN Reason: Heparin Heparin Sodium (Porcine) (Heparin -) 5,000 unit IVPUSH PRN PRN PRN Reason: Heparin Heparin Sodium/Dextrose (Heparin Infusion -) 500 mls @ 20 mls/hr IVPB TITR JESSICA ; 1,000 UNITS/HR PRN Reason: Protocol Last Admin: 01/23/17 08:38 Dose: 22 mls/hr Metoprolol Tartrate (Lopressor -) 25 mg PO BID [facility] Last Admin: 01/23/17 09:44 Dose: 25 mg Pantoprazole Sodium (Protonix -) 40 mg PO DAILY JESSICA Last Admin: 01/23/17 09:44 Dose: 40 mg Warfarin Sodium (Coumadin -) 5 mg PO DAILY@1800 JESSICA Last Admin: 01/22/17 17:20 Dose: 5 mg A/P 86 year old gentleman with PMhx of Afib on Coumadin, CHF, Hypertension, AAA repair, AVR, GI bleed who presented from [facility] with hypotension and AMS and found to have Melena/GI bleed with JOE and hyperkalmeia. #Acute Anuric Renal Failure with hx of CKD (? baseline Cr) with Hyperkalemia Renal function stable and improved voiding w/o catheter and w/o gross hematuria #Hematuria no gross hematuria at the present time Outpatient cysto H/H stable Ludwig Storm Problem List - Problems (1) Acidosis Code(s): E87.2 - ACIDOSIS (2) GI bleed Code(s): K92.2 - GASTROINTESTINAL HEMORRHAGE, UNSPECIFIED Qualifiers: GI bleed type/associated pathology: melena Qualified Code(s): K92.1 - Melena (3) Hematuria Code(s): R31.9 - HEMATURIA, UNSPECIFIED Qualifiers: Hematuria type: unspecified type Qualified Code(s): R31.9 - Hematuria, unspecified (4) Hypotension Code(s): I95.9 - HYPOTENSION, UNSPECIFIED Qualifiers: Hypotension type: unspecified hypotension type Qualified Code(s): I95.9 - Hypotension, unspecified (5) Renal failure (ARF), acute on chronic Code(s): N17.9 - ACUTE KIDNEY FAILURE, UNSPECIFIED N18.9 - CHRONIC KIDNEY DISEASE, UNSPECIFIED (6) Respiratory failure Code(s): J96.90 - RESPIRATORY FAILURE, UNSP, UNSP W HYPOXIA OR HYPERCAPNIA Qualifiers: Chronicity: acute
[2017-01-23] MEDS: WARFARIN NA 5 MG TABLET (UD) PO SCH (17:12)
[2017-01-24 07:32] LABS: MCH 30.5 pg (25.7-33.7); MCHC 33.1 g/dl (32.0-35.9); MEAN CELL VOLUME 92.1 fl (80-96); MEAN PLT VOLUME 7.3 fl (7.5-11.1); PLATELET COUNT 187 K/MM3 (134-434); RDW 14.8 % (11.9-15.9)
[2017-01-24] MEDS: HEPARIN INFUSION - 500 ML IVPB SCH (07:46)
--- NOTE | 2017-01-24 08:55 | PN ---
Progress Note, Physician Chief Complaint: no acute distress wants to go home - Current Medication List Current Medications: Active Medications Carbamide Perox/Anhydrous Glycerin (Debrox -) 5 drop AD BID [facility] Last Admin: 01/23/17 21:03 Dose: 5 drop Heparin Sodium (Porcine) (Heparin -) 1,000 unit IVPUSH PRN PRN PRN Reason: Heparin Heparin Sodium (Porcine) (Heparin -) 5,000 unit IVPUSH PRN PRN PRN Reason: Heparin Heparin Sodium/Dextrose (Heparin Infusion -) 500 mls @ 20 mls/hr IVPB TITR JESSICA ; 1,000 UNITS/HR PRN Reason: Protocol Last Admin: 01/24/17 07:46 Dose: 22 mls/hr Metoprolol Tartrate (Lopressor -) 25 mg PO BID [facility] Last Admin: 01/23/17 21:02 Dose: 25 mg Pantoprazole Sodium (Protonix -) 40 mg PO DAILY [facility] Last Admin: 01/23/17 09:44 Dose: 40 mg Warfarin Sodium (Coumadin -) 5 mg PO DAILY@1800 [facility] Last Admin: 01/23/17 17:12 Dose: 5 mg - Objective Vital Signs: Vital Signs Temperature 98.1 F 01/24/17 05:22 Pulse Rate 69 01/24/17 05:22 Respiratory Rate 20 01/24/17 05:22 Blood Pressure 155/89 01/24/17 05:22 O2 Sat by Pulse Oximetry (%) 97 01/23/17 20:59 Constitutional: Yes: No Distress Cardiovascular: Yes: Regular Rate and Rhythm Respiratory: Yes: CTA Bilaterally Gastrointestinal: Yes: Soft Labs: CBC, BMP 01/24/17 06:00 01/23/17 06:00 INR, PTT INR 1.52 (0.82-1.09) H 01/23/17 06:00 Laboratory Tests 01/23/17 01/23/17 01/24/17 06:00 06:00 06:00 WBC 4.0 Hct 26.8 L Plt Count 187 INR 1.52 H PTT (Actin FS) Potassium 4.0 Creatinine 0.7 Phosphorus 2.5 01/24/17 06:00 WBC Hct Plt Count INR PTT (Actin FS) 66.5 H Potassium Creatinine Phosphorus Assessment/Plan Assessment/Plan 86 year old man with a history of a Mechanical AVR and aortic aneurysm repair, afib, on coumadin, HTN, CHF, h/o GI bleed admitted with AMS, hypotension, supratherapeutic INR, GI and bleeding, possible sepsis. Mechanical AVR/Afib -requires lifelong AC especially for mechanical AVR -cont heparin bridge to coumadin. (Goal INR for both mech AVR and Afib is 2-3) would target maintaining closer to 2 than 3 given bleeding -admitted with a supratherapeutic INR and GI/ bleeding thus his outpatient dose will likely need to be reduced -monitor for bleeding and monitor H/H -GI f/up appreciated - to consider outpatient cystoscopy Cardiomyopathy -echo report reviewed, tech difficult study, read as at least mod segmental LV dysfunction, AVR not well visualized -still not sig volume overloaded, hold diuresis a this point -cont metoprolol for cardiomyopathy, aneursym, and afib -hold KAEL-I/ARB for now given elevated creatinine on admission and BP in normal range
[2017-01-24] MEDS: PANTOPRAZOLE 40 MG TABLET (FP) PO SCH (10:02)
[2017-01-24] MEDS: METOPROLOL TARTRATE 25 MG TABLET (FP) PO SCH (10:02)
[2017-01-24] MEDS: CARBAMIDE PEROXIDE 6.5% OTIC 15 ML BOTTLE AD SCH (10:10)
[2017-01-24 10:11] LABS: INR 2.01 (0.82-1.09); PROTHROMBIN TIME (PATIENT) 22.4 SEC (9.98-11.88)
--- NOTE | 2017-01-24 10:51 | PN ---
Progress Note (short form) - Note Progress Note: pt seen/ examined. chart reviewed. comfortable denies pain wants to go home. no further bleeding gi/ gu f/us noted no egd planned -- monitor. gu recommends cystoscopy as out pt. Vital Signs Temp 98.1 F 01/24/17 05:22 Pulse 61 01/24/17 10:29 Resp 20 01/24/17 05:22 BP 155/89 01/24/17 05:22 Pulse Ox 93 L 01/24/17 10:29 Intake & Output 01/23/17 01/23/17 01/24/17 11:59 23:59 11:59 Intake Total 154 514 250 Balance 154 514 250 Weight 248 lb 12.8 oz 249 lb 6 oz Intake: IV 154 264 250 Heparin Infusion 500 ml 154 264 250 running at 22ml/hr Oral 250 Other: Voiding Method Diaper Diaper Diaper # Unmeasured Voids Concepcion 3 1 Void 2 Bowel Movement Yes No # Bowel Movements 1 Weight Measurement Method Patient Lift Scale Patient Lift Scale Active Medications Carbamide Perox/Anhydrous Glycerin (Debrox -) 5 drop AD BID [facility] Last Admin: 01/24/17 10:10 Dose: 5 drop Heparin Sodium (Porcine) (Heparin -) 1,000 unit IVPUSH PRN PRN PRN Reason: Heparin Heparin Sodium (Porcine) (Heparin -) 5,000 unit IVPUSH PRN PRN PRN Reason: Heparin Heparin Sodium/Dextrose (Heparin Infusion -) 500 mls @ 20 mls/hr IVPB TITR JESSICA ; 1,000 UNITS/HR PRN Reason: Protocol Last Admin: 01/24/17 07:46 Dose: 22 mls/hr Metoprolol Tartrate (Lopressor -) 25 mg PO BID [facility] Last Admin: 01/24/17 10:02 Dose: 25 mg Pantoprazole Sodium (Protonix -) 40 mg PO DAILY [facility] Last Admin: 01/24/17 10:02 Dose: 40 mg Warfarin Sodium (Coumadin -) 5 mg PO DAILY@1800 [facility] Last Admin: 01/23/17 17:12 Dose: 5 mg CBC, BMP 01/24/17 06:00 01/23/17 06:00 INR - Pending. Physical Exam. Constitutional: Yes: No Distress/ comfortable Cardiovascular: Yes: Pulse Irregular, Murmur Respiratory: Yes: Diminished at bases Gastrointestinal: Yes: Normal Bowel Sounds, Soft, Abdomen, Obese. No: Distention, Tenderness Edema: Yes (decreased) Psychiatric: Yes: Alert and awake Assessment/Plan clinically stable mechanical AVR Afib HTN Bladder mass GI bleeding-- resolved hemorrhagic disorder due to extrinsic agent-- anticoagulation ,supratherpeutic INR -- on coumadin along with heparin infusion till inr therapeutic monitor INR no bleeding work up for mass in bladder as outpt per -- but will discuss with Dr. Worthington-- may be difficult as pt on heparin and coumadin and will need bridging. contine present care for now. will follow.
--- NOTE | 2017-01-24 13:27 | PN ---
Progress Note (short form) - Note Progress Note: PULMONARY RESTING COMFORTABLY/EATING LUNCH VSS ANICTERIC DIMINISHED ON LEFT S1S2 IRREG BS+ LESS EDEMA LABS/MEDS/NOTES/IMAGING/REVIEWED INR 2.01 Acute Hypoxic and Hypercapneic Respiratory Failure improved Pneumonia clinically improved Atelectasis UTI Septic Shock resolved Acute Kidney Injury likely Post-obstructive LV Systolic Dysfunction GI Bleed Hematuria Supratherapeutic INR Atrial Fibrillation h/o AVR - completed antibiotics - monitor urine output, creatinine - monitor H/H - protonix - continue anticoagulation target INR as per cardio - PO as tolerated - DVT/GI prophylaxsis Bronwyn ROCHA MD
--- NOTE | 2017-01-24 15:10 | DS ---
Physical Examination Vital Signs: Vital Signs Temperature 98.3 F 01/24/17 11:02 Pulse Rate 87 01/24/17 11:02 Respiratory Rate 18 01/24/17 11:02 Blood Pressure 137/69 01/24/17 11:02 O2 Sat by Pulse Oximetry (%) 93 L 01/24/17 10:29 Findings/Remarks: see today progress note Labs: CBC, BMP 01/24/17 06:00 01/23/17 06:00 Discharge Summary Reason For Visit: GASTROINTESTINAL HEMORRHAGE/RESPIRATORY ACIDOSIS Current Active Problems Acidosis (Acute) Afib (Acute) Anemia (Acute) GI bleed (Acute) Hearing loss (Acute) Hematuria (Acute) Hemorrhagic disorder due to circulating anticoagulants (Acute) Hemorrhagic disorder due to extrinsic circulating anticoagulants (Acute) Hypotension (Acute) Renal failure (ARF), acute on chronic (Acute) Respiratory acidosis (Acute) Respiratory failure (Acute) Septic shock (Acute) Hospital Course: 86 yrs old male sent from [facility] for altered mentation, bloody stools and hypotension. He was given fluid boluses in ER- placed on BIPAP but incubated later due to hypercapneic respiratory failure.He received FFP and PRBC as his INR was 6 and had GI bleeding. As per OR records-- pt is alert and oriented, drinks gin every night, had h/o GI bleed but replaced back on coumadin as he was stable and he had chronic persistent AFib. patient initially admitted to ICU---intubated Successfully extubated Transfused and given FFP's Patient stabilized Initially patient refused any workup like EGD--later on agreed By the time patient was stable--GI decided to postpone the procedure unless he bleeds again Patient also had developed hemuturea Ultrasound bladder showed questionable mass consult was taken--cystoscopy to be done as outpatient Patient also developed hearing loss--ENT consult was taken--to be further checked as outpatient by ENT Cardiology also following the patient due to history of metallic wall it was decided to restart on heparin and Coumadin as he has metallic valve-- and high risk of thrombosis patient remained stable on anticoagulation Now stable for discharge Will discharge her on lower dose of Coumadin and INR need to be monitored closely in the usp Medications reconciled Discharge time--- in examining coordinating care--40 minutes. Condition: Critical - Instructions Referrals: Roque Chandra MD [Primary Care Provider] - - Home Medications Comprehensive Discharge Medication List: Ambulatory Orders Ferrous Sulfate 325 mg PO BID 01/13/17 Folic Acid 1 mg PO DAILY 01/13/17 Pantoprazole Sodium 40 mg PO DAILY 01/13/17 Simvastatin 40 mg PO HS 01/13/17 Sucralfate [Carafate -] 1 gm PO AC 01/13/17 Carbamide Peroxide 6.5% [Debrox -] 5 drop AD BID bottle 01/24/17 Metoprolol Tartrate [Lopressor -] 25 mg PO BID tablet 01/24/17 Warfarin Sodium [Coumadin] 4 mg PO DAILY #30 tablet 01/24/17
[2017-01-24 15:13] VITALS: BP 108/55; PULSE 74; TEMP 98
--- NOTE | 2017-01-24 15:30 | PN ---
Progress Note, Physician Chief Complaint: The patient sen in his bed. Comfortable. Maintains good urine output. IV Heparin infusing. Very hard of hearing. No chest pain - Current Medication List Current Medications: Active Medications Carbamide Perox/Anhydrous Glycerin (Debrox -) 5 drop AD BID [facility] Last Admin: 01/24/17 10:10 Dose: 5 drop Metoprolol Tartrate (Lopressor -) 25 mg PO BID [facility] Last Admin: 01/24/17 10:02 Dose: 25 mg Pantoprazole Sodium (Protonix -) 40 mg PO DAILY [facility] Last Admin: 01/24/17 10:02 Dose: 40 mg Warfarin Sodium (Coumadin -) 5 mg PO DAILY@1800 [facility] Last Admin: 01/23/17 17:12 Dose: 5 mg - Objective Vital Signs: Vital Signs Temperature 98.0 F 01/24/17 15:11 Pulse Rate 74 01/24/17 15:11 Respiratory Rate 18 01/24/17 15:11 Blood Pressure 108/55 01/24/17 15:11 O2 Sat by Pulse Oximetry (%) 93 L 01/24/17 10:29 Constitutional: Yes: Well Nourished, No Distress, Pallor Eyes: Yes: Conjunctiva Clear HENT: Yes: Atraumatic Cardiovascular: Yes: S1, S2 Respiratory: Yes: CTA Bilaterally, Diminished Gastrointestinal: Yes: Normal Bowel Sounds, Abdomen, Obese Genitourinary: No: CVA Tenderness - Left Musculoskeletal: Yes: Back Pain Extremities: Yes: Delayed Capillary Refill, Erythema Neurological: Yes: Alert, Oriented Labs: CBC, BMP 01/24/17 06:00 01/23/17 06:00 INR, PTT INR 2.01 (0.82-1.09) H D 01/24/17 09:55 Problem List - Problems (1) Afib Code(s): I48.91 - UNSPECIFIED ATRIAL FIBRILLATION (2) Anemia Code(s): D64.9 - ANEMIA, UNSPECIFIED (3) GI bleed Code(s): K92.2 - GASTROINTESTINAL HEMORRHAGE, UNSPECIFIED Qualifiers: GI bleed type/associated pathology: melena Qualified Code(s): K92.1 - Melena (4) Hearing loss Code(s): H91.90 - UNSPECIFIED HEARING LOSS, UNSPECIFIED EAR Qualifiers: Hearing loss type: unspecified Laterality: unspecified laterality Qualified Code(s): H91.90 - Unspecified hearing loss, unspecified ear (5) Hematuria Code(s): R31.9 - HEMATURIA, UNSPECIFIED Qualifiers: Hematuria type: unspecified type Qualified Code(s): R31.9 - Hematuria, unspecified (6) Renal failure (ARF), acute on chronic Code(s): N17.9 - ACUTE KIDNEY FAILURE, UNSPECIFIED N18.9 - CHRONIC KIDNEY DISEASE, UNSPECIFIED Assessment/Plan 86 year old gentleman with PMhx of Afib on Coumadin, CHF, Hypertension, AAA repair, AVR, GI bleed who presented with hypotension and AMS and found to have Melena/GI bleed with JOE and hyperkalmeia. Acute Anuric Renal Failure with hx of CKD Renal function stable and improved voiding w/o catheter and w/o gross hematuria. Maintains good urine output. Hematuria no gross hematuria at the present time Outpatient cysto Anemia: H/H stable. Will follow with you. Myrna Cruz MD
[2017-01-24] MEDS ORDERED: WARFARIN NA 5 MG TABLET (UD) PO ONE (16:30)
[2017-01-24] MEDS: WARFARIN NA 5 MG TABLET (UD) PO SCH (17:08)
== END 2017-01-24 17:23 | DRG 813 ==
LOC: EDBD 18:18 → JER 18:18 → JERBED 21:45 → JICU 01-14 → J7W 01-16 19:36
PROVIDERS: ADMIT Internal Medicine; ATTEND Internal Medicine
PROC: 0BH17EZ Insertion of Endotracheal Airway into Trachea, Via Natural or Artificial Opening (ICD-10-PCS; principal; 2017-01-13)
PROC: 5A1935Z Respiratory Ventilation, Less than 24 Consecutive Hours (ICD-10-PCS; 2017-01-13)
PROC: 5A09357 Assistance with Respiratory Ventilation, Less than 24 Consecutive Hours, Continuous Positive Airway Pressure (ICD-10-PCS; 2017-01-13)
PROC: 30233H1 Transfusion of Nonautologous Whole Blood into Peripheral Vein, Percutaneous Approach (ICD-10-PCS; 2017-01-14)
PROC: 30233K1 Transfusion of Nonautologous Frozen Plasma into Peripheral Vein, Percutaneous Approach (ICD-10-PCS; 2017-01-14)
DX: D68.32 Hemorrhagic disorder due to extrinsic circulating anticoagulants (principal); J96.02 Acute respiratory failure with hypercapnia; J18.9 Pneumonia, unspecified organism; A41.9 Sepsis, unspecified organism; R65.21 Severe sepsis with septic shock; J96.01 Acute respiratory failure with hypoxia; N17.9 Acute kidney failure, unspecified; N39.0 Urinary tract infection, site not specified; I48.1 Persistent atrial fibrillation; I13.0 Hypertensive heart and chronic kidney disease with heart failure and stage 1 through stage 4 chronic kidney disease, or unspecified chronic kidney disease; I50.1 Left ventricular failure, unspecified; E87.2 Acidosis; J98.11 Atelectasis; J44.1 Chronic obstructive pulmonary disease with (acute) exacerbation; I42.9 Cardiomyopathy, unspecified; K92.2 Gastrointestinal hemorrhage, unspecified; D68.8 Other specified coagulation defects; Z79.01 Long term (current) use of anticoagulants; N18.9 Chronic kidney disease, unspecified; Z95.0 Presence of cardiac pacemaker; Z95.4 Presence of other heart-valve replacement; E87.5 Hyperkalemia; H61.21 Impacted cerumen, right ear; D64.9 Anemia, unspecified; E66.9 Obesity, unspecified; Z68.33 Body mass index [BMI] 33.0-33.9, adult; F17.210 Nicotine dependence, cigarettes, uncomplicated; R31.0 Gross hematuria; E83.39 Other disorders of phosphorus metabolism; Z53.29 Procedure and treatment not carried out because of patient's decision for other reasons; R19.00 Intra-abdominal and pelvic swelling, mass and lump, unspecified site; K31.819 Angiodysplasia of stomach and duodenum without bleeding; F10.10 Alcohol abuse, uncomplicated; I45.10 Unspecified right bundle-branch block; T45.515A Adverse effect of anticoagulants, initial encounter
CPT/HCPCS: 31500; 36415; 36430; 36511; 36600; 70450-TC; 71010-TC; 71250-TC; 74176-TC; 76856-TC; 80048; 80053; 80307; 81003; 81015; 82140; 82272; 82375; 82570; 82803; 83050; 83605; 83690; 83735; 83880; 84100; 84156; 84300; 84484; 84540; 85025; 85027; 85610; 85730; 86850; 86900; 86901; 86922; 87040; 87070; 87086; 87205; 87324; 87449; 93005; 93010; 93306-TC; 94002; 94640; 97116-GP; 97161-GP; 99285-25; G0480; J1250; J1644; P9017; P9038; P9058

== ENCOUNTER 2017-10-24 05:53 | Emergency (ER) | payer OTHER ==
--- NOTE | 2017-10-24 06:05 | PDOC ---
Attending Attestation - Resident Resident Name: RaymonisidoroTemo - ED Attending Attestation I have performed the following: I have examined & evaluated the patient, The case was reviewed & discussed with the resident, I agree w/resident's findings & plan, Exceptions are as noted <Kolby Harmon - Last Filed: 10/24/17 06:04> - HPI HPI: 10/24/17 06:08 The patient is a 86 year old male, with a significant past medical history of A- Fib(on coumadin), CHF, hypertension, aortic aneurysm repair, aortic valve replacement, GI bleeds(Hgb was stable so they put the pt back on coumadin due to hx of A-Fib)who presents to the ED BIBA from [facility] for nose bleed for 3 hours. The patient awoke from sleep with a nose bleed and activated EMS. His nose was packed and clamped in the field. He denies difficulty breathing, nose pain, and chest pain. - Physicial Exam PE: 10/24/17 06:08 GENERAL: Well-appearing, well-nourished. No apparent distress. HEENT: +Nose bleed. PERRL, EOM intact. CARDIOVASCULAR: Normal S1, S2. Regular rate and rhythm. PULMONARY: Clear to auscultation bilaterally. ABDOMEN: Soft, non-distended, non-tender. EXTREMITIES: Normal ROM in all four extremities. No gross deformities. SKIN: Warm, dry. No rash NEUROLOGICAL: No focal neurological deficits. - Medical Decision Making 10/24/17 06:08 Documentation prepared by Erick Cruz, acting as medical observer for Kolby Harmon DO. <Erick Cruz - Last Filed: 10/24/17 06:09>
--- NOTE | 2017-10-24 06:15 | PDOC ---
History of Present Illness - General Stated Complaint: NOSEBLEED Time Seen by Provider: 10/24/17 05:55 History Source: Patient Exam Limitations: Other (hard of hearing) - History of Present Illness Initial Comments: 10/24/17 06:08 Patient is an 86M with history of afib, AAA (s/p aortic aneurysm repair), Aortic Stenosis (s/p AVR), CHF, HTN, afib (on coumadin) coming in today complaining of nosebleed that started at 3am today. EMS reports that the patient was initially controlled but started oozing after they started evaluating him. Bleeding controlled with bandage around nose. Patient denies chest pain, shortness of breath, and pain in his nose. Past History - Past Medical History Allergies/Adverse Reactions: Allergies Allergy/AdvReac Type Severity Reaction Status Date / Time No Known Allergies Allergy Verified 10/24/17 06:14 Home Medications: Ambulatory Orders Ferrous Sulfate 325 mg PO BID 01/13/17 Folic Acid 1 mg PO DAILY 01/13/17 Pantoprazole Sodium 40 mg PO BID 01/13/17 Simvastatin 40 mg PO HS 01/13/17 Sucralfate [Carafate -] 1 gm PO AC 01/13/17 Metoprolol Tartrate [Lopressor -] 25 mg PO BID tablet 01/24/17 Ascorbate Calcium [Vitamin C] 500 mg PO BID 10/24/17 Bacitracin Zinc 1 each TP HS 10/24/17 Docusate Sodium [Colace] 200 mg PO HS 10/24/17 Ergocalciferol (Vitamin D2) [Vitamin D2] 50,000 unit PO Q30D 10/24/17 Hydrocortisone 1% Cream [Hytone 1% Cream -] 1 applic TP TID 10/24/17 Multivitamin [One Daily] 1 each PO DAILY 10/24/17 Nystatin Ointment [Mycostatin Ointment -] 1 applic TP TID 10/24/17 Petrolatum, Yellow [Petrolatum] 1 applic TP DAILY 10/24/17 Potassium Chloride [K-Dur -] 10 meq PO DAILY 10/24/17 Thiamine HCl [Vitamin B1] 100 mg PO DAILY 10/24/17 Warfarin Sodium [Coumadin] 4 mg PO HS 10/24/17 Zinc Oxide 30 gm TP TID 10/24/17 Anemia: No Asthma: No Cancer: No Cardiac Disorders: Yes (a fib) CVA: No COPD: No CHF: No Dementia: No Diabetes: No GI Disorders: No Disorders: No HTN: No Hypercholesterolemia: No Liver Disease: No Seizures: No Thyroid Disease: No - Surgical History Abdominal Surgery: No Appendectomy: No Cardiac Surgery: Yes (pacemaker) Cholecystectomy: No Lung Surgery: No Neurologic Surgery: No Orthopedic Surgery: No - Suicide/Smoking/Psychosocial Hx Smoking History: Current every day smoker Number of Cigarettes Smoked Daily: 10 Hx Alcohol Use: Yes (60mL gin daily) Drug/Substance Use Hx: No Substance Use Type: None Review of Systems - Review of Systems Able to Perform ROS?: Yes Comments:: 10/24/17 06:10 GENERAL/CONSTITUTIONAL: No fever or chills. No weakness. HEAD, EYES, EARS, NOSE AND THROAT: No change in vision. No sore throat. CARDIOVASCULAR: No chest pain or shortness of breath RESPIRATORY: No cough, wheezing, or hemoptysis. GASTROINTESTINAL: No nausea, vomiting, diarrhea or constipation. GENITOURINARY: No dysuria, frequency, or change in urination. MUSCULOSKELETAL: No joint or muscle swelling or pain. No neck or back pain. SKIN: No rash NEUROLOGIC: No headache, vertigo, loss of consciousness, or change in strength/ sensation. ENDOCRINE: No increased thirst. No abnormal weight change HEMATOLOGIC/LYMPHATIC: Positive for history of anemia an dblood clots ALLERGIC/IMMUNOLOGIC: No hives or skin allergy. *Physical Exam - Physical Exam Comments: 10/24/17 06:11 GENERAL: Awake, alert, and fully oriented, in no acute distress, deaf HEAD: No signs of trauma, normocephalic, atraumatic EYES: PERRLA, EOMI, sclera anicteric, conjunctiva clear ENT: Auricles normal inspection, hearing grossly normal, oropharynx clear without exudates. Moist mucosa. Bandaged nose. NECK: Normal ROM, supple, no lymphadenopathy, JVD, or masses LUNGS: No distress, speaks full sentences, clear to auscultation bilaterally HEART: Regular rate and rhythm, normal S1 and S2, no murmurs, rubs or gallops, peripheral pulses normal and equal bilaterally. ABDOMEN: Soft, nontender, normoactive bowel sounds. No guarding, no rebound. No masses EXTREMITIES: Normal inspection, Normal range of motion, no edema. No clubbing or cyanosis. NEUROLOGICAL: Cranial nerves II through XII grossly intact. Normal speech, no focal sensorimotor deficits SKIN: Warm, Dry, normal turgor, no rashes or lesions noted. ED Treatment Course - LABORATORY CBC & Chemistry Diagram: 10/24/17 06:30 Medical Decision Making - Medical Decision Making 10/24/17 06:11 Patient is 86M with history of afib, AAA (s/p aortic aneurysm repair), Aortic Stenosis (s/p AVR), CHF, HTN, afib (on coumadin) with nosebleed. Controlled now after EMS placed bandage. Added makeshift clips to hold pressure on nares. Patient is comfortable. Will check CBC and PT/INR. Will signout to day team. 10/24/17 06:26 Bleeding has stopped after bandaged and clips removed. 10/24/17 06:[address] Mena. *DC/Admit/Observation/Transfer Diagnosis at time of Disposition: Nosebleed - Discharge Dispostion Condition at time of disposition: Stable - Referrals Referrals: Roque Chandra MD [Primary Care Provider] - - Patient Instructions - Post Discharge Activity
[2017-10-24 06:17] VITALS: BMI 28.1
[2017-10-24 06:45] LABS: HEMATOCRIT 29.8 % (35.4-49); HEMOGLOBIN 10.1 GM/dL (11.7-16.9); MCH 32.1 pg (25.7-33.7); MCHC 33.8 g/dl (32.0-35.9); MEAN CELL VOLUME 94.8 fl (80-96); MEAN PLT VOLUME 6.7 fl (7.5-11.1); PLATELET COUNT 115 K/MM3 (134-434); RBC 3.15 M/mm3 (4.00-5.60); RDW 14.8 % (11.9-15.9); WHITE BLOOD COUNT 3.9 K/mm3 (4.0-10.0)
[2017-10-24 06:49] LABS: INR 2.3 (0.82-1.09)
--- NOTE | 2017-10-24 08:37 | PDOC ---
*Physical Exam - Vital Signs Last Vital Signs Temp Pulse Resp BP Pulse Ox 97.7 F 72 20 152/58 96 10/24/17 06:14 10/24/17 06:14 10/24/17 06:14 10/24/17 06:14 10/24/17 06:14 10/24/17 08:22 Patient's care endorsed to me by Drs. Hill and Faustino at the end of their shifts. Patient is an 86 YOM on warfarin for A-fib, also has pacer in place, who p/w epistaxis since 3 am. Seems to have resolved after direct pressure applied with clips. Will observe until ~9am for recurrence, also will f/u CBC and coags which are pending. ED Treatment Course - LABORATORY CBC & Chemistry Diagram: 10/24/17 06:30 - ADDITIONAL ORDERS Additional order review: Laboratory Results 10/24/17 06:30 PT with INR 26.00 H INR 2.30 H 10/24/17 06:30 RBC 3.15 L MCV 94.8 MCHC 33.8 RDW 14.8 MPV 6.7 L Medical Decision Making - Medical Decision Making Laboratory Tests 10/24/17 10/24/17 06:30 06:30 WBC 3.9 L RBC 3.15 L Hgb 10.1 L D Hct 29.8 L MCV 94.8 MCH 32.1 MCHC 33.8 RDW 14.8 Plt Count 115 L D MPV 6.7 L PT with INR 26.00 H INR 2.30 H 10/24/17 08:37 CBCD shows anemia which is actually improved from his baseline values. INR is within therapeutic range. No recurrence of nosebleed. *DC/Admit/Observation/Transfer Diagnosis at time of Disposition: Nosebleed Afib Qualifiers: Atrial fibrillation type: unspecified Qualified Code(s): I48.91 - Unspecified atrial fibrillation - Discharge Dispostion Disposition: [facility] Condition at time of disposition: Stable Decision to Admit order: No - Referrals Referrals: Roque Chandra MD [Primary Care Provider] - - Patient Instructions Printed Discharge Instructions: DI for Nosebleed Additional Instructions: You were seen in the ER for a nosebleed. We were able to get the bleeding to stop and we observed you to make sure the nosebleed did not recur. Your labs are within normal range. After our assessment, we do not believe you are having a medical emergency at this time, and we believe you are safe to go home. Please follow up with your regular PCP doctor in 1-3 days. Call their clinic as soon as possible, tell them you were seen in the ER, and tell them you need an appointment. If you have any new or worsening symptoms, especially another nosebleed that you cannot control with direct pressure, or any lightheadedness/ dizziness, loss of consciousness, headache, or other concerning symptoms, please come back to the ER at any time (24 hours a day). If you are having severe or life threatening symptoms, or symptoms that make it unsafe to drive or have someone drive you, please call 911. - Post Discharge Activity
[2017-10-24 09:26] VITALS: TEMP 98.2
[2017-10-24 12:34] VITALS: BP 128/69; PULSE 73
== END 2017-10-24 11:40 ==
LOC: JER 05:53
DX: R04.0 Epistaxis (principal); F17.210 Nicotine dependence, cigarettes, uncomplicated; I48.91 Unspecified atrial fibrillation; Z79.01 Long term (current) use of anticoagulants; Z95.0 Presence of cardiac pacemaker; I10 Essential (primary) hypertension; I71.4 Abdominal aortic aneurysm, without rupture
CPT/HCPCS: 36415; 85027; 85610; 99284-25

== ENCOUNTER 2018-10-19 19:16 | Emergency (ER) | payer OTHER ==
[2018-10-19 19:33] VITALS: BMI 36.0
--- NOTE | 2018-10-19 19:55 | PDOC ---
History of Present Illness - General Chief Complaint: Abnormal Lab Results (Outside) Stated Complaint: ABNORMAL LABS Time Seen by Provider: 10/19/18 19:27 History Source: Correction Records, Primary Care Provider Exam Limitations: Other (Deaf) - History of Present Illness Initial Comments: 10/19/18 19:51 87M with a PMH of afib, AAA (s/p aortic aneurysm repair), Aortic Stenosis (s/p AVR), CHF, HTN, afib (on coumadin), hearing impaired, who presents to the ER for abnormal labs. Hx provided by pt's physician from Dr. Kristofer Pat who states that the patient was not in his normal state of health today. He was more lethargic and pale. He has a hx of a GIB which required 14 units of blood transfused in the past. He also has a groin abscess for which he is on zosyn now. His current Hgb is 6.9 and INR of 4.2. Past History - Past Medical History Allergies/Adverse Reactions: Allergies Allergy/AdvReac Type Severity Reaction Status Date / Time No Known Allergies Allergy Verified 10/19/18 19:33 Home Medications: Ambulatory Orders Ferrous Sulfate 325 mg PO BID 01/13/17 Folic Acid 1 mg PO DAILY 01/13/17 Pantoprazole Sodium 40 mg PO BID 01/13/17 Simvastatin 40 mg PO HS 01/13/17 Sucralfate [Carafate -] 1 gm PO AC 01/13/17 Metoprolol Tartrate [Lopressor -] 25 mg PO BID tablet 01/24/17 Ascorbate Calcium [Vitamin C] 500 mg PO BID 10/24/17 Bacitracin Zinc 1 each TP HS 10/24/17 Docusate Sodium [Colace] 200 mg PO HS 10/24/17 Ergocalciferol (Vitamin D2) [Vitamin D2] 50,000 unit PO Q30D 10/24/17 Hydrocortisone 1% Cream [Hytone 1% Cream -] 1 applic TP TID 10/24/17 Multivitamin [One Daily] 1 each PO DAILY 10/24/17 Nystatin Ointment [Mycostatin Ointment -] 1 applic TP TID 10/24/17 Petrolatum, Yellow [Petrolatum] 1 applic TP DAILY 10/24/17 Potassium Chloride [K-Dur -] 10 meq PO DAILY 10/24/17 Thiamine HCl [Vitamin B1] 100 mg PO DAILY 10/24/17 Warfarin Sodium [Coumadin] 4 mg PO HS 10/24/17 Zinc Oxide 30 gm TP TID 10/24/17 Anemia: No Asthma: No Cancer: No Cardiac Disorders: Yes (a fib) CVA: No COPD: No CHF: No Dementia: No Diabetes: No GI Disorders: No Disorders: No HTN: No Hypercholesterolemia: No Liver Disease: No Seizures: No Thyroid Disease: No - Surgical History Abdominal Surgery: No Appendectomy: No Cardiac Surgery: Yes (pacemaker) Cholecystectomy: No Lung Surgery: No Neurologic Surgery: No Orthopedic Surgery: No - Suicide/Smoking/Psychosocial Hx Smoking History: Never smoked Have you smoked in the past 12 months: No Number of Cigarettes Smoked Daily: 10 Information on smoking cessation initiated: No Hx Alcohol Use: No Drug/Substance Use Hx: No Substance Use Type: None Review of Systems - Review of Systems Able to Perform ROS?: No *Physical Exam - Vital Signs Last Vital Signs Temp Pulse Resp BP Pulse Ox 99.5 F 94 H 19 115/51 L 96 10/19/18 19:16 10/19/18 19:16 10/19/18 19:16 10/19/18 19:16 10/19/18 19:16 - Physical Exam Comments: 10/19/18 19:53 GENERAL: Well developed, well nourished. Awake and alert. No acute distress. HEENT: Normocephalic, atraumatic. Hearing grossly normal. Moist mucous membranes. PERRLA, EOMI. No conjunctival pallor. Sclera are non-icteric. NECK: Supple. Full ROM. No JVD. CARDIOVASCULAR: Regular rate and rhythm. No murmurs, rubs, or gallops. PULMONARY: No evidence of respiratory distress. Lungs clear to auscultation bilaterally. No wheezing, rales or rhonchi. ABDOMINAL: Soft. Diffuse TTP. Non-distended. No rebound or guarding. : R groin open wound with granulation tissue. MUSCULOSKELETAL: TTP over L superior anterior chest wall. Normal range of motion at all joints. EXTREMITIES: No cyanosis. No clubbing. 2-3+ pitting edema. No calf tenderness or swelling. SKIN: Warm and dry. Normal capillary refill. No rashes. No jaundice. NEUROLOGICAL: Alert, awake, appropriate. Cranial nerves 2-12 grossly intact. PSYCHIATRIC: Cooperative. Good eye contact. Appropriate mood and affect. ED Treatment Course - LABORATORY CBC & Chemistry Diagram: 10/19/18 21:25 10/19/18 21:25 - RADIOLOGY Radiology Studies Ordered: Category Date Time Status ABDOMEN CTA W/WO CONTRAST [CT] Stat CT Scan 10/19/18 19:49 Ordered CHEST CTA [CT] Stat CT Scan 10/19/18 19:49 Ordered CHEST X-RAY PORTABLE* [RAD] Stat Radiology 10/19/18 19:37 Taken Medical Decision Making - Medical Decision Making 10/19/18 19:54 87M with MMP including massive GIB, AAA on coumadin who presents to the ER with Hgb of 6.9 and INR of 4.2. Pt cannot provide any history. Will draw labs and image appropriately. Pt currently on monitor and appears well otherwise. Concern for recurrent GIB, sepsis from open wound, and AAA rerupture. 10/19/18 21:35 Rectal temp 101.2. Septic workup ordered. IV access was difficult to establish and a central line was opted for as patient needs multiple IV medications (abx, antipyretics, and blood products). Central line was placed emergently in sterile fashion in L femoral. Pt tolerated procedure well and blood was seen at all 3 port sites. Labs show CBC with Hgb of 7.4. Pending stool occult. CMP hemolyzed and resent. 10/19/18 21:38 INR of 5.4. Stool occult pending. 10/19/18 21:38 Stool occult negative. Pt unable to consent as he is deaf and does not speak ASL. Pt has signed documentation stating that he would like all medical treatments. Will give blood products. 10/20/18 02:11 Pt was taken to CT and US without any issues or concerns. Upon return from CT, pt noted to be hypotensive. Fluids ordered and blood products ordered. 1 unit pressure-bagged and given to patient with improvement of BP. Pt noted to be more alert. CT Impression: Large slightly hyperdense and heterogeneous masslike density anterior to the right shoulder and upper anterior chest melendrez suggestive of a large hematoma measuring 15 x 6 cm in transverse and AP dimension with a superior margin not included on this exam. There is aneurysmal dilatation and proximal portion of the aortic arch measuring 4.4 cm. Normal enhancement of the main pulmonary artery and its proximal branches. Mild atelectatic changes mainly in the left lung base without definite infiltrates. There is significant aneurysmal dilatation of the distal abdominal aorta with an aortobiiliac patent stent. There is also focal aneurysmal dilatation the proximal right internal iliac artery measuring 3.3 cm and in the mid left internal iliac artery measuring 3 cm in diameter. Focal aneurysmal dilatation of the right common femoral artery measuring 3.5 cm. Extensive atheromatous plaques are present, throughout. No extravasation of contrast or para-aortic fluid collection is identified No gross organomegaly, free air or free fluid are present in the abdomen pelvis. There is mild stranding in the left paracolic gutter which is nonspecific. Nondistention of the ascending colon cannot rule out wall thickening. Small gallstones without CT evidence of acute cholecystitis. Small fat-containing left inguinal hernia with a large masslike density in the left scrotum measuring 8 x 6 cm. Please correlate with scrotal ultrasound findings. Dr. Echevarria, thoracic surgery, contacted for aneurysmal dilatation and he recommends calling CT surgery at [facility]. Case d/w CT surgery at [facility], Dr. Vicente, who accepts the patient. Dr. Velazco notified in ED. Pt noted to be hypotensive prior to transfer. 2nd unit of blood given. FFP given d/t supratherapuetic INR and concern for thoracic aneurysm/rupture. Pt stable for transfer in ALS w/ nurse. *DC/Admit/Observation/Transfer Diagnosis at time of Disposition: Open wound Thoracic aortic aneurysm Qualifiers: Presence of rupture: without rupture Qualified Code(s): I71.2 - Thoracic aortic aneurysm, without rupture - Discharge Dispostion Disposition: TRANSFER ACUTE CARE/OTHER HOSP Condition at time of disposition: Critical Decision to Admit order: No - Referrals Referrals: Roque Chandra MD [Primary Care Provider] - - Patient Instructions - Post Discharge Activity - Transfer to Acute Care Facility Receiving Facility: [facility]. Accepting Physician:: Dr. Vicente
[2018-10-19] MEDS ORDERED: ACETAMINOPHEN 1000 MG/100 ML VIAL (NON FORMULARY) IVPB ONE (20:31)
[2018-10-19] MEDS ORDERED: VANCOMYCIN 1,000 MG in DEXTROSE 5%-WATER - 250 ML IVPB ONE (20:31)
[2018-10-19] MEDS ORDERED: PIPERACILLIN/TAZOB 4.5 GM 4.5 GM in DEXTROSE 5%-WATER 100 ML IVPB ONE (20:31)
[2018-10-19] MEDS ORDERED: PIPERACILLIN/TAZOB 4.5 GM 4.5 GM/100 ML BAG IVPB ONE (20:56)
[2018-10-19] MEDS ORDERED: ACETAMINOPHEN INJECTION 100 ML IVPB ONE (20:56)
[2018-10-19 21:28] LABS: BASO % 0.4 % (0-2.0); HEMATOCRIT 21.9 % (35.4-49); HEMOGLOBIN 7.4 GM/dL (11.7-16.9); LYMPH % 20.4 % (8-40); MCH 31.7 pg (25.7-33.7); MCHC 33.6 g/dl (32.0-35.9); MEAN CELL VOLUME 94.3 fl (80-96); MEAN PLT VOLUME 7.8 fl (7.5-11.1); MONO % 18.7 % (3.8-10.2); NEUT % 56.5 % (42.8-82.8); PLATELET COUNT 144 K/MM3 (134-434); RBC 2.32 M/mm3 (4.00-5.60); RDW 19.3 % (11.9-15.9); WHITE BLOOD COUNT 2.4 K/mm3 (4.0-10.0)
[2018-10-19 21:35] LABS: PROTHROMBIN TIME (PATIENT) 64.9 SEC (9.7-13.0)
[2018-10-19 21:38] LABS: INR 5.41 (0.83-1.09)
[2018-10-19 21:46] LABS: ALBUMIN 1.7 g/dl (3.4-5.0); ALK PHOS 53 U/L (45-117); ANION GAP 4 MMOL/L (8-16); BILIRUBIN,TOTAL 0.4 mg/dL (0.2-1); BLOOD UREA NITROGEN 49.7 mg/dL (7-18); CALCIUM 8.5 mg/dL (8.5-10.1); CHLORIDE 99 mmol/L (98-107); CO2 32 mmol/L (21-32); CREATININE 1.3 mg/dL (0.55-1.3); GLUCOSE,RANDOM 103 mg/dL (74-106); POTASSIUM 5.7 mmol/L (3.5-5.1); SGOT/AST 87 U/L (15-37); SGPT/ALT 13 U/L (13-61); SODIUM 135 mmol/L (136-145); TOT PROT 4.7 g/dl (6.4-8.2)
[2018-10-19 21:59] LABS: BASO % 0.3 % (0-2.0); HEMATOCRIT 21.8 % (35.4-49); HEMOGLOBIN 7.4 GM/dL (11.7-16.9); LYMPH % 16.2 % (8-40); MCH 31.7 pg (25.7-33.7); MCHC 33.7 g/dl (32.0-35.9); MEAN CELL VOLUME 93.9 fl (80-96); MEAN PLT VOLUME 7.6 fl (7.5-11.1); MONO % 20.2 % (3.8-10.2); NEUT % 60.3 % (42.8-82.8); PLATELET COUNT 126 K/MM3 (134-434); RBC 2.32 M/mm3 (4.00-5.60); RDW 19.4 % (11.9-15.9); WHITE BLOOD COUNT 2.5 K/mm3 (4.0-10.0)
[2018-10-19] MEDS ORDERED: VANCOMYCIN 1 GRAM (PRE-DOCKED) 1,000 MG/250 ML BAG IVPB ONE (22:06)
[2018-10-19 22:08] LABS: INR 5.93 (0.83-1.09); PROTHROMBIN TIME (PATIENT) 71.3 SEC (9.7-13.0)
[2018-10-19] MEDS ORDERED: ACETAMINOPHEN 325 MG TABLET (FP) ONE (22:25)
[2018-10-19 22:26] LABS: ALBUMIN 1.7 g/dl (3.4-5.0); BILIRUBIN,TOTAL 0.5 mg/dL (0.2-1); BLOOD UREA NITROGEN 49.5 mg/dL (7-18); CALCIUM 8.7 mg/dL (8.5-10.1); CREATININE 1.2 mg/dL (0.55-1.3); MAGNESIUM 1.7 mg/dL (1.8-2.4); POTASSIUM 4.7 mmol/L (3.5-5.1); TOT PROT 4.4 g/dl (6.4-8.2)
[2018-10-19 23:07] LABS: PLATELET ESTIMATE SLT DECREASE
[2018-10-19] MEDS ORDERED: SODIUM CHLORIDE 0.9% 1000 ML INFUS.BAG IV ONE (23:19)
[2018-10-20] MEDS ORDERED: PHYTONADIONE 10 MG/1 ML AMP IVPB ONE (00:36)
[2018-10-20] MEDS ORDERED: PHYTONADIONE 10 MG/1 ML AMP ONE (01:19)
--- NOTE | 2018-10-20 02:02 | PDOC ---
Documentation entered by Katerin Andujar SCRIBE, acting as scribe for Kalani Valentin DO. Kalani Valentin DO: This documentation has been prepared by the Pratima andrews Brenda, SCRIBE, under my direction and personally reviewed by me in its entirety. I confirm that the documentation accurately reflects all work , treatment, procedures, and medical decision making performed by me. Attending Attestation - Resident Resident Name: LazkietCorby - ED Attending Attestation I have performed the following: I have examined & evaluated the patient, The case was reviewed & discussed with the resident, I agree w/resident's findings & plan - HPI HPI: 10/19/18 20:35 The patient is an 87 year old male, with a significant PMH of Afib, AAA (s/p aortic aneurysm repair), Aortic Stenosis (s/p AVR), CHF, HTN, afib (on coumadin) , hearing impaired and GI bleed who presents to the emergency department with abnormal labs. History was provided by the patients physician from [facility], Dr. Miner. The physician states that the patient was not at baseline today, noting that he was lethargic and pale. He also notes that the patient has a groin abscess , but is on zosyn for. The patient is also noted to have a mild dilation in abdomen, pale and not responsive. Allergies: NKA Past surgical history: As per [facility] notes PCP:Dr. Chandra [facility] Physician: Dr. Miner - Physicial Exam PE: 10/19/18 20:02 Agrees with resident's exam. - Critical Care Time Total Critical Care Time: 120 Critical Care Statement: The care of this patient involved high complexity decision making to prevent further life threatening deterioration of the patient 's condition and/or to evaluate & treat vital organ system(s) failure or risk of failure. - Medical Decision Making 10/20/18 01:56 87-year-old male sent for decreased mental status and acute anemia as well as elevated INR In the process of workup patient became acutely hypotensive and tachycardic A CTA of the chest abdomen and pelvis was ordered but it was requested by radiology staff that a CT with and without IV contrast be done instead due to concerns of contrast administration through central line No peripheral axis was able to be obtained after multiple attempts CT scan of the chest abdomen and pelvis was significant for a large chest wall hematoma as well as aortic arch aneurysm, 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
[2018-10-20 02:51] VITALS: BP 105/72; PULSE 92; TEMP 97.8
--- NOTE | 2018-10-20 12:08 | EKG ---
Test Reason : Blood Pressure : / mmHG Vent. Rate : 121 BPM Atrial Rate : 127 BPM P-R Int : 180 ms QRS Dur : 152 ms QT Int : 324 ms P-R-T Axes : 002 105 060 degrees QTc Int : 460 ms ATRIAL FIBRILLATION WITH RAPID VENTRICULAR RESPONSE RIGHT BUNDLE BRANCH BLOCK T WAVE ABNORMALITY, CONSIDER LATERAL ISCHEMIA ABNORMAL ECG Confirmed by MD CARLOS, ARASELI ([id number]) on 10/20/2018 12:07:37 PM Referred By: Confirmed By:ARASELI GONZALEZ MD
== END 2018-10-20 02:00 | disposition short-term general hospital (02) ==
LOC: JER 19:16
PROC: 3E03329 Introduction of Other Anti-infective into Peripheral Vein, Percutaneous Approach (ICD-10-PCS; principal; 2018-10-19)
PROC: 3E03329 Introduction of Other Anti-infective into Peripheral Vein, Percutaneous Approach (ICD-10-PCS; 2018-10-19)
PROC: 3E033NZ Introduction of Analgesics, Hypnotics, Sedatives into Peripheral Vein, Percutaneous Approach (ICD-10-PCS; 2018-10-19)
PROC: 3E033GC Introduction of Other Therapeutic Substance into Peripheral Vein, Percutaneous Approach (ICD-10-PCS; 2018-10-19)
DX: I71.2 Thoracic aortic aneurysm, without rupture (principal); I11.0 Hypertensive heart disease with heart failure; I50.9 Heart failure, unspecified; I48.91 Unspecified atrial fibrillation; Z79.01 Long term (current) use of anticoagulants; H91.93 Unspecified hearing loss, bilateral; Z95.2 Presence of prosthetic heart valve
CPT/HCPCS: 36415; 36430; 36511; 71045-TC-FY; 71260-TC; 74176-TC; 74177-TC; 76870-TC; 76882-TC-RT-FY; 80053; 82272; 82550; 82553; 83605; 83690; 83735; 83880; 84484; 85025; 85610; 86922; 87040; 93005; 93010; 96365; 96368; 96375; 99285-25; J0131; J7030; P9017; P9038; P9058